=== PATIENT | male | born 1955 | race Caucasian/White ===

== ENCOUNTER 2017-07-18 13:03 | Inpatient (IN) ==
[2017-07-18] MEDS ORDERED: methylPREDNISolone 125 MG/2 ML VIAL IVP ONE (13:10)
[2017-07-18] MEDS ORDERED: Ipratropium/Albuterol Neb 3 ML IH ONE (13:10)
[2017-07-18 13:37] LABS: Basophils % 0.2 %; Eosinophils # 0.1 K/mcL (0.0-0.6); Hematocrit 44.6 % (37.5-50.1); Hemoglobin 15.3 g/dL (12.9-16.9); Lymphocytes # 1.4 K/mcL (0.6-4.6); Lymphocytes % 14.6 %; Mean Corpuscular HGB Conc 34.3 g/dL (31.6-35.5); Mean Corpuscular Hemoglobin 30.5 pg (28.0-33.3); Mean Platelet Volume 10.3 fL (9.4-12.4); Monocytes % 10.3 %; Platelet Count 237 K/mcL (140-400); Red Blood Count 5.01 M/mcL (4.19-5.50); Red Cell Distribution Width 13.1 % (11.5-14.5); Segmented Neutrophils % 72.9 %
[2017-07-18 13:44] LABS: Neutrophils # 6.9 K/mcL (1.6-8.9)
--- NOTE | 2017-07-18 13:47 | Emergency Department Note ---
Disposition Clinical Impression: Acute exacerbation of chronic obstructive airways disease, KAMERON (acute kidney injury), Low O2 saturation Congestive heart failure Qualifiers: Congestive heart failure type: unspecified congestive heart failure type Congestive heart failure chronicity: acute on chronic Qualified Code(s): I50.9 - Heart failure, unspecified Disposition: Admitted As Inpatient Condition: Fair Time of Disposition: 15:12 SOB HPI - General Chief Complaint: ED Shortness of Breath/Dyspnea Stated Complaint: francisco Time Seen by Provider: 07/18/17 13:09 Source: patient, EMS Mode of arrival: EMS Limitations: no limitations Nursing Notes Reviewed: Yes Vital Signs Reviewed: Yes - History of Present Illness 62-year-old male since the ED complaining of shortness of breath is gone on for about 2 weeks. He put a cold and did not come in until now he said that he is having a hard time breathing at 20 came here. Patient presented with EMS. He does have a history of CHF and COPD. He does have CPAP machine at home does not normally use oxygen at home. He has never had be intubated due to his COPD. Although he has had to be admitted. He has never been on BiPAP. Patient states this feels like either CHF or COPD exacerbation. Patient does have a history of being hypotensive in the 80/60s which is normal for him. Patient states he is felt warm but has not checked the temperature. He is on no semi-increased swelling in his legs has also more in his belly. He is complaining of no nausea or vomiting. No headaches or blurry vision. No abdominal pain. No changes with bowel movements or pain with urination. He has no back pain. He is having no chest pain just feels a hard to catch his breath. Patient otherwise has no complaints. - Related Data Home Medications Medication Instructions Recorded Confirmed Albuterol Sulfate [Albuterol 1 - 2 puff IH Q4HR PRN 08/16/15 07/18/17 Inhaler] Atorvastatin [Lipitor] 40 mg PO DAILY 08/16/15 07/18/17 Fluticasone Propionate Nasal 50 mcg NS DAILY 08/16/15 07/18/17 [Flonase] Hydrochlorothiazide 25 mg PO DAILY 08/16/15 07/18/17 Lisinopril [Zestril] 10 mg PO DAILY 08/16/15 07/18/17 Carvedilol [Carvedilol] 12.5 mg PO BID 07/18/17 07/18/17 Ciprofloxacin/Dex *EAR* Susp 1 drop BOTH EARS BID 07/18/17 07/18/17 [Ciprodex *EAR* Susp] Fluticasone/Salmeterol [Advair Hfa 1 puff IH BID 07/18/17 07/18/17 115-21 Mcg Inhaler] Furosemide [Lasix] 20 mg PO DAILY 07/18/17 07/18/17 Montelukast [Singulair] 10 mg PO DAILY 07/18/17 07/18/17 Allergies Allergy/AdvReac Type Severity Reaction Status Date / Time penicillin V Allergy Mild REDNESS Verified 07/18/17 13:11 HIVES COMA 3 DAYS Review of Systems: 10 point review of systems done and negative unless otherwise stated in history of present illness. All systems ED: reviewed and negative except as stated. Review of Systems: As Per HPI Past Medical History - Past Medical History Attestation: Yes The following information was validated with the patient. Medical history: Reports: CHF, COPD, hypertension Surgical history: Reports: other Psychiatric history: Reports: no psych history - Social History Smoking Status: Never smoker Smokeless Tobacco Status: No Alcohol use: Reports: occasionally Drug use: Reports: none Physical Exam - General Limitations: no limitations General appearance: alert, in no apparent distress - Head Head exam: atraumatic - Eye Eye exam: Present: normal appearance, PERRL, EOMI - ENT ENT exam: normal exam, normal oropharynx, mucous membranes moist - Neck Neck exam: Present: normal inspection, full ROM, trachea midline - Chest Chest inspection: Present: normal inspection, symmetric chest wall rise - Respiratory Respiratory exam: Present: normal lung sounds bilaterally, respiratory distress (Very mild), wheezes (End expiratory), accessory muscle use, prolonged expiratory phase. Absent: stridor - Cardiovascular Cardiovascular exam: Present: regular rate, normal rhythm, normal heart sounds - Abdominal Exam Abdominal exam: Present: soft, Non-Tender, distention, normal bowel sounds. Absent: tenderness, guarding, rebound, rigidity - Extremities Exam Extremities exam: Present: normal inspection, full ROM, normal capillary refill , pedal edema (Bilateral 1+ pedal edema.). Absent: tenderness - Expanded Lower Extremity Exam Neurovascular/Tendon exam: Absent: motor deficit, sensory deficit, tendon deficit - Back Exam Back exam: Present: normal inspection, full ROM. Absent: tenderness, CVA tenderness (R), CVA tenderness (L) - Neurological Exam Neurological exam: Present: alert, oriented X3 - Skin Skin exam: Present: warm, dry, intact, normal color Course Course Narrative: 62-year-old male presents to the ED complaining of shortness of breath does not history of CHF and COPD. We will do a normal chest pain and COPD workup including a 2 view chest x-ray, EKG, CBC, BMP, lactate, BNP, troponin. We will also get blood cultures. He was given 325 aspirin prior to his arrival. Due to his pressure we will not give him nitroglycerin. We will give him 125 of Solu-Medrol and give him 6 mL DuoNeb as yard he had 3 mL an route. Patient is okay with this plan. Patient most likely will need to be admitted for further evaluation. Vital Signs Temperature 99.2 F 07/18/17 13:05 Pulse Rate 67 07/18/17 13:05 Respiratory Rate 18 07/18/17 13:05 Blood Pressure 86/65 07/18/17 13:05 O2 Sat by Pulse Oximetry 90 07/18/17 13:05 Temperature 99.2 F 07/18/17 13:10 Pulse Rate 67 07/18/17 13:10 Respiratory Rate 18 07/18/17 13:10 Blood Pressure 86/65 07/18/17 13:10 O2 Sat by Pulse Oximetry 95 07/18/17 13:11 Oxygen Delivery Oxygen Delivery Room Air Shortness of Breath/Dyspnea - [facility] Narrative Medical decision making narrative: 62-year-old male present to the ED complaining of shortness of breath he does have history of CHF, COPD. when patient presented he was hypotensive 80/60 after talking to him he states that is his normal blood pressure as he normally runs at that pressure. He states that the stress of breath has been going on for a while. We did get basic labs which did show that he had an acute kidney injury and with an elevated creatinine. He also was low on potassium so we gave him by mouth potassium here. I gave him a dose of Solu-Medrol as well as a breathing treatment. Here he got aspirin prior to arrival as we did not give him anything here. His DuoNeb treatment that he did get helped him feel a lot better did help with his breathing. Chest x-ray was done outside facility which showed atelectasis and cardiomegaly. His [employer] is not here so we had to call for an EKG. He did have a left bundle-branch block but based on old EKG this is old for him. Patient has not had an echo or stress test done in a few years. Patient also had an elevated BNP which does go with his CHF. I admitted the patient to the hospitalist Dr. Machado who agreed to accept the patient for CHF exacerbation, acute kidney injury as well as mild COPD exacerbation. Patient is admitted in stable condition. He is no longer hypoxic as he is on now for liters by nasal cannula and satting at 96%. He normally does not wear oxygen at home. - Medical Records Medical records reviewed: Yes I reviewed the patient's medical records. - Lab Data Lab results reviewed: Yes I reviewed the patient's lab results. Result diagrams: 07/18/17 13:31 07/18/17 13:31 Lab Results 07/18/17 07/18/17 07/18/17 Range/Units 13:21 13:31 13:31 WBC 9.4 (4.3-11.1) K/mcL RBC 5.01 (4.19-5.50) M/mcL Hgb 15.3 (12.9-16.9) g/dL Hct 44.6 (37.5-50.1) % MCV 89.0 (83.0-100.0) fL MCH 30.5 (28.0-33.3) pg MCHC 34.3 (31.6-35.5) g/dL RDW 13.1 (11.5-14.5) % Plt Count 237 (140-400) K/mcL MPV 10.3 (9.4-12.4) fL Immature Gran % 1.0 (0-4) % Seg Neutrophils % 72.9 % Lymphocytes % 14.6 % Monocytes % 10.3 % Eosinophils % 1.0 % Basophils % 0.2 % Neutrophils # 6.9 (1.6-8.9) K/mcL Lymphocytes # 1.4 (0.6-4.6) K/mcL Monocytes # 1.0 (0.0-1.3) K/mcL Eosinophils # 0.1 (0.0-0.6) K/mcL Basophils # 0.0 (0.0-0.2) K/mcL Reactive Lymphocytes Present A (Not Present) Platelet Estimate Normal (Normal) Sodium 136 (136-145) mEq/L Potassium 3.3 L (3.5-4.5) mEq/L Chloride 102 (98-109) mEq/L Carbon Dioxide 23 (19-29) mEq/L BUN 17 (8-26) mg/dL Creatinine 1.39 H (0.72-1.25) mg/dL Est GFR ( Amer) > 60 (> 60) Est GFR (Non-Af Amer) 52 L (> 60) BUN/Creatinine Ratio 12 (6-26) Glucose 127 H (70-99) mg/dL Calculated Osmolality 285 (280-300) Lactic Acid (0.5-2.2) mmol/L Calcium 9.1 (8.6-10.8) mg/dL Troponin I 0.03 (0-0.03) ng/mL B-Natriuretic Peptide (0-100) pg/mL 07/18/17 07/18/17 Range/Units 13:31 13:31 WBC (4.3-11.1) K/mcL RBC (4.19-5.50) M/mcL Hgb (12.9-16.9) g/dL Hct (37.5-50.1) % MCV (83.0-100.0) fL MCH (28.0-33.3) pg MCHC (31.6-35.5) g/dL RDW (11.5-14.5) % Plt Count (140-400) K/mcL MPV (9.4-12.4) fL Immature Gran % (0-4) % Seg Neutrophils % % Lymphocytes % % Monocytes % % Eosinophils % % Basophils % % Neutrophils # (1.6-8.9) K/mcL Lymphocytes # (0.6-4.6) K/mcL Monocytes # (0.0-1.3) K/mcL Eosinophils # (0.0-0.6) K/mcL Basophils # (0.0-0.2) K/mcL Reactive Lymphocytes (Not Present) Platelet Estimate (Normal) Sodium (136-145) mEq/L Potassium (3.5-4.5) mEq/L Chloride (98-109) mEq/L Carbon Dioxide (19-29) mEq/L BUN (8-26) mg/dL Creatinine (0.72-1.25) mg/dL Est GFR ( Amer) (> 60) Est GFR (Non-Af Amer) (> 60) BUN/Creatinine Ratio (6-26) Glucose (70-99) mg/dL Calculated Osmolality (280-300) Lactic Acid 1.3 (0.5-2.2) mmol/L Calcium (8.6-10.8) mg/dL Troponin I (0-0.03) ng/mL B-Natriuretic Peptide 330 H (0-100) pg/mL - Radiology Data Radiology results reviewed: Yes I reviewed the patient's radiology results. - EKG Data EKG attestation: Yes I reviewed and interpreted this EKG. EKG results narrative: EKG done at 1305 myself and the attending shows an atrial paced rhythm at a rate of 84, NJ interval 216, QRS 124, QTC 449 with a leftward axis. There are signs of a left bundle branch block which is old based on old EKG in leads 1 aVL , V5 V6 otherwise no ST changes, no T-wave abnormalities. No signs of heart strain or hypertrophy. No other heart blocks. No signs of WPW/forgot his syndrome is compared with an old EKG done 05/24/14 that came from his [employer] in [place] that we had to get faxed which also shows the incomplete left bundle branch block but no other acute changes. Attestation Statement - Attestation Attestation: I examined this patient and my medical decision-making was reviewed with the Resident Physician, Dr. Leon. I agree with the documented findings, disposition and treatment plan as described except to the extent set forth below. Patient is a morbidly obese 62-year-old white male with history of CHF, COPD, CAD who presents to the emergency department today with increasing shortness of breath past few days. Patient states that his became ill approximately a week ago with cough congestion and upper respiratory symptoms and was placed on antibiotics, shortly after he began developing similar symptoms with some increased nasal congestion and coughing gradually worsening shortness of breath. Patient denies any fevers but has been having occasional chills and denies any posttussive emesis or hemoptysis. Patient went to an [facility] urgent care for evaluation today and they are he was found to be hypoxic, and chest x-ray showed mild interstitial edema with cardiomegaly so he was sent here for evaluation of possible exacerbation of his CHF. Patient denies any chest pain pressure or heaviness on arrival, is having increased work of breathing and tachypnea with hypoxia on room air. Patient is not on any supplemental oxygen at home. Patient states that his [employer] that he sees is out of [place]. Agree patient's physical exam findings as documented. Patient was hypotensive and hypoxic on arrival to the ED. Patient was placed on monitor tech continuous pulse ox IV saline well was established and he was placed on supplemental oxygen. Patient's labs were drawn and sent and EKG was obtained and chest x-ray was reviewed from the outlying facility. Chest x-ray does show cardiomegaly with interstitial edema no pleural effusions were seen. Patient's EKG shows a left bundle-branch morphology without acute ischemia, we obtained an old EKG from [place] which shows similar findings so this is not new today. Patient also has an AICD in place. Patient received aspirin, aerosols and IV steroids and states he feels that the symptoms are improved although he remains hypoxic on room air. His work of breathing has significantly improved. Patient's labs show an elevation in his BNP as well as his serum creatinine. At this time we will admit the patient for acute respiratory distress with hypoxia which is likely secondary to a combination of COPD exacerbation as well as his CHF. Case was discussed with the hospitalist who accepted the patient for admission for further evaluation and management.
[2017-07-18 13:51] LABS: BUN/Creatinine Ratio 12 (6-26); Blood Urea Nitrogen 17 mg/dL (8-26); Calcium 9.1 mg/dL (8.6-10.8); Carbon Dioxide 23 mEq/L (19-29); Chloride 102 mEq/L (98-109); Glucose 127 mg/dL (70-99); Osmolality,Calculated 285 (280-300); Potassium 3.3 mEq/L (3.5-4.5); Sodium 136 mEq/L (136-145); eGFR For African Americans > 60 (> 60); eGFR For Non-African Americans 52 (> 60)
[2017-07-18 13:58] LABS: Platelet Estimate Normal (Normal); Reactive Lymphocytes Present (Not Present)
[2017-07-18] MEDS ORDERED: Mag Hydrox/Al Hydrox/Simeth 30 ML UDC PO PRN (17:33)
[2017-07-18] MEDS ORDERED: Naloxone 0.4 MG/ML INJ IVP PRN (17:33)
[2017-07-18] MEDS ORDERED: Albuterol 2.5 MG/3 ML NEBULIZER IH PRN (17:45)
--- NOTE | 2017-07-18 18:26 | Internal Med History&Physical ---
<Mayra Doran - Last Filed: 07/18/17 18:53> Date of Encounter: 07/18/17 Time of Encounter: 18:20 Assessment and Plan (1) Congestive heart failure Current visit: Yes Status: Acute Patient has been in some increasing shortness of breath, he does have history of CHF with 25-30%. He has cardiologists in [place]. He has been experiencing lower extremity edema as well as abdominal girth swelling. He states he has been compliant with diet and fluid intake. We will diuresis patient increasing Lasix to 40 mg IV twice a day 2 monitor intake and output and daily weights [address] on fluid resection 1500ml 5 low Na diet. 6 obtain records from [place] cardiology Qualifiers: Congestive heart failure type: systolic Congestive heart failure chronicity : acute on chronic Qualified Code(s): I50.23 - Acute on chronic systolic ( congestive) heart failure (2) KAMERON (acute kidney injury) Current visit: Yes Status: Acute 1 patient has increasing creatinine 1.39. Baseline is around 1. Most likely prerenal patient's blood pressure has been in the 80s and he is on lisinopril. We will hold for now 2 continue to diurese and monitor creatinine 3 monitor intake and output daily weights 4. Avoid nephrotoxins (3) Acute and chronic respiratory failure Current visit: Yes Status: Acute 1 upon presentation patient was hypoxic 90 % on RA. most likely related to CHF exacerbation we will continue with O2 titrating to maintain Sp02 >92% will diurese patient, and continue with bronchodilators Qualifiers: Respiratory failure complication: hypoxia Qualified Code(s): J96.21 - Acute and chronic respiratory failure with hypoxia (4) COPD (chronic obstructive pulmonary disease) Current visit: No Status: Chronic 1 patient has been experiencing increasing shortness of breath and cough. Does have history of COPD. will continue with O2 titrating to maintain Spo2 greater than 92 % 2 continue with bronchodilators Qualifiers: COPD type: unspecified COPD Qualified Code(s): J44.9 - Chronic obstructive pulmonary disease, unspecified (5) DVT prophylaxis Current visit: Yes Status: Acute Heparin subcutaneous Internal Medicine - H&P: HPI Chief complaint: SOB Admitted From: Emergency Dept Plans for Post Hospital Care: Home History of present illness: Mr. Gomez is a 62 year old male HTN, copd CHF pacemaker. Patient has been experiencing for the past 2 weeks of productive cough. Describes his sputum is clear. Denies any fevers or chills nausea vomiting diarrhea. He denies any weight gain however he does have lower extremity edema as well as increasing abdominal girth. He denies any chest pain he has had some shortness of breath. He attributed his symptoms to cold symptoms. He went to urgent care for evaluation which advised him to come to the ER. He has a history of congestive heart failure he does see cardiology [facility]. States that his EF is approximately 2530%. ER evaluation lab work did show subtle AK I troponin was ok elevated BNP did have a low blood pressure on presentation which he states normally his systolic was in the 80s. he was hypoxic on presentation he was placed on nasal cannula and improved to 96%. Does not normally wear oxygen at home. He has been admitted for further workup and evaluation. Presently patient denies any chest pain or shortness of breath he is not. He is not in any respiratory distress. Vital signs are stable. I reviewed this case with Dr. Crandall who agrees to plan. Past Med Surg Social Fam HX - Past Medical History Medical history: CHF, COPD, hypertension Psychiatric history: no psych history - Past Surgical History Surgical History: other - Social History Smoking Status: Never smoker Smokeless Tobacco Status: No Alcohol use: occasionally Drug use: none - Additional Family History Additional family history: Father has history of heart disease Internal Medicine - H&P: Meds Albuterol Sulfate [Albuterol Inhaler] 1 - 2 puff IH Q4HR PRN 08/16/15 [History] Atorvastatin [Lipitor] 40 mg PO DAILY 08/16/15 [History] Fluticasone Propionate Nasal [Flonase] 50 mcg NS DAILY 08/16/15 [History] Hydrochlorothiazide 25 mg PO DAILY 08/16/15 [History] Lisinopril [Zestril] 10 mg PO DAILY 08/16/15 [History] Carvedilol [Carvedilol] 12.5 mg PO BID 07/18/17 [History] Ciprofloxacin/Dex *EAR* Susp [Ciprodex *EAR* Susp] 1 drop BOTH EARS BID [History] Fluticasone/Salmeterol [Advair Hfa 115-21 Mcg Inhaler] 1 puff IH BID 07/18/17 [ History] Furosemide [Lasix] 20 mg PO DAILY 07/18/17 [History] Montelukast [Singulair] 10 mg PO DAILY 07/18/17 [History] 3 Allergy/AdvReac Type Severity Reaction Status Date / Time penicillin V Allergy Mild REDNESS Verified 07/18/17 13:11 HIVES COMA 3 DAYS All Systems PM: A 10-system review of systems was performed and is negative for pertinent findings except as documented above in the HPI. - Constitutional Constitutional: no chills, no fever(s), no night sweats - EENT Eyes: no change in vision, no discharge, no pain, no photophobia Nose, mouth and throat: no dysphagia, no nasal discharge, no neck pain, no sore throat - Respiratory Respiratory: cough, dyspnea on exertion, no dyspnea, no wheezing, no excessive phlegm production - Gastrointestinal Gastrointestinal: no abdominal pain, no diarrhea, no hematemesis, no hematochezia, no melena, no nausea, no vomiting - Musculoskeletal Musculoskeletal ROS IM: no numbness, no tingling - Integumentary Integumentary IM: no rash, no unusual bruising - Neurological Neurological ROS: no confusion, no convulsions, no focal weakness, no numbness, no tingling, no tremor(s) - Hematologic/Lymphatic Hematologic/Lymphatic: no easy bruising - Constitutional Vitals: Temp Pulse Resp BP Pulse Ox 98.3 F 66 12 120/85 92 07/18/17 16:17 07/18/17 16:17 07/18/17 16:17 07/18/17 16:17 07/18/17 16:17 General appearance: Present: A&O X 3, morbidly obese - Head Head exam: Present: atraumatic, normocephalic - Eye Eye exam: Present: PERRL, conjuntiva pink, sclera anicteric Pupils: Present: PERRL - Neck Neck exam general surgery: Present: supple, trachea midline. Absent: lymphadenopathy - Respiratory Respiratory exam: Present: rales. Absent: accessory muscle use, rhonchi, wheezes - Cardiovascular Cardiovascular exam: Present: RRR, +S1, +S2. Absent: diastolic murmur, gallop, rubs, systolic murmur - GI/Abdominal GI/Abdominal exam: Present: normal bowel sounds, soft, no peritoneal signs. Absent: distended, tenderness - Extremities Exam Extremities exam: Present: warm, radial pulses palpable and symmetrical. Absent : calf tenderness, cyanotic, pedal edema - Neurological Exam Neurological exam: Present: CN II-XII intact, oriented X3, no focal deficits. Absent: pronater drift, facial droop, speech deficit - Skin Skin exam: Present: dry, intact Internal Med - H&P Results - Labs CBC & Chem 7: 07/18/17 13:31 07/18/17 13:31 - Impressions paced rhythm <Cristhian Machado P - Last Filed: 07/20/17 13:47> Date of Encounter: 07/20/17 Internal Medicine - H&P: HPI History of present illness: Mr. Gomez is a 62 year old male All Systems PM: A 10-system review of systems was performed and is negative for pertinent findings except as documented above in the HPI. - Constitutional Vitals: Temp Pulse Resp BP Pulse Ox 98.3 F 60 18 110/74 96 07/20/17 06:58 07/20/17 06:58 07/20/17 11:04 07/20/17 06:58 07/20/17 11:04 Internal Med - H&P Results - Labs CBC & Chem 7: 07/20/17 02:55 07/20/17 02:55 Labs: Short CBC 07/20/17 Range/Units 02:55 WBC 11.9 H (4.3-11.1) K/mcL Hgb 15.0 (12.9-16.9) g/dL Hct 43.9 (37.5-50.1) % Plt Count 259 (140-400) K/mcL Neutrophils # 8.0 (1.6-8.9) K/mcL BMP 07/20/17 02:55 Sodium 138 Potassium 3.5 Chloride 102 Carbon Dioxide 25 BUN 26 Creatinine 1.49 H Glucose 129 H Calcium 8.9 - ABG Interpretation ABG results: 07/20/17 09:36 ABG pH 7.44 ABG pCO2 38 ABG pO2 67 L ABG HCO3 26 ABG Total CO2 27 H ABG O2 Saturation 94 L ABG Base Excess 2 - Impressions ITS Impressions Echocardiogram 07/19/17 07:57 Impressions: Technically sub-optimal due to body habitus. LVEF 30%. Severely dilated left ventricle. Severe global left ventricular systolic dysfunction. Moderate left ventricular diastolic dysfunction. Grossly, dilated right ventricle with normal appearing function. Severely dilated left atrium. No evidence of pulmonary hypertension. No significant valve dysfunction noted. A device lead was visualized in the right atrium and right ventricle. Left Ventricular Wall Motion: Rest Echo Findings The apex, apical inferior, mid inferior, basal inferior, apical anterior, mid anterior, basal anterior, apical septal, mid inferior septal, basal inferior septal, apical lateral, mid anterior lateral, basal anterior lateral, mid anterior septal, mid inferior lateral, basal anterior septal and basal inferior lateral pérez were hypokinetic. Findings: Study Quality * Technically sub-optimal due to body habitus. ECG Findings * Normal sinus rhythm. Left Ventricle * LVEF 30%. * Severely dilated left ventricle. * Severe global left ventricular systolic dysfunction. * Moderate left ventricular diastolic dysfunction. Right Ventricle * Grossly, dilated right ventricle with normal appearing function. Left Atrium * Severely dilated left atrium. Right Atrium * Mild to moderately dilated right atrium. Interatrial Septum * Interatrial septum not well evaluated. Aortic Valve * Trileaflet aortic valve with normal function. * No aortic regurgitation. * No aortic stenosis. Mitral Valve * Normal mitral valve structure and function. * No mitral stenosis. * Trace mitral regurgitation. Tricuspid Valve * Normal tricuspid valve structure and function. * Trace tricuspid regurgitation. * No evidence of pulmonary hypertension. Pulmonic Valve * Pulmonic valve is not well visualized. * No pulmonic regurgitation. Aorta * Normally sized aortic root. Pericardium * The pericardium appears normal. IVC * The IVC is not well evaluated. Device lead * A device lead was visualized in the right atrium and right ventricle. Pulmonary Artery * Pulmonary artery not well visualized. - Attending Attestation I examined this patient and my medical decision-making was reviewed with the Resident Physician/MACHINIST GENERAL. I agree with the documented findings, disposition and treatment plan as described except to the extent set forth below.
[2017-07-18] MEDS ORDERED: Benzonatate 100 MG CAPSULE PO PRN (18:55)
[2017-07-18] MEDS ORDERED: Acetaminophen 325 MG TABLET PO ONE (19:51)
[2017-07-18] MEDS: *HR* Heparin 5,000 UNIT/ML VIAL SQ SCH (20:01)
[2017-07-18] MEDS: Furosemide 20 MG/2 ML VIAL IVP SCH (20:01)
[2017-07-18] MEDS: Ipratropium/Albuterol Neb 3 ML IH SCH (23:50)
[2017-07-19 01:40] LABS: Basophils % 0.1 %; Hematocrit 43.1 % (37.5-50.1); Hemoglobin 14.9 g/dL (12.9-16.9); Immature Granulocytes % 1.1 % (0-4); Lymphocytes # 1.1 K/mcL (0.6-4.6); Mean Corpuscular HGB Conc 34.6 g/dL (31.6-35.5); Mean Corpuscular Hemoglobin 30.8 pg (28.0-33.3); Mean Corpuscular Volume 89.2 fL (83.0-100.0); Mean Platelet Volume 10.3 fL (9.4-12.4); Monocytes # 0.3 K/mcL (0.0-1.3); Neutrophils # 6.8 K/mcL (1.6-8.9); Platelet Count 244 K/mcL (140-400); Red Blood Count 4.83 M/mcL (4.19-5.50); Segmented Neutrophils % 81.8 %
[2017-07-19 01:44] LABS: INR 1.2; Prothrombin Time 12.6 Seconds (9.4-12.1)
[2017-07-19 01:47] LABS: Activated Partial Thrombo Time 26.9 Seconds (26.0-36.0)
[2017-07-19 01:51] LABS: Albumin 2.9 g/dL (3.5-5.0); Albumin/Globulin Ratio 0.7 (1.1-2.2); Calcium 9.5 mg/dL (8.6-10.8); Chol/HDL Ratio 6.6 (0-4.9); Globulin 4.3 g/dL (2.4-3.5); Magnesium 2.1 mg/dL (1.6-2.6); Phosphorous 2.7 mg/dL (2.3-4.7); Total Protein 7.2 g/dL (6.0-8.3)
[2017-07-19 02:08] LABS: Reactive Lymphocytes Present (Not Present)
[2017-07-19 02:10] LABS: Platelet Estimate Normal (Normal)
[2017-07-19] MEDS: Ipratropium/Albuterol Neb 3 ML IH SCH ×4 (04:37→23:47)
[2017-07-19] MEDS: *HR* Heparin 5,000 UNIT/ML VIAL SQ SCH ×2 (05:17→19:54)
[2017-07-19] MEDS: Furosemide 20 MG/2 ML VIAL IVP SCH ×2 (08:57→22:44)
--- NOTE | 2017-07-19 12:56 | Internal Med Progress Note ---
<Chemo Vivar - Last Filed: 07/19/17 12:53> Date of Encounter: 07/19/17 Time of Encounter: 12:53 - Assessment and plan (1) Congestive heart failure Current Visit: Yes Status: Acute Assessment and plan: Worsening dyspnea for 2 weeks with LE and abdominal edema CXR: mild cardiomegaly and interstitial edema. No pleural effusion or pneumothorax. No focal consolidation. 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 with Yeast Supervisor in [place] - reports his EF is 25-30% Echo pending BNP 330, 352 Troponins negative x4 - no CP or acute ischemic EKG changes Continue Lasix, I/Os, daily weights Qualifiers: Congestive heart failure type: systolic Congestive heart failure chronicity : acute on chronic Qualified Code(s): I50.23 - Acute on chronic systolic ( congestive) heart failure (2) KAMERON (acute kidney injury) Current Visit: Yes Status: Acute Assessment and plan: Cr 1.54 (baseline 1), GFR 46 Continue to hold NICHELLE and HCTZ (3) COPD (chronic obstructive pulmonary disease) Current Visit: No Status: Chronic Assessment and plan: Continue O2 as needed and bronchodilators Qualifiers: COPD type: unspecified COPD Qualified Code(s): J44.9 - Chronic obstructive pulmonary disease, unspecified (4) Acute and chronic respiratory failure Current Visit: Yes Status: Acute Assessment and plan: Hypoxic on presentation - 90% on RA Continue O2 supplementation as needed - wean as tolerated Qualifiers: Respiratory failure complication: hypoxia Qualified Code(s): J96.21 - Acute and chronic respiratory failure with hypoxia (5) DVT prophylaxis Current Visit: Yes Status: Acute Assessment and plan: SQ heparin - Subjective Interval history: Pt sitting comfortably in bed. He reports dyspnea, clear productive cough, LE and abdominal edema. He reports that his breathing is improved today compared to yesterday. His voice is very hoarse and he states it has been that way for a couple of weeks. Also reports some loose stool lately, but not watery. He was treated with antibiotics about 3 weeks ago for cellulitis. He denies fevers, chills, syncope, chest pain, palpitations, N/V/C, dysuria, or leg pain. - Constitutional Vitals: Temp Pulse Resp BP Pulse Ox 97.7 F 93 14 105/77 92 07/19/17 10:40 07/19/17 10:40 07/19/17 10:40 07/19/17 10:40 07/19/17 10:40 General appearance: Present: A&O X 3, morbidly obese, no acute distress - Head Head exam: Present: atraumatic, normocephalic - Eye Eye exam: Present: conjuntiva pink, sclera anicteric - Neck Neck exam general surgery: Present: supple, trachea midline. Absent: lymphadenopathy - Respiratory Respiratory exam: Present: decreased breath sounds, rales (basilar). Absent: accessory muscle use, rhonchi, wheezes - Cardiovascular Cardiovascular exam: Present: RRR, +S1, +S2. Absent: diastolic murmur, systolic murmur - GI/Abdominal GI/Abdominal exam: Present: normal bowel sounds, soft, no peritoneal signs. Absent: distended, tenderness - Extremities Exam Extremities exam: Present: pedal edema, warm, radial pulses palpable and symmetrical. Absent: calf tenderness, cyanotic - Neurological Exam Neurological exam: Present: CN II-XII intact, oriented X3, no focal deficits. Absent: facial droop, speech deficit - Skin Skin exam: Present: dry, intact Internal Medicine: Result - Labs CBC & Chem 7: 07/19/17 01:26 07/19/17 01:26 Labs: Short CBC 07/19/17 Range/Units 01:26 WBC 8.3 (4.3-11.1) K/mcL Hgb 14.9 (12.9-16.9) g/dL Hct 43.1 (37.5-50.1) % Plt Count 244 (140-400) K/mcL Neutrophils # 6.8 (1.6-8.9) K/mcL BMP 07/19/17 01:26 Sodium 134 L Potassium 4.0 Chloride 102 Carbon Dioxide 23 BUN 23 Creatinine 1.54 H Glucose 186 H Calcium 9.5 Cardiac Enzymes 07/18/17 07/19/17 07/19/17 Range/Units 19:34 01:26 07:42 Troponin I 0.03 0.02 0.02 (0-0.03) ng/mL Liver Function 07/19/17 Range/Units 01:26 Total Bilirubin 1.0 (0.2-1.2) mg/dL AST 32 (5-34) Units/L ALT 28 (0-55) Units/L Alkaline Phosphatase 95 (38-126) Units/L Albumin 2.9 L (3.5-5.0) g/dL - ABG Interpretation ABG results: PT/INR, D-dimer PT 12.6 Seconds (9.4-12.1) H 07/19/17 01:26 Consult Discharge Plan - Plan Referrals: Virginie Everett MD [Primary Care Provider] - <Clover Lin - Last Filed: 07/19/17 15:31> Date of Encounter: 07/19/17 - Constitutional Vitals: Temp Pulse Resp BP Pulse Ox 97.7 F 93 14 105/77 92 07/19/17 10:40 07/19/17 10:40 07/19/17 10:40 07/19/17 10:40 07/19/17 10:40 Internal Medicine: Result - Labs CBC & Chem 7: 07/19/17 01:26 07/19/17 01:26 Labs: Short CBC 07/19/17 Range/Units 01:26 WBC 8.3 (4.3-11.1) K/mcL Hgb 14.9 (12.9-16.9) g/dL Hct 43.1 (37.5-50.1) % Plt Count 244 (140-400) K/mcL Neutrophils # 6.8 (1.6-8.9) K/mcL BMP 07/19/17 01:26 Sodium 134 L Potassium 4.0 Chloride 102 Carbon Dioxide 23 BUN 23 Creatinine 1.54 H Glucose 186 H Calcium 9.5 Cardiac Enzymes 07/18/17 07/19/17 07/19/17 Range/Units 19:34 01:26 07:42 Troponin I 0.03 0.02 0.02 (0-0.03) ng/mL Liver Function 07/19/17 Range/Units 01:26 Total Bilirubin 1.0 (0.2-1.2) mg/dL AST 32 (5-34) Units/L ALT 28 (0-55) Units/L Alkaline Phosphatase 95 (38-126) Units/L Albumin 2.9 L (3.5-5.0) g/dL - ABG Interpretation ABG results: PT/INR, D-dimer PT 12.6 Seconds (9.4-12.1) H 07/19/17 01:26 - Attending Attestation I have seen and examined the patient independently. I have discussed with resident physician Dr. Vivar regarding the management plan. Agree with the documentation. Patient feels much better after treatment with Lasix. Patient has a known history of systolic CHF with EF 25-30%. Will continue IV Lasix. Repeat echo.
--- NOTE | 2017-07-19 18:05 | Electrocardiograph Report ---
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
[2017-07-20 03:05] LABS: Basophils # 0.1 K/mcL (0.0-0.2); Basophils % 0.4 %; Eosinophils # 0.1 K/mcL (0.0-0.6); Eosinophils % 0.6 %; Hematocrit 43.9 % (37.5-50.1); Lymphocytes # 2.6 K/mcL (0.6-4.6); Lymphocytes % 22.1 %; Mean Corpuscular HGB Conc 34.2 g/dL (31.6-35.5); Mean Corpuscular Hemoglobin 30.8 pg (28.0-33.3); Mean Corpuscular Volume 90.1 fL (83.0-100.0); Monocytes # 1.1 K/mcL (0.0-1.3); Platelet Count 259 K/mcL (140-400); Red Blood Count 4.87 M/mcL (4.19-5.50); Red Cell Distribution Width 13.2 % (11.5-14.5); Segmented Neutrophils % 66.9 %
[2017-07-20 03:18] LABS: Calcium 8.9 mg/dL (8.6-10.8); Potassium 3.5 mEq/L (3.5-4.5)
[2017-07-20 03:39] LABS: Platelet Estimate Normal (Normal); Reactive Lymphocytes Present (Not Present)
[2017-07-20] MEDS: Ipratropium/Albuterol Neb 3 ML IH SCH ×4 (05:23→22:35)
[2017-07-20] MEDS: *HR* Heparin 5,000 UNIT/ML VIAL SQ SCH ×2 (06:32→16:58)
[2017-07-20] MEDS: Furosemide 20 MG/2 ML VIAL IVP SCH ×2 (08:31→16:57)
[2017-07-20 09:40] LABS: ABG Base Excess 2 mEq/L (-2 to 3); ABG HCO3 26 mEq/L (21-27); ABG Oxygen Saturation 94 % (95-98); ABG PCO2 38 mmHg (35-45); ABG PH 7.44 pH Units (7.32-7.45); ABG PO2 67 mmHg (85-104); ABG TCO2 27 mEq/L (20-26)
--- NOTE | 2017-07-20 11:21 | Internal Med Progress Note ---
<Everette Cuba - Last Filed: 07/20/17 15:46> Date of Encounter: 07/20/17 Time of Encounter: 09:00 - Assessment and plan (1) Systolic CHF, acute on chronic Current Visit: Yes Status: Acute Assessment and plan: Worsening dyspnea for 2 weeks with LE edema elevated BNP 330, 352 CXR: mild cardiomegaly and interstitial edema. No pleural effusion or pneumothorax. No focal consolidation. 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 Troponins negative x4 - no CP or acute ischemic EKG changes Continue Lasix (monitor for hypotension), Bipap prn SOB/ pulmonary edema I/Os, daily weights (2) Acute exacerbation of chronic obstructive airways disease Current Visit: Yes Status: Acute Assessment and plan: Hypoxic on presentation - 90% on RA Continue O2 supplementation as needed - wean as tolerated Continue Azithromycin, steroids, bronchdialors, Mucinex, Mucomyst Patient placed on BiPap, ABG normal (3) KAMERON (acute kidney injury) Current Visit: Yes Status: Acute Assessment and plan: Cr slowly improving, cautious hydration given CHF exacerbation Continue to hold NICHELLE and HCTZ (4) Morbid obesity with BMI of 45.0-49.9, adult Current Visit: Yes Status: Acute Assessment and plan: Diet modification and exercise (5) DVT prophylaxis Current Visit: Yes Status: Acute Assessment and plan: SQ heparin - Subjective Interval history: Patient seen and examined. He appears to be in mild distress due to non- productive cough today and is currently requiring 4L supplemental O2. He does not require oxygen at baseline and reports ambulating to bathroom without difficulty. Blood pressure range is between 95-110/55-74. Patient reports some improvement in leg edema with continued Lasix and was placed on BiPap this AM to help improve pulmonary edema. - Constitutional Vitals: Temp Pulse Resp BP Pulse Ox 98.3 F 60 18 110/74 96 07/20/17 06:58 07/20/17 06:58 07/20/17 11:04 07/20/17 06:58 07/20/17 11:04 General appearance: Present: cooperative, mild distress (due to cough), A&O X 3 , morbidly obese - Head Head exam: Present: atraumatic, normal inspection, normocephalic - Eye Eye exam: Present: EOMI, conjuntiva pink, sclera anicteric - ENT ENT exam: Present: mucous membranes moist, normal oropharynx - Neck Neck exam general surgery: Present: normal inspection, supple - Respiratory Respiratory exam: Present: decreased breath sounds, rales (bibasilar), tachypnea. Absent: accessory muscle use, respiratory distress, rhonchi Additional comments: cough, 89% spO2 on 4L NC - Cardiovascular Cardiovascular exam: Present: RRR, +S1, +S2 - GI/Abdominal GI/Abdominal exam: Present: distended, normal bowel sounds. Absent: guarding, tenderness - Additional comments: no orozco - Extremities Exam Extremities exam: Present: normal inspection, warm. Absent: pedal edema - Back Exam Back exam: Present: normal inspection. Absent: paraspinal tenderness, tenderness - Neurological Exam Neurological exam: Present: alert, oriented X3, no focal deficits. Absent: speech deficit - Psychiatric Psychiatric exam: Present: normal affect, normal mood - Skin Skin exam: Present: dry, normal color, warm Internal Medicine: Result - Labs CBC & Chem 7: 07/20/17 02:55 07/20/17 02:55 Labs: Short CBC 07/20/17 Range/Units 02:55 WBC 11.9 H (4.3-11.1) K/mcL Hgb 15.0 (12.9-16.9) g/dL Hct 43.9 (37.5-50.1) % Plt Count 259 (140-400) K/mcL Neutrophils # 8.0 (1.6-8.9) K/mcL BMP 07/20/17 02:55 Sodium 138 Potassium 3.5 Chloride 102 Carbon Dioxide 25 BUN 26 Creatinine 1.49 H Glucose 129 H Calcium 8.9 - ABG Interpretation Interpretation: ABG interpreted by me ABG results: ABG ABG pH 7.44 pH Units (7.32-7.45) 07/20/17 09:36 ABG pCO2 38 mmHg (35-45) 07/20/17 09:36 ABG pO2 67 mmHg (85-104) L 07/20/17 09:36 ABG O2 Saturation 94 % (95-98) L 07/20/17 09:36 PT/INR, D-dimer PT 12.6 Seconds (9.4-12.1) H 07/19/17 01:26 Interpretation: normal - Pulse Oximetry Interpretation Digit-Finger Pulse Oximetry Readin (on 4L via NC) Actions taken: placed on BiPAP - Impressions Impressions Echocardiogram 07/19/17 07:57 Impressions: Technically sub-optimal due to body habitus. LVEF 30%. Severely dilated left ventricle. Severe global left ventricular systolic dysfunction. Moderate left ventricular diastolic dysfunction. Grossly, dilated right ventricle with normal appearing function. Severely dilated left atrium. No evidence of pulmonary hypertension. No significant valve dysfunction noted. A device lead was visualized in the right atrium and right ventricle. Left Ventricular Wall Motion: Rest Echo Findings The apex, apical inferior, mid inferior, basal inferior, apical anterior, mid anterior, basal anterior, apical septal, mid inferior septal, basal inferior septal, apical lateral, mid anterior lateral, basal anterior lateral, mid anterior septal, mid inferior lateral, basal anterior septal and basal inferior lateral pérez were hypokinetic. Findings: Study Quality * Technically sub-optimal due to body habitus. ECG Findings * Normal sinus rhythm. Left Ventricle * LVEF 30%. * Severely dilated left ventricle. * Severe global left ventricular systolic dysfunction. * Moderate left ventricular diastolic dysfunction. Right Ventricle * Grossly, dilated right ventricle with normal appearing function. Left Atrium * Severely dilated left atrium. Right Atrium * Mild to moderately dilated right atrium. Interatrial Septum * Interatrial septum not well evaluated. Aortic Valve * Trileaflet aortic valve with normal function. * No aortic regurgitation. * No aortic stenosis. Mitral Valve * Normal mitral valve structure and function. * No mitral stenosis. * Trace mitral regurgitation. Tricuspid Valve * Normal tricuspid valve structure and function. * Trace tricuspid regurgitation. * No evidence of pulmonary hypertension. Pulmonic Valve * Pulmonic valve is not well visualized. * No pulmonic regurgitation. Aorta * Normally sized aortic root. Pericardium * The pericardium appears normal. IVC * The IVC is not well evaluated. Device lead * A device lead was visualized in the right atrium and right ventricle. Pulmonary Artery * Pulmonary artery not well visualized. Consult Discharge Plan - Plan Referrals: Virginie Everett MD [Primary Care Provider] - <Clover Lin - Last Filed: 07/20/17 17:38> Date of Encounter: 07/20/17 - Constitutional Vitals: Temp Pulse Resp BP Pulse Ox 98.3 F 74 18 109/76 95 07/20/17 06:58 07/20/17 15:00 07/20/17 16:10 07/20/17 15:00 07/20/17 16:10 Internal Medicine: Result - Labs CBC & Chem 7: 07/20/17 02:55 07/20/17 02:55 Labs: Short CBC 07/20/17 Range/Units 02:55 WBC 11.9 H (4.3-11.1) K/mcL Hgb 15.0 (12.9-16.9) g/dL Hct 43.9 (37.5-50.1) % Plt Count 259 (140-400) K/mcL Neutrophils # 8.0 (1.6-8.9) K/mcL BMP 07/20/17 02:55 Sodium 138 Potassium 3.5 Chloride 102 Carbon Dioxide 25 BUN 26 Creatinine 1.49 H Glucose 129 H Calcium 8.9 - ABG Interpretation ABG results: ABG ABG pH 7.44 pH Units (7.32-7.45) 07/20/17 09:36 ABG pCO2 38 mmHg (35-45) 07/20/17 09:36 ABG pO2 67 mmHg (85-104) L 07/20/17 09:36 ABG O2 Saturation 94 % (95-98) L 07/20/17 09:36 PT/INR, D-dimer PT 12.6 Seconds (9.4-12.1) H 07/19/17 01:26 - Impressions Impressions Echocardiogram 07/19/17 07:57 Impressions: Technically sub-optimal due to body habitus. LVEF 30%. Severely dilated left ventricle. Severe global left ventricular systolic dysfunction. Moderate left ventricular diastolic dysfunction. Grossly, dilated right ventricle with normal appearing function. Severely dilated left atrium. No evidence of pulmonary hypertension. No significant valve dysfunction noted. A device lead was visualized in the right atrium and right ventricle. Left Ventricular Wall Motion: Rest Echo Findings The apex, apical inferior, mid inferior, basal inferior, apical anterior, mid anterior, basal anterior, apical septal, mid inferior septal, basal inferior septal, apical lateral, mid anterior lateral, basal anterior lateral, mid anterior septal, mid inferior lateral, basal anterior septal and basal inferior lateral pérez were hypokinetic. Findings: Study Quality * Technically sub-optimal due to body habitus. ECG Findings * Normal sinus rhythm. Left Ventricle * LVEF 30%. * Severely dilated left ventricle. * Severe global left ventricular systolic dysfunction. * Moderate left ventricular diastolic dysfunction. Right Ventricle * Grossly, dilated right ventricle with normal appearing function. Left Atrium * Severely dilated left atrium. Right Atrium * Mild to moderately dilated right atrium. Interatrial Septum * Interatrial septum not well evaluated. Aortic Valve * Trileaflet aortic valve with normal function. * No aortic regurgitation. * No aortic stenosis. Mitral Valve * Normal mitral valve structure and function. * No mitral stenosis. * Trace mitral regurgitation. Tricuspid Valve * Normal tricuspid valve structure and function. * Trace tricuspid regurgitation. * No evidence of pulmonary hypertension. Pulmonic Valve * Pulmonic valve is not well visualized. * No pulmonic regurgitation. Aorta * Normally sized aortic root. Pericardium * The pericardium appears normal. IVC * The IVC is not well evaluated. Device lead * A device lead was visualized in the right atrium and right ventricle. Pulmonary Artery * Pulmonary artery not well visualized. - Attending Attestation I have seen and examined pt independently. I have discussed with resident physician Dr Cuba regarding the management plan. Agree with the documentation. Pt still has mild SOB and cough. Cont lasix iv for CHF exacerbation. Abx, steroid, and nebulizer for COPD exacerbation.
[2017-07-20] MEDS: *HR* Acetylcysteine 20% 600 MG/3 ML ORAL SYRINGE PO SCH ×2 (12:22→22:01)
[2017-07-20] MEDS: Fluticasone Propionate Nasal 50 MCG/SPRAY BOTTLE NS SCH (12:22)
[2017-07-20] MEDS ORDERED: methylPREDNISolone 125 MG/2 ML VIAL IVP ONE (15:57)
[2017-07-20] MEDS ORDERED: Azithromycin 500 MG in D5% in Water 250 ML IVPB SCH (16:00)
[2017-07-20] MEDS: Budesonide/Formoterol 80/4.5 MDI IH SCH (22:35)
[2017-07-21] MEDS: Ipratropium/Albuterol Neb 3 ML IH SCH ×2 (04:51→10:31)
[2017-07-21] MEDS: *HR* Heparin 5,000 UNIT/ML VIAL SQ SCH (05:46)
[2017-07-21 05:59] LABS: Basophils % 0.2 %; Hematocrit 45.5 % (37.5-50.1); Hemoglobin 15.8 g/dL (12.9-16.9); Immature Granulocytes % 1.4 % (0-4); Lymphocytes # 1.3 K/mcL (0.6-4.6); Lymphocytes % 13.3 %; Mean Corpuscular HGB Conc 34.7 g/dL (31.6-35.5); Mean Corpuscular Hemoglobin 30.7 pg (28.0-33.3); Mean Corpuscular Volume 88.5 fL (83.0-100.0); Mean Platelet Volume 10.3 fL (9.4-12.4); Monocytes # 0.1 K/mcL (0.0-1.3); Monocytes % 1.1 %; Neutrophils # 8.2 K/mcL (1.6-8.9); Platelet Count 252 K/mcL (140-400); Red Blood Count 5.14 M/mcL (4.19-5.50); Red Cell Distribution Width 12.9 % (11.5-14.5)
[2017-07-21 06:08] LABS: BUN/Creatinine Ratio 20 (6-26); Blood Urea Nitrogen 24 mg/dL (8-26); Calcium 9.4 mg/dL (8.6-10.8); Carbon Dioxide 25 mEq/L (19-29); Chloride 102 mEq/L (98-109); Glucose 193 mg/dL (70-99); Osmolality,Calculated 291 (280-300); Sodium 136 mEq/L (136-145); eGFR For African Americans > 60 (> 60); eGFR For Non-African Americans > 60 (> 60)
[2017-07-21 06:24] LABS: Platelet Clumps Few (Not Present); Reactive Lymphocytes Present (Not Present); Toxic Granulation Present (Not Present)
[2017-07-21] MEDS ORDERED: Benzonatate 100 MG CAPSULE PO PRN (08:17)
[2017-07-21] MEDS: Furosemide 20 MG/2 ML VIAL IVP SCH (08:19)
[2017-07-21] MEDS: *HR* Acetylcysteine 20% 600 MG/3 ML ORAL SYRINGE PO SCH (08:20)
[2017-07-21] MEDS: Fluticasone Propionate Nasal 50 MCG/SPRAY BOTTLE NS SCH (08:21)
[2017-07-21] MEDS ORDERED: predniSONE 20 MG TABLET PO SCH (09:00)
[2017-07-21] MEDS ORDERED: Azithromycin 250 MG TABLET PO SCH (09:00)
--- NOTE | 2017-07-21 09:26 | Discharge Summary ---
<Everette Cuba - Last Filed: 07/21/17 10:35> Date of Encounter: 07/21/17 Time of Encounter: 08:00 - Discharge Diagnosis (1) Systolic CHF, acute on chronic Priority: Primary Status: Acute Comments: Worsening dyspnea for 2 weeks with LE edema elevated BNP 330, 352 CXR: mild cardiomegaly and interstitial edema. No pleural effusion or pneumothorax. No focal consolidation. 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 Troponins negative x4 - no CP or acute ischemic EKG changes Increased Lasix Bipap prn SOB/ pulmonary edema I/Os, daily weights (2) Acute exacerbation of chronic obstructive airways disease Priority: Primary Status: Acute Comments: Hypoxic on presentation - 90% on RA Continue O2 supplementation as needed - wean as tolerated Continue Azithromycin, steroids, bronchdialors, Mucinex, Mucomyst, Tessalon perles Patient placed on BiPap, ABG normal (3) KAMERON (acute kidney injury) Priority: Primary Status: Acute Comments: Cr slowly improving, cautious hydration given CHF exacerbation Continue to hold NICHELLE and HCTZ (4) Morbid obesity with BMI of 45.0-49.9, adult Priority: Secondary Status: Chronic Comments: Diet modification and exercise discussed (5) DVT prophylaxis Priority: Primary Status: Acute Comments: SQ heparin Ambulation - Discharge Medications Prescriptions: Atorvastatin [Lipitor] 40 mg PO DAILY #30 tablet Azithromycin [Zithromax] 250 mg PO DAILY #4 tablet Benzonatate [Tessalon] 100 mg PO TID PRN #30 capsule PRN Reason: Cough Carvedilol [Coreg] 12.5 mg PO BIDWM #30 tablet Furosemide [Lasix] 20 mg PO BID #60 tablet predniSONE [PredniSONE] 40 mg PO DAILY #10 tablet Home Medications: Albuterol Sulfate [Albuterol Inhaler] 1 - 2 puff IH Q4HR PRN 08/16/15 [History] Fluticasone Propionate Nasal [Flonase] 50 mcg NS DAILY 08/16/15 [History] Hydrochlorothiazide 25 mg PO DAILY 08/16/15 [History] Lisinopril [Zestril] 10 mg PO DAILY 08/16/15 [History] Ciprofloxacin/Dex *EAR* Susp [Ciprodex *EAR* Susp] 1 drop BOTH EARS BID [History] Fluticasone/Salmeterol [Advair Hfa 115-21 Mcg Inhaler] 1 puff IH BID 07/18/17 [ History] Montelukast [Singulair] 10 mg PO DAILY 07/18/17 [History] Atorvastatin [Lipitor] 40 mg PO DAILY #30 tablet 07/21/17 [Rx] Azithromycin [Zithromax] 250 mg PO DAILY #4 tablet 07/21/17 [Rx] Benzonatate [Tessalon] 100 mg PO TID PRN #30 capsule 07/21/17 [Rx] Carvedilol [Coreg] 12.5 mg PO BIDWM #30 tablet 07/21/17 [Rx] Furosemide [Lasix] 20 mg PO BID #60 tablet 07/21/17 [Rx] GuaiFENesin/Dextromethorphan [Robitussin/Dm] 10 ml PO Q6HR PRN #0 udc 07/21/17 [ Rx] Mag Hydrox/Al Hydrox/Simeth [Maalox] 15 ml PO Q6HR PRN udc 07/21/17 [Rx] predniSONE [PredniSONE] 40 mg PO DAILY #10 tablet 07/21/17 [Rx] Allergies/Adverse Reactions: 3 Allergy/AdvReac Type Severity Reaction Status Date / Time penicillin V Allergy Mild REDNESS Verified 07/18/17 13:11 HIVES COMA 3 DAYS Procedures/tests Complete & Pending: Procedures Performed prior 72 hours Category Date Time Status EV echocardiogram Routine Y 07/19/17 07:57 Completed Date of admission: 07/18/17 17:35 Primary care physician: Virginie Everett MD Consults: 07/20/17 15:55 Consult to Nurse Navigator [CONS] Routine Comment: Discharging clinician: Everette Cuba Anticipated date of discharge: 07/21/17 - Patient Status Disposition: Home, Self-Care Condition: Good Functional capacity at discharge: independent ambulation Overall status at discharge: patient is back to baseline - Discharge Instructions Instructions: Benzonatate (By mouth), Prednisone (By mouth), Azithromycin (By mouth), Atorvastatin (By mouth), Heart Failure (DC), Chronic Obstructive Pulmonary Disease (DC) Follow Up With: Virginie Everett MD [Primary Care Provider] - 07/28/17 11:00 am Additional Instructions: Continue Azithromycin and Prednisone as directed Take Lasix 20mg twice a day Fluid restricted diet (less than 1.5 liters per day) Follow up with principal statistical programmer in 1-2 weeks - Diet and Activity Activity: increase activity as tolerated Diet: low fat, low cholesterol Hospital course: Mr. Gomez is a 62 year old male with a PMH of HTN, COPD, systolic CHF, and previous AICD placement that presented c/o SOB and cough. He denies any weight gain however he does have lower extremity edema and abdominal distension. He has a history of congestive heart failure he does see cardiology [facility]. States that his EF is approximately 25-30%. Patient was hypotensive on presentation and he reported normally his systolic is in the 80s. He was hypoxic on presentation he was placed on nasal cannula and improved to 96%. Does not normally wear oxygen at home. CXR revealed mild cardiomegaly and interstitial edema with no pleural effusion or pneumothorax. Lab work revealed KAMERON, elevated BNP, and no troponenia. He has been admitted for further workup and evaluation. Echo reveled LVEF 30%, severely dilated left ventricle, severe global left ventricular systolic dysfunction, and moderate left ventricular diastolic dysfunction. Patient continued to improve with Lasix and was started on Azithromycin, steroids, bronchdialors, Mucinex, and Tessalon perles for AECOPD. Patient was instructed to follow up with PCP and cardiology upon discharge. - Time Spent with Patient Total time spent providing and/or coordinating discharge services: - Constitutional Vitals: Temp Pulse Resp BP Pulse Ox 97.8 F 61 14 130/85 93 07/21/17 06:48 07/21/17 06:48 07/21/17 06:48 07/21/17 06:48 07/21/17 06:48 General appearance: Present: cooperative, A&O X 3, morbidly obese, no acute distress, answers questions appropriately - Head Head exam: Present: atraumatic, normal inspection, normocephalic - Eye Eye exam: Present: EOMI, PERRL, conjuntiva pink, sclera anicteric - ENT ENT exam: Present: mucous membranes moist, normal oropharynx Additional comments: voice improved - Neck Neck exam general surgery: Present: normal inspection, supple - Respiratory Respiratory exam: Present: CTAB. Absent: accessory muscle use, decreased breath sounds, respiratory distress - Cardiovascular Cardiovascular exam: Present: RRR, +S1, +S2 - GI/Abdominal GI/Abdominal exam: Present: normal bowel sounds, soft. Absent: distended, tenderness - Additional comments: no orozco - Extremities Exam Extremities exam: Present: normal inspection, warm. Absent: pedal edema - Back Exam Back exam: Present: normal inspection. Absent: paraspinal tenderness, tenderness - Neurological Exam Neurological exam: Present: alert, oriented X3, no focal deficits. Absent: speech deficit - Psychiatric Psychiatric exam: Present: normal affect, normal mood - Skin Skin exam: Present: dry, normal color, warm <Thanh Schwab H - Last Filed: 07/21/17 17:45> Date of Encounter: 07/21/17 Procedures/tests Complete & Pending: Procedures Performed prior 72 hours Category Date Time Status EV echocardiogram Routine Y 07/19/17 07:57 Completed Date of admission: 07/18/17 17:35 Primary care physician: Virginie Everett MD Consults: 07/20/17 15:55 Consult to Nurse Navigator [CONS] Routine Comment: Hospital course: Mr. Gomez is a 62 year old male - Time Spent with Patient Total time spent providing and/or coordinating discharge services: - Constitutional Vitals: Temp Pulse Resp BP Pulse Ox 98.2 F 78 14 99/83 96 07/21/17 10:44 07/21/17 10:44 07/21/17 10:44 07/21/17 10:44 07/21/17 10:44 - Attending Attestation Acute chronic systolic CHF exacerbation in combination with acute COPD exacerbation likely due to acute bacterial bronchitis Increase lasix, taper prednisone, complete azithromycin Time spent on this discharge: 40 min I examined this patient and my medical decision-making was reviewed with the Resident Physician. I agree with the documented findings, disposition and treatment plan as described except to the extent set forth below.
[2017-07-21] MEDS: Budesonide/Formoterol 80/4.5 MDI IH SCH (10:31)
[2017-07-21 10:48] VITALS: BP 99/83
== END 2017-07-21 14:41 | disposition home or self-care (01) | DRG 291 ==
LOC: 2NENU 13:03 → EMEROO 13:03 → 2NENU 15:37 → SUATTDRO 17:35
PROVIDERS: ADMIT Nurse Practitioner Acute Care; ATTEND Internal Medicine

== ENCOUNTER 2017-11-12 00:39 | Observation (INO) ==
[2017-11-12] MEDS ORDERED: Aspirin 81 MG TAB.CHEW PO ONE (00:51)
[2017-11-12 00:56] LABS: Basophils % 0.4 %; Eosinophils # 0.1 K/mcL (0.0-0.6); Eosinophils % 1.1 %; Hemoglobin 16.3 g/dL (12.9-16.9); Immature Granulocytes % 0.5 % (0-4); Lymphocytes # 2.4 K/mcL (0.6-4.6); Lymphocytes % 28.2 %; Mean Corpuscular Hemoglobin 30.4 pg (28.0-33.3); Mean Corpuscular Volume 89.6 fL (83.0-100.0); Mean Platelet Volume 9.9 fL (9.4-12.4); Monocytes # 0.7 K/mcL (0.0-1.3); Monocytes % 8.9 %; Neutrophils # 5.1 K/mcL (1.6-8.9); Platelet Count 223 K/mcL (140-400); Red Blood Count 5.36 M/mcL (4.19-5.50); Red Cell Distribution Width 13.5 % (11.5-14.5); Segmented Neutrophils % 60.9 %
[2017-11-12 01:04] LABS: Activated Partial Thrombo Time 30.6 Seconds (26.0-36.0)
[2017-11-12 01:05] LABS: Prothrombin Time 11.1 Seconds (9.4-12.1)
[2017-11-12 01:21] LABS: BUN/Creatinine Ratio 11 (6-26); Blood Urea Nitrogen 14 mg/dL (8-23); Carbon Dioxide 22 mEq/L (23-29); Chloride 109 mEq/L (98-107); Glucose 121 mg/dL (70-105); Osmolality,Calculated 288 (280-300); Potassium 3.8 mEq/L (3.5-5.1); Sodium 138 mEq/L (136-145); eGFR For African Americans > 60 (> 60); eGFR For Non-African Americans 59 (> 60)
[2017-11-12 01:24] LABS: Troponin I 0.04 ng/mL (< 0.04)
[2017-11-12] MEDS ORDERED: *HR* Heparin 5,000 UNIT/ML VIAL IVP PRN ×2 (01:28)
[2017-11-12] MEDS ORDERED: *HR* Heparin 5,000 UNIT/ML VIAL IVP ONE (01:28)
[2017-11-12] MEDS: Heparin 25,000 UNIT/500 ML D5W 25,000 UNIT/500 ML BAG IVC SCH (01:36)
--- NOTE | 2017-11-12 01:47 | Emergency Department Note ---
Disposition Clinical Impression: NSTEMI (non-ST elevated myocardial infarction) Disposition: Admitted As Inpatient Condition: Fair Time of Disposition: 01:47 General Adult HPI - General Chief complaint: ED Chest Pain Stated complaint: "CP/Weakness/Hx of Afib" Time Seen by Provider: 11/12/17 00:43 Source: patient Mode of arrival: ambulatory Limitations: no limitations Nursing Notes Reviewed: Yes Vital Signs Reviewed: Yes - History of Present Illness HPI Narrative: 62-year-old male with significant past medical history of COPD and CHF presenting to the emergency department complaining of chest pain. Patient states at approximately 10 PM this evening he was exerting himself and started having severe substernal chest pain that radiated down both arms with nausea and diaphoresis. Patient is pain-free at this time. Patient does disclose a history of previous [place] but states no stents or CABG. Patient does follow cardiology and was supposed to have a chemical stress test soon. Patient does state he had shortness of breath when this occurred as well. Pain Scale: 0 - Related Data Home Medications Medication Instructions Recorded Confirmed Albuterol Sulfate [Albuterol 1 - 2 puff IH Q4HR PRN 08/16/15 11/12/17 Inhaler] Fluticasone Propionate Nasal 50 mcg NS DAILY 08/16/15 11/12/17 [Flonase] Lisinopril [Zestril] 10 mg PO DAILY 08/16/15 11/12/17 Fluticasone/Salmeterol [Advair Hfa 1 puff IH BID 07/18/17 11/12/17 115-21 Mcg Inhaler] Montelukast [Singulair] 10 mg PO DAILY 07/18/17 11/12/17 Previous Rx's Medication Instructions Recorded Atorvastatin [Lipitor] 40 mg PO DAILY #30 tablet 07/21/17 Carvedilol [Coreg] 12.5 mg PO BIDWM #30 tablet 07/21/17 Furosemide [Lasix] 20 mg PO BID #60 tablet 07/21/17 Allergies Allergy/AdvReac Type Severity Reaction Status Date / Time penicillin V Allergy Mild REDNESS Verified 09/17/17 12:04 HIVES COMA 3 DAYS All systems ED: reviewed and negative except as stated. Cardiovascular: Reports: chest pain Respiratory: Reports: dyspnea Gastrointestinal: Reports: nausea Past Medical History - Past Medical History Attestation: Yes The following information was validated with the patient. Medical history: Reports: atrial fibrillation, CHF, COPD, hypertension Surgical history: Reports: AICD Psychiatric history: Reports: no psych history - Social History Smoking Status: Never smoker Smokeless Tobacco Status: No Alcohol use: Reports: none Drug use: Reports: none Physical Exam - General Limitations: no limitations General appearance: alert, in no apparent distress - Head Head exam: atraumatic, normocephalic, normal inspection - Eye Eye exam: Present: normal appearance. Absent: scleral icterus, conjunctival injection - ENT ENT exam: normal exam, mucous membranes moist - Neck Neck exam: Present: normal inspection, full ROM. Absent: tenderness, meningismus - Chest Chest inspection: Present: normal inspection, symmetric chest wall rise. Absent : tenderness, rash - Respiratory Respiratory exam: Absent: respiratory distress, wheezes - Cardiovascular Cardiovascular exam: Present: regular rate, normal rhythm, normal heart sounds - Abdominal Exam Abdominal exam: Present: soft, Non-Tender. Absent: distention, guarding, rebound - Extremities Exam Extremities exam: Present: normal inspection, full ROM - Neurological Exam Neurological exam: Present: alert, oriented X3 - Psychiatric Psychiatric exam: Present: normal affect, normal mood - Skin Skin exam: Present: warm, intact Course Course Narrative: 62-year-old male presenting to the emergency department with chief complaint of chest pain. We will perform basic laboratory analysis including CBC, BMP, PT INR, troponin, EKG and chest x-ray. Patient is alert and oriented 3 in the room with stable vital signs. Disposition most likely admission due to patient' s history of present illness. The pending results. Patient agrees with this plan. - Reevaluation(s) Reevaluation #1: Patient's troponin elevated at 0.04. We will provide the patient with ACS dose heparin at this time. I spoke with cardiology telecommunications facility examiner Dr. Figueroa who agrees with this plan and does not feel that any further medical management is needed at this time. We will admit the patient for NSTEMI. I spoke with the accepting hospitalist Dr. Merritt who agrees to accept the patient at this time. Patient is alert and oriented 3 with stable vital signs at this time. He agrees with this plan. Vital Signs Temperature 97.6 F 11/12/17 00:44 Pulse Rate 97 11/12/17 00:44 Respiratory Rate 16 11/12/17 00:44 Blood Pressure 127/77 11/12/17 00:44 O2 Sat by Pulse Oximetry 93 11/12/17 00:44 Temperature 97.7 F 11/12/17 02:27 Pulse Rate 76 11/12/17 02:27 Respiratory Rate 16 11/12/17 02:27 Blood Pressure 100/71 11/12/17 02:27 O2 Sat by Pulse Oximetry 92 11/12/17 02:27 Oxygen Delivery Oxygen Delivery Nasal Cannula Medical Decision Making - Medical Records Medical records reviewed: Yes I reviewed the patient's medical records. - Lab Data Lab results reviewed: Yes I reviewed the patient's lab results. Result diagrams: 11/12/17 00:48 11/12/17 00:48 Lab Results 11/12/17 11/12/17 11/12/17 Range/Units 00:48 00:48 00:48 WBC 8.3 (4.3-11.1) K/mcL RBC 5.36 (4.19-5.50) M/mcL Hgb 16.3 (12.9-16.9) g/dL Hct 48.0 (37.5-50.1) % MCV 89.6 (83.0-100.0) fL MCH 30.4 (28.0-33.3) pg MCHC 34.0 (31.6-35.5) g/dL RDW 13.5 (11.5-14.5) % Plt Count 223 (140-400) K/mcL MPV 9.9 (9.4-12.4) fL Immature Gran % 0.5 (0-4) % Seg Neutrophils % 60.9 % Lymphocytes % 28.2 % Monocytes % 8.9 % Eosinophils % 1.1 % Basophils % 0.4 % Neutrophils # 5.1 (1.6-8.9) K/mcL Lymphocytes # 2.4 (0.6-4.6) K/mcL Monocytes # 0.7 (0.0-1.3) K/mcL Eosinophils # 0.1 (0.0-0.6) K/mcL Basophils # 0.0 (0.0-0.2) K/mcL PT 11.1 (9.4-12.1) Seconds INR 1.0 APTT 30.6 (26.0-36.0) Seconds Sodium 138 (136-145) mEq/L Potassium 3.8 (3.5-5.1) mEq/L Chloride 109 H (98-107) mEq/L Carbon Dioxide 22 L (23-29) mEq/L BUN 14 (8-23) mg/dL Creatinine 1.25 (0.70-1.30) mg/dL Est GFR ( Amer) > 60 (> 60) Est GFR (Non-Af Amer) 59 L (> 60) BUN/Creatinine Ratio 11 (6-26) Glucose 121 H (70-105) mg/dL Calculated Osmolality 288 (280-300) Calcium 10.0 (8.6-10.3) mg/dL Troponin I 0.04 H* (< 0.04) ng/mL - EKG Data EKG #1 EKG attestation: Yes I reviewed and interpreted this EKG. EKG results narrative: Bigeminy with PVCs. [address] depression noted in V5 and V6. 81 bpm. NM interval 172, QRS 130, QTC 414. No signs of acute ST segment elevation or ischemia noted. Compared to previous EKG completed on 07/18/2017 no significant changes noted Attestation Statement - Attestation Attestation: I, Lenny Mckeon, examined this patient and my medical decision-making was reviewed with the [employer]/PA/Advanced Practice Nurse/Resident Physician. I agree with the documented findings, disposition and treatment plan as described except to the extent set forth below. 62-year-old male presents emergency Department with concerns of acute onset chest pain, weakness, diaphoresis. Patient reports a history of FL however he denies stents or CABG. Initial EKG shows rate of 81 with a rhythm of bigeminy at 2-1 with multiple PVCs. Patient appears to have mild ST depression in his lateral leads of V5, V6 on the [place] beats. Patient was mildly diaphoretic on the initial evaluation emergency Department states that the pain was radiating to his left upper extremity. Patient had a mildly elevated troponin at 0.04. He was started on heparin for likely nSTEMI.
--- NOTE | 2017-11-12 03:09 | Internal Med History&Physical ---
<Ashley Chance - Last Filed: 11/12/17 05:43> Date of Encounter: 11/12/17 Time of Encounter: 03:09 Assessment and Plan (1) NSTEMI (non-ST elevated myocardial infarction) Current visit: Yes Status: Acute - Received ASA in ED - Heparin gtt started in ED - No previous h/o GA - Continue home dose atorvastatin - Hold lisinopril d/t low blood pressure - Continue carvedilol with parameters (don't give if SBP < 110 and/or pulse < 70 ) - Trend troponins x 2 - Hold off on repeating echo, consider limited echo if troponin remains positive or trends up - Check magnesium level, replace if needed - Cardiology consulted - Repeat EKG tomorrow (2) Congestive heart failure Current visit: Yes Status: Acute Last echocardiogram 07/19/17 showed: LVEF 30%, severely dilated LV, severe global LV systolic dysfunction, moderate LV diastolic dysfunction, severe LA dilation, grossly dilated RV with normal appearing function. Doesn't appear to be in acute exacerbation. Lungs clear, cardiomegaly seen, grossly normal CXR given imaging technique and body habitus of pt. He is a pt of Dr. See. - Hold off on repeat echo, consider limited echo if troponin remains positive or trends upward - Hold Lasix and lisinopril due to low blood pressure - Cardiology consulted Qualifiers: Qualified Code(s): I50.23 - Acute on chronic systolic (congestive) heart failure (3) COPD (chronic obstructive pulmonary disease) Current visit: No Status: Chronic Doesn't appear to be in acute exacerbation--no increased SOB, no increase or change in sputum production. - Continue home meds Qualifiers: COPD type: unspecified COPD Qualified Code(s): J44.9 - Chronic obstructive pulmonary disease, unspecified (4) DVT prophylaxis Current visit: Yes Status: Acute Currently receiving heparin gtt. Internal Medicine - H&P: HPI Chief complaint: chest pain History of present illness: Mr. Gomez is a 62 year old male presenting to ED for chest pain. 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 Chest pain was located just left of sternum, lasted 3 to 4 minutes, didn't radiate, and was described as dull, but became sharp for short period before becoming dull again. Left-sided mid-axillary pain was also present with onset, pt says this pain was exactly like the chest pain. Denies anything aggravating or relieving his chest pain, it went away on its own. Associated symptoms positive for dizziness, diaphoresis, nausea, blurred vision , and sense of being disoriented. Admits feeling short of breath after what sounds like a routine amount of exertion required by his job, this shortness of breath occurred just before his chest pain. Pt states he doesn't normally experience shortness of breath with exertion. Pt's PMH includes Afib, CHF, HTN, and COPD; he has a pacemaker/AICD he states was placed in 2004 for his h/o CHF. At time of my exam, symptoms described above had resolved. In the emergency department, EKG was obtained and not significantly changed from previous 07/2017, but shows PVCs and some mild ST depression in V5 and V6. CXR in ED shows bibasilar hazy opacity of lungs, mildly enlarged heart, and AICD in left chest. Labs notable for troponin 0.04, otherwise overall unremarkable. Pt received aspirin and was started on heparin gtt. Vital signs stable while in ED. He is on 3L NC to improve SpO2 which was in the low 90's. Cardiology was contacted by ED and cardiology did not recommend further medical management at that time. Pt admitted for NSTEMI. Past Med Surg Social Fam HX - Past Medical History Medical history: atrial fibrillation, CHF, COPD, hypertension Psychiatric history: no psych history - Past Surgical History Surgical History: AICD - Social History Smoking Status: Never smoker Smokeless Tobacco Status: No Alcohol use: none Drug use: none Internal Medicine - H&P: Meds Albuterol Sulfate [Albuterol Inhaler] 1 - 2 puff IH Q4HR PRN 08/16/15 [History] Fluticasone Propionate Nasal [Flonase] 50 mcg NS DAILY 08/16/15 [History] Lisinopril [Zestril] 10 mg PO DAILY 08/16/15 [History] Fluticasone/Salmeterol [Advair Hfa 115-21 Mcg Inhaler] 1 puff IH BID 07/18/17 [ History] Montelukast [Singulair] 10 mg PO DAILY 07/18/17 [History] Atorvastatin [Lipitor] 40 mg PO DAILY #30 tablet 07/21/17 [Rx] Carvedilol [Coreg] 12.5 mg PO BIDWM #30 tablet 07/21/17 [Rx] Furosemide [Lasix] 20 mg PO BID #60 tablet 07/21/17 [Rx] 3 Allergy/AdvReac Type Severity Reaction Status Date / Time penicillin V Allergy Mild REDNESS Verified 09/17/17 12:04 HIVES COMA 3 DAYS All Systems PM: A 10-system review of systems was performed and is negative for pertinent findings except as documented above in the HPI. - Constitutional Constitutional: no chills, no fever(s) - EENT Eyes: blurry vision (during chest pain, resolved) Additional comments: No neck or jaw pain - Cardiovascular Cardiovascular ROS IM: chest pain, diaphoresis, dyspnea, edema, lightheadedness , no orthopnea, no paroxysmal nocturnal dyspnea - Respiratory Respiratory: cough (dry), dyspnea, no pain on inspiration, no excessive phlegm production - Gastrointestinal Gastrointestinal: nausea, no abdominal pain, no vomiting - Neurological Neurological ROS: dizziness, paresthesias (LUE), no confusion - Constitutional Vitals: Temp Pulse Resp BP Pulse Ox 97.7 F 76 16 100/71 92 11/12/17 02:27 11/12/17 02:27 11/12/17 02:27 11/12/17 02:27 11/12/17 02:27 General appearance: Present: cooperative, A&O X 3, pleasant, no acute distress, answers questions appropriately - Head Head exam: Present: atraumatic, normocephalic - Eye Eye exam: Present: EOMI, normal appearance - Neck Neck exam general surgery: Present: full ROM, supple - Respiratory Respiratory exam: Present: CTAB. Absent: accessory muscle use, chest wall tenderness, rales, respiratory distress - Cardiovascular Cardiovascular exam: Present: distant heart sounds, RRR (by radial artery palpation) - GI/Abdominal GI/Abdominal exam: Present: normal bowel sounds, soft. Absent: tenderness - Extremities Exam Extremities exam: Present: radial pulses palpable and symmetrical Additional comments: Bilateral non-pitting LE edema - Back Exam Back exam: Present: normal inspection - Neurological Exam Neurological exam: Present: alert, CN II-XII intact, oriented X3, no focal deficits Internal Med - H&P Results - Labs CBC & Chem 7: 11/12/17 00:48 11/12/17 00:48 <Vinayak Cuevas - Last Filed: 11/12/17 06:36> Date of Encounter: 11/12/17 Time of Encounter: 05:50 Past Med Surg Social Fam HX - Past Medical History Attestation: Yes The following information was validated with the patient. Source: patient, old records reviewed - Additional Family History Additional family history: + FH CAD/CHF - Constitutional Constitutional: no chills, no fever(s) - EENT Eyes: no change in vision Ears: no ear pain, no tinnitus Nose, mouth and throat: no nasal congestion, no sinus pressure, no sore throat - Cardiovascular Cardiovascular ROS IM: chest pain, diaphoresis, dyspnea, edema, no syncope - Respiratory Respiratory: cough, no hemoptysis, no chest congestion, no excessive phlegm production, no change in phlegm color - Gastrointestinal Gastrointestinal: no abdominal pain, no diarrhea, no hematemesis, no hematochezia, no melena, no vomiting - Genitourinary Genitourinary ROS male: no dysuria, no flank pain, no hematuria - Musculoskeletal Musculoskeletal ROS IM: no arthralgias, no back pain - Integumentary Integumentary IM: no rash, no jaundice - Neurological Neurological ROS: no focal weakness, no frequent falls, no headache(s), no weakness - Psychiatric Psychiatric: no anxiety, no depression - Endocrine Endocrine IM: no polydipsia, no polyuria - Hematologic/Lymphatic Hematologic/Lymphatic: no easy bruising, no lymphadenopathy - Allergic/Immunologic Allergic/Immunologic: no wheezing, no GI upset with certain foods - Constitutional Vitals: Temp Pulse Resp BP Pulse Ox 97.8 F 67 16 99/64 92 11/12/17 05:46 11/12/17 05:46 11/12/17 05:46 11/12/17 05:46 11/12/17 02:27 General appearance: Present: cooperative, A&O X 3, pleasant, no acute distress - Eye Eye exam: Present: PERRL. Absent: scleral icterus - ENT ENT exam: Present: mucous membranes dry, normal exam - Neck Neck exam general surgery: Present: full ROM, supple. Absent: lymphadenopathy, tenderness - Respiratory Respiratory exam: Present: CTAB. Absent: chest wall tenderness, rales, respiratory distress, rhonchi, wheezes - Cardiovascular Cardiovascular exam: Present: distant heart sounds, RRR (bradycardic w HR 50's.) , +S1, +S2. Absent: diastolic murmur, systolic murmur - GI/Abdominal GI/Abdominal exam: Present: normal bowel sounds, soft. Absent: hepatomegaly, splenomegaly - Extremities Exam Extremities exam: Present: full ROM, normal capillary refill, pedal edema (1+), warm, radial pulses palpable and symmetrical. Absent: calf tenderness, joint swelling - Back Exam Back exam: Absent: CVA tenderness (L), CVA tenderness (R) - Neurological Exam Neurological exam: Present: alert, CN II-XII intact, oriented X3, no focal deficits - Psychiatric Psychiatric exam: Present: normal affect, normal mood - Skin Skin exam: Present: dry, warm. Absent: rash Internal Med - H&P Results - Labs CBC & Chem 7: 11/12/17 00:48 11/12/17 00:48 - EKG Data -: EKG Interpreted by Myself - EKG Data Prior EKG available for review: yes When compared to previous EKG: there are significant changes EKG comments: 11/12/17 06:28 sinus rhythm with bigeminy - Diagnostic Studies Chest x-ray Status: image reviewed by me (negative) - Attending Attestation I discussed the [place], PMH, ROS, lab data, and exam findings with Dr. Schaefer. I then saw and examined patient independently as well. Patient currently is chest pain free. He has a history of cardiomyopathy which appears to be non- ischemic per history. He reports [facility] in 2004 with clean coronaries. He has an AICD/Pacer. He had had AICD discharge in the past twice, but nothing recently. He noted chest pain with exertion last night at work. He was also diaphoretic , nauseated, and dizzy. Once his chest pain resolved, his other symptoms resolved as well. He denies any fevers, productive cough, GERD, or any other GI upset. Given his symptoms and cardiac history, he will remain npo, on heparin gtt, and will be seen by cardiology in consultation. Other than my comments above and noted exam findings, I agree with Dr. Schaefer' s assessment and plan.
[2017-11-12] MEDS ORDERED: Naloxone 0.4 MG/ML INJ IVP PRN (03:41)
[2017-11-12] MEDS: Fluticasone Propionate Nasal 50 MCG/SPRAY BOTTLE NS SCH (07:44)
[2017-11-12] MEDS: Budesonide/Formoterol 80/4.5 MDI IH SCH ×2 (08:29→19:53)
--- NOTE | 2017-11-12 08:44 | Internal Med Progress Note ---
<Chinmay Burkett - Last Filed: 11/12/17 15:41> Date of Encounter: 11/12/17 Time of Encounter: 08:41 - Assessment and plan (1) NSTEMI (non-ST elevated myocardial infarction) Current Visit: Yes Status: Acute Assessment and plan: Received aspirin in the emergency department. Heparin drip was started. No previous history of IA. - Continue home dose atorvastatin; hold lisinopril d/t low blood pressure - Continue carvedilol with parameters (don't give if SBP < 110 and/or pulse < 70 ) - Trend troponins x 2 - Hold off on repeating echo, consider limited echo if troponin remains positive or trends up - Check magnesium level, replace if needed -Repeat troponin: 0.04. (2) COPD (chronic obstructive pulmonary disease) Current Visit: No Status: Chronic Assessment and plan: Doesn't appear to be in acute exacerbation--no increased SOB, no increase or change in sputum production. -Albuterol inhaler 2 puffs inhaled every 4 when necessary -Singulair 10 mg by mouth daily Qualifiers: COPD type: unspecified COPD Qualified Code(s): J44.9 - Chronic obstructive pulmonary disease, unspecified (3) DVT prophylaxis Current Visit: Yes Status: Acute Assessment and plan: Patient is currently on heparin drip (4) Heart failure Current Visit: Yes Status: Acute Assessment and plan: Last echocardiogram 07/19/17 showed: LVEF 30%, severely dilated LV, severe global LV systolic dysfunction, moderate LV diastolic dysfunction, severe LA dilation, grossly dilated RV with normal appearing function. Doesn't appear to be in acute exacerbation. Lungs clear, cardiomegaly seen, grossly normal CXR given imaging technique and body habitus of pt. He is a pt of Dr. See. - Hold off on repeat echo, consider limited echo if troponin remains positive or trends upward - Hold Lasix and lisinopril due to low blood pressure - Cardiology consulted Qualifiers: Qualified Code(s): I50.9 - Heart failure, unspecified - Subjective Interval history: Patient is a 62-year-old male with a past medical history of Afib, CHF, HTN, and COPD; he has a pacemaker/AICD he states was placed in 2004 for his h/o CHF who presented to [facility] emergency department on 11/12/16 with a chief complaint of chest pain. Patient stated that he was working a night when he had sudden feeling of no strength in his left arm accompanied by numbness and tingling. Pain was located to the left of the sternum, lasted 3-4 minutes, did not radiate , started dull, became sharp for short period. Pain went away on its own. Denied having any exacerbating or relieving factors. He admitted having dizziness, diaphoresis, nausea, blurred vision, and disorientation. Upon arrival, EKG was obtained. No significant changes. PVCs and some mild ST depression were found in leads V5 and V6. Chest x-ray demonstrated bibasilar hazy opacities of the lungs. Troponin was 0.04. Patient received aspirin and was started on heparin drip. Vital signs were stable. Was given 3 L of oxygen via nasal cannula to improve his O2 saturation. Cardiology was consulted. Patient was admitted for an STEMI. Seen and examined at bedside this morning. States that he feels much better. denies any SOB or CP. Currently on O2 via NC. No complaints at this time. - Constitutional Vitals: Temp Pulse Resp BP Pulse Ox 98.1 F 68 16 96/70 96 11/12/17 07:20 11/12/17 07:20 11/12/17 08:30 11/12/17 07:20 11/12/17 08:30 General appearance: Present: cooperative, A&O X 3, pleasant, no acute distress - Head Head exam: Present: atraumatic, normocephalic - Eye Eye exam: Present: PERRL, conjuntiva pink, sclera anicteric Pupils: Present: PERRL - Neck Neck exam general surgery: Present: supple, trachea midline. Absent: lymphadenopathy - Respiratory Respiratory exam: Present: CTAB. Absent: accessory muscle use, rales, rhonchi, wheezes - Cardiovascular Cardiovascular exam: Present: RRR, +S1, +S2. Absent: diastolic murmur, gallop, rubs, systolic murmur - GI/Abdominal GI/Abdominal exam: Present: normal bowel sounds, soft, no peritoneal signs. Absent: distended, tenderness - Extremities Exam Extremities exam: Present: warm, radial pulses palpable and symmetrical. Absent : calf tenderness, cyanotic, pedal edema - Neurological Exam Neurological exam: Present: CN II-XII intact, oriented X3, no focal deficits. Absent: pronater drift, facial droop, speech deficit - Skin Skin exam: Present: dry, intact Internal Medicine: Result - Labs CBC & Chem 7: 11/12/17 00:48 11/12/17 00:48 Labs: Cardiac Enzymes 11/12/17 Range/Units 07:15 Troponin I 0.04 H* (< 0.04) ng/mL - ABG Interpretation ABG results: PT/INR, D-dimer PT 11.1 Seconds (9.4-12.1) 11/12/17 00:48 - VTE Reasons for not Prescribing Prophylaxis: Not indicated-Anticoagulated or INR therapeutic Consult Discharge Plan - Plan Referrals: Virginie Everett MD [Primary Care Provider] - 11/24/17 9:00 am <Mick Candelaria - Last Filed: 11/12/17 18:56> Date of Encounter: 11/12/17 - Constitutional Vitals: Temp Pulse Resp BP Pulse Ox 97.8 F 72 18 114/78 99 11/12/17 16:42 11/12/17 16:42 11/12/17 16:42 11/12/17 16:42 11/12/17 16:42 Internal Medicine: Result - Labs CBC & Chem 7: 11/12/17 00:48 11/12/17 00:48 Labs: Cardiac Enzymes 11/12/17 11/12/17 Range/Units 07:15 13:42 Troponin I 0.04 H* 0.03 (< 0.04) ng/mL - ABG Interpretation ABG results: PT/INR, D-dimer PT 11.1 Seconds (9.4-12.1) 11/12/17 00:48 - Impressions Impressions Echocardiogram Limited Views 11/12/17 09:14 Impressions: LVEF 30%. Severely dilated left ventricle. Severe global left ventricular systolic dysfunction. No definite LV thrombus identified, but swirling of contrast noted in the LV apex. Left Ventricular Wall Motion: Rest Echo Findings The apex, apical inferior, mid inferior, basal inferior, apical anterior, mid anterior, basal anterior, apical septal, mid inferior septal, basal inferior septal, apical lateral, mid anterior lateral, basal anterior lateral, mid anterior septal, mid inferior lateral, basal anterior septal and basal inferior lateral pérez were hypokinetic. Findings: Study Quality * Technically adequate exam. ECG Findings * Normal sinus rhythm. Left Ventricle * LVEF 30%. * Severely dilated left ventricle. * Severe global left ventricular systolic dysfunction. * No definite LV thrombus identified, but swirling of contrast noted in the LV apex. - Attending Attestation I examined this patient and my medical decision-making was reviewed with the Resident Physician. I agree with the documented findings, disposition and treatment plan as described except to the extent set forth below.
--- NOTE | 2017-11-12 09:14 | Cardiology Consult Note ---
<Magdalena Birmingham Gareth - Last Filed: 11/12/17 11:21> Date of Encounter: 11/12/17 Time of Encounter: 08:30 Assessment and Plan (1) Elevated troponin Current Visit: Yes Status: Acute Mild adynamic troponin elevation--0.[address] changes on ECG. Presents with atypical/typical chest pain symptoms. Hx of NICMP, last ischemic evaluation in 2004. Seen by Dr. Gonzales last week who recommended stress due to chest pain and increased episodes of ventricular high rates on device check. Recommend LHC with possible PCI; alternatives, risks, and benefits discussed. He is agreeable to proceed. Discussed and reviewed with Dr. Lenny Figueroa, who agrees. Continue heparin gtt and statin. Will start daily asa. Will resume BB at decreased dose due to marginal BP. Check echocardiogram. Further recommendations to follow. (2) Non-ischemic cardiomyopathy Current Visit: Yes Status: Acute Hx of NICMP, dx in 2004. Hx of ICD in 2007 with gen change in 2013. (3) NSVT (nonsustained ventricular tachycardia) Current Visit: Yes Status: Acute Hx of NSVT. Has been on sotalol in the past, however patient could not tolerate and was discontinued. Frequent episodes of ventricular high rates as noted on recent device check 09/24. Will resume betablocker at decreased dose due to marginal BP. Discussion w patient/family: The assessment and plan as outlined above was discussed with the patient and/or family members who expressed understanding and agreement. All questions were answered. Thank you for involving us in the care of your patient. Please call with any questions. The patient will be discussed and reviewed with Dr. Lenny Figueroa; changes to be made accordingly. History of Present Illness Consult date: 11/12/16 Requesting physician: Vinayak Cuevas Consult reason: Elevated troponin Chief complaint: Chest pain History of present illness: Mr. Gomez is a 62 year old male with complex PMHx including NICM (dx 2004) s /p ICD, NSVT (unable to tolerate sotalol), HTN, COPD, and HLD who presented to the ED after an episode of chest discomfort at work. He describes chest discomfort as left-sided aching with associated nausea, diaphoresis, and bilateral arm heaviness. He then went to the ED for further evaluation. He notes similar, "mild", episodes over the past several weeks, typically occur 2- 3x/week. Cardiology consulted for elevated troponin 0.04x2. Of note, patient recently saw Dr. Gonzales as outpatient, stress was ordered due to frequent ventricular high rates as noted on device check and chest pain. Prior CV testin: dual chamber ICD implant 05/2014: ICD gen change TTE 07/19/17: LVEF 30%, severely dilated LV, severe global systolic dysfunction, moderate diastolic dysfunction, no significant valvular dysfunction Past Med Surg Social Fam HX - Past Medical History Attestation: Yes The following information was validated with the patient. Source: patient Medical history: cardiomyopathy, CHF, COPD, hyperlipidemia, hypertension Psychiatric history: no psych history - Past Surgical History Surgical History: AICD - Social History Smoking Status: Never smoker Smokeless Tobacco Status: No Alcohol use: none Drug use: none Medications and Allergies Albuterol Sulfate [Albuterol Inhaler] 1 - 2 puff IH Q4HR PRN 08/16/15 [History] Fluticasone Propionate Nasal [Flonase] 50 mcg NS DAILY 08/16/15 [History] Lisinopril [Zestril] 10 mg PO DAILY 08/16/15 [History] Montelukast [Singulair] 10 mg PO DAILY 07/18/17 [History] Atorvastatin [Lipitor] 40 mg PO DAILY #30 tablet 07/21/17 [Rx] Furosemide [Lasix] 20 mg PO BID #60 tablet 07/21/17 [Rx] Aspirin [Lo-Dose Aspirin EC] 81 mg PO DAILY 11/12/17 [History] Carvedilol 3.125 mg PO BID 11/12/17 [History] 3 Allergy/AdvReac Type Severity Reaction Status Date / Time penicillin V Allergy Mild REDNESS Verified 09/17/17 12:04 HIVES COMA 3 DAYS All Systems Review: The remainder of the systems were reviewed and are negative - Cardiovascular Cardiovascular: as per HPI Physical Examination Vital Signs, Last 4 Hours Temp Pulse Resp BP Pulse Ox 11/12/17 08:30 16 96 11/12/17 07:20 98.1 F 68 15 96/70 96 11/12/17 05:46 97.8 F 67 16 99/64 General: Conversant, No Apparent Distress HEENT: Atraumatic, Normocephaly, Mucus Membranes Moist Cardiac: Reg Rate and Rhythm, Normal S1 and S2 Lungs: Normal Breath Sounds Neuro: Alert and responsive Abdomen: Other (large, obese) Skin: No rashes noted on visualized skin Musculoskeletal: No Chest Wall Tenderness Extremities: Other (mild BLE edema) Results 11/12/17 00:48 11/12/17 00:48 Lab Results 11/12/17 11/12/17 11/12/17 07:15 07:15 07:15 APTT 48.3 H D Magnesium 2.1 Troponin I 0.04 H* Active Medications Albuterol Sulfate (Albuterol Inhaler) 2 puff IH Q4HR PRN PRN Reason: Shortness Of Breath Stop: 05/14/18 03:50 Atorvastatin Calcium (Lipitor) 40 mg PO DAILY [facility] Stop: 05/14/18 09:01 Budesonide/Formoterol Fumarate (Symbicort) 1 puff IH BIDR ABBE Stop: 05/14/18 10:01 Last Admin: 11/12/17 08:29 Dose: 1 puff Fluticasone Propionate (Flonase) 50 mcg NS DAILY ABBE PRN Reason: Protocol Stop: 05/14/18 09:01 Last Admin: 11/12/17 07:44 Dose: Not Given Heparin Sodium (Porcine) (Heparin) 4,000 unit IVP Q6HR PRN PRN Reason: SEE COMMENTS Stop: 05/14/18 01:29 Heparin Sodium (Porcine) (Heparin) 2,000 unit IVP Q6H PRN PRN Reason: SEE COMMENTS Stop: 05/14/18 01:29 Heparin Sodium/Dextrose (Heparin 25,000 Unit/500 Ml D5w) 25,000 unit in 500 mls @ 20.003 mls/hr IVC .Q24H ABBE; 6.3 UNIT/KG/HR PRN Reason: Protocol Stop: 05/14/18 01:31 Last Admin: 11/12/17 01:36 Dose: 6.3 unit/kg/hr, 20.003 mls/hr Montelukast Sodium (Singulair) 10 mg PO DAILY ABBE Stop: 05/14/18 09:01 Last Admin: 11/12/17 07:44 Dose: Not Given Naloxone HCl (Narcan) 0.4 mg IVP Q2MIN PRN PRN Reason: SEE COMMENTS Stop: 05/14/18 03:42 - Imaging and Cardiology Echo: pending, report reviewed Other Results: 12 hour tele: avg HR=73 SR. - EKG Interpretation EKG results cardiology: personally reviewed Consult Discharge Plan - Plan Referrals: Virginie Everett MD [Primary Care Provider] - 11/24/17 9:00 am <FigueroaLenny bates - Last Filed: 11/12/17 14:54> Date of Encounter: 11/12/17 - Attending Attestation I have personally performed a face to face evaluation on this patient. I have reviewed and agree with the care plan. History and Exam by me shows: Known CM. Frequent NSVT. Have recommended left heart cath. Assessment and Plan Discussion w patient/family: The assessment and plan as outlined above was discussed with the patient and/or family members who expressed understanding and agreement. All questions were answered. Thank you for involving us in the care of your patient. Please call with any questions. History of Present Illness History of present illness: Mr. Gomez is a 62 year old male All Systems Review: The remainder of the systems were reviewed and are negative Physical Examination Vital Signs, Last 4 Hours Temp Resp BP 11/12/17 11:58 98 F 16 103/70 Results 11/12/17 00:48 11/12/17 00:48 Lab Results 11/12/17 11/12/17 11/12/17 07:15 07:15 07:15 APTT 48.3 H D Magnesium 2.1 Troponin I 0.04 H*
[2017-11-12] MEDS ORDERED: Perflutren Lipid Microsphere 1.3 ML in 0.9 % Sodium Chloride 8.7 ML IVP ONE (10:48)
[2017-11-12] MEDS: Aspirin Enteric Coated 81 MG Tablet PO SCH (12:00)
[2017-11-12] MEDS ORDERED: 0.9 % Sodium Chloride 1,000 ML ONE ×2 (12:15→12:49)
[2017-11-12] MEDS ORDERED: Heparin 1,000 UNITS/500 mL 500 ML ONE (12:15)
[2017-11-12] MEDS ORDERED: *HR* Heparin 10,000 UNIT/10 ML VIAL ONE (12:16)
[2017-11-12] MEDS ORDERED: Nitroglycerin 1,000 MCG/10 ML VIAL IV ONE (12:16)
[2017-11-12] MEDS ORDERED: ISOVUE-370 200 ML INFUS..BTL IV ONE (12:16)
[2017-11-12] MEDS ORDERED: *HR* FentaNYL (PF) 100 MCG/2 ML VIAL ONE (12:49)
[2017-11-12] MEDS ORDERED: *HR* Midazolam HCl 2 MG/2 ML VIAL ONE (12:49)
--- NOTE | 2017-11-12 12:55 | Pre-Sedation Evaluation ---
Pre-sedation evaluation - Pre-sedation checklist Date of procedure: 11/12/17 Procedure: C Recent Vitals: Last Vital Signs Temp 98 F 11/12/17 11:58 Pulse 68 11/12/17 07:20 Resp 16 11/12/17 11:58 BP 103/70 11/12/17 11:58 Pulse Ox 96 11/12/17 08:30 H&P (including ROS) documented in medical record: Yes Previous reaction to sedatives/anesthetics: No Dietary Status: NPO after Midnight Dentition: dentures removed ASA Classification *see protocol: CLASS II-Mild systemic disease Plan of Care: Pt appropriate candidate for procedure/moderate/conscious sedation
--- NOTE | 2017-11-12 13:33 | Invasive Diagnostic Lab Proc ---
Name: Ector Gomez Date of Study: 11/12/2017 Date: 1955 Ht: 72.0in Medical Record#: [id number] Age: 62 Wt: 348.33lb Gender: Male BSA: 2.7 Order #: [id number] BMI: 47.18 Physicians Procedure Physician: Anette Loza MD Referring MD: Referring MD: Staff Name Position Time In Shalom Lawrence RN Monitor 12:49 PM Jose Whittakera RT (R) Scrub 12:49 PM Archana Pastrana RN Sales Store Checker 12:50 PM Kian Mast RN Sales Store Checker 12:50 PM Indications Indication Non-Stemi Procedures Performed Procedure L HRT ARTERY/VENTRICLE ANGIO Pre-Procedure Checklist Informed consent is complete signed and on chart. H&P is on chart. ID band is on and ID verified with patient. Patient NPO for procedure The procedure was described for the patient and questions were answered. Blood Pressure: 103/70 ECG is on chart. Rhythm: NSR Plan of Care Patient will tolerate the procedure without complications. Adequate level of comfort will be maintained. Hemodynamics will remain stable Patient will recover from procedure without complications. Respiratory function will be maintained. Cardiac rhythm will remain stable. Patient temperature will be maintained. Patient and/or family have verbalized understanding of the procedure. Patient Education Chief Complaint/Reason for Test: Cardiac Cath Developmental Category: Adult (18-64 years) Developmentally Appropriate for Age: Yes Learning Barriers: None Education Needs: Procedure Education Method: Verbal Information Taught: Cardiac Cath Educational Evaluation: Able to repeat information Intravenous Access Time IV Size Location DC'd Fluid/Drip Rate Units RN 12:35 PM 18g 1 09/10" Patent On Arrival Lt Antecubital 0.9NaCl 25 ml/hr Archana Pastrana RN Allergies penicillin V Vital Signs Time BP (mmHg) HR (bpm) O2 Sat. RR (bpm) LOC 12:36 PM 103 / 70 68 96 % 16 5 = Fully awake and oriented or at pre-proc level 12:51 PM / % 5 = Fully awake and oriented or at pre-proc level 12:50 PM 119 / 79 71 97 % 12:55 PM 121 / 74 58 98 % 20 01:00 PM 113 / 74 57 99 % 41 01:05 PM 105 / 73 70 95 % 21 01:10 PM 117 / 70 60 94 % 25 01:15 PM 107 / 69 54 95 % 23 01:20 PM 112 / 64 78 95 % 15 Procedural Medications Time Medication Dose Units Method Given By 12:51 PM Oxygen 2 L/min nasal cannula Archana Pastrana RN 12:57 PM Versed 1 mg Intravenous Archana Pastrana RN 12:57 PM Fentanyl 50 mcg Intravenous Archana Pastrana RN 01:02 PM Lidocaine 2% 10 ml Subcutaneous Anette Loza MD ASA Classification: CLASS II- Mild systemic disease (i.e. well-controlled diabetes, hypertension, asthma, cigarette smoking) Yuki Score Preprocedure Postprocedure Activity 2- Moves 4 extremities sustained head lift Activity 2- Moves 4 extremities sustained head lift Circulation 2- SBP +/= 20 points of pre-anesthetic level Circulation 2- SBP +/= 20 points of pre-anesthetic level Consciousness 2- Awake and alert oriented x 3 Consciousness 2- Awake and alert oriented x 3 O2 Saturation 2- Able to maintain O2 satruation of 92% on room air O2 Saturation 2- Able to maintain O2 satruation of 92% on room air Respiratory 2- Able to deep breathe and cough well Respiratory 2- Able to deep breathe and cough well Total Score 10 Total Score 10 Contrast Agent: Isovue Diagnostic Contrast: 45 ml Total Contrast: 45 ml Fluoro Dose: 364 mGy Procedure Log Time Note Enter By 12:38 PM CathStat 12:49 PM Pt arrived to laboratory [facility] 2 at 12:48 [facility] 12:49 PM Lawrence Rausch RN Position: Monitor Time in: 12:49 [facility] 12:49 PM CathStat 12:49 PM Vitals capture started with the following parameters, Patient=Adult, Interval=5 min, Initial Fjwulhbd=546 mmHg, Deflation Rate=5 mmHg, Cuff placed on Right Arm 12:50 PM Tayler Whittaker RT (R) Position: Scrub Time in: 12:49 [facility] 12:50 PM Archana Pastrana RN Position: Sales Store Checker Time in: 12:50 [facility] 12:50 PM Kian Mast RN Position: Sales Store Checker Time in: 12:50 [facility] 12:50 PM HR=71 bpm, IZYQ=422/79 mmhg, SpO2=97.0 %, Comment=seema 12:50 PM Patient charges- Angio tray pack, Navilyst 3mm J, Pulse Oximetry and ACIST tubing and transducer [facility] 12:50 PM Hair removed from procedure site in procedure lab using clippers. Bilateral groin prepped with Chloraprep by Tayler Whittaker (R), then patient was draped. Skin intact. [facility] 12:51 PM Physician arrived 12: [facility] 12:51 PM Meet and greet completed [facility] 12:51 PM Sign in performed according to hospital policy. [facility] 12:51 PM Procedure start 12: [facility] : PM Time: 12:51 Patient comfortable and pain free: Yes [facility] : PM Time: 12:51LOC: 5 = Fully awake and oriented or at pre-proc level [facility] : PM Time: 12:51 Oxygen on at 2 L/min per nasal cannula by Archana Pastrana RN [facility] 12:52 PM Recorded ECG: HR=65 Condition=Condition 1 12:55 PM HR=58 bpm, AYKR=080/74 mmhg, SpO2=98.0 %, Resp=20 B/min, Comment=[email or web address] 12:57 PM Time: 12:57 Versed 1 mg Intravenous Given by Archana Pastrana RN [facility] 12:57 PM Time: 12:57 Fentanyl 50 mcg Intravenous Given by Archana Pastrana RN [facility] 12:57 PM Clinical Presentation: Non-STEMI [facility] 01:00 PM HR=57 bpm, JZNH=145/74 mmhg, SpO2=99.0 %, Resp=41 B/min, Comment=[email or web address] 01:01 PM Pressure channel 1 zeroed. 01:02 PM Time out performed according to hospital policy maribel 01:03 PM Time: 13:02 10 ml Lidocaine 2% to right groin Subcutaneous Given by MD skylar Monroe 01:05 PM HR=70 bpm, KPTQ=793/73 mmhg, SpO2=95.0 %, Resp=21 B/min, Comment=nsr 01:05 PM Micro-Introducer Kit [facility] for sheath [facility] PM Access obtained by percutaneous puncture. 6Fr 10cm Terumo [place] sheath placed in right Femoral artery. [id number] [email or web address] 01:06 PM 5Fr FR 4 catheter inserted over the wire [facility] [email or web address] 01:07 PM Pressure channel 1 zeroed. 01:08 PM RCA angiography performed in multiple views. [email or web address] 01:08 PM Catheter removed [email or web address] 01:08 PM 5Fr FL 4 catheter inserted over the wire [facility] jcallihan 01:09 PM Recorded Pressure: Ao, HR=76, Condition=Condition 1 (Aorta) Ao 87/69/77 01:09 PM LCA angiography performed in multiple views. [email or web address] 01:10 PM HR=60 bpm, APFN=677/70 mmhg, SpO2=94.0 %, Resp=25 B/min, Comment=nsr 01:11 PM Catheter removed [email or web address] 01:11 PM Recorded Pressure: LV, HR=86, Condition=Condition 1 (Left Ventricle) LV 88/21/18 01:12 PM Recorded Pressure: LV, HR=79, Condition=Condition 1 (Left Ventricle) LV 91/13/21 01:12 PM Recorded Pressure: LV, Ao, HR=80, Condition=Condition 1 (Left Ventricle) LV 95/9/20, (Aorta) Ao 95/70/81 01:12 PM 5Fr Pigtail catheter inserted over the wire [facility] [email or web address] 01:12 PM Catheter selectively placed in left ventricle [email or web address] 01:12 PM Pressures measured in LV. [email or web address] 01:13 PM Recorded Pressure: Ao, HR=81, Condition=Condition 1 (Aorta) Ao 104/65/79 01:14 PM [email or web address] 01:14 PM Catheter removed [email or web address] 01:14 PM Wire removed [email or web address] 01:14 PM Bolus angiogram of right Femoral complete: 4 ml/sec for a total of 7 mls [email or web address] 01:14 PM Coronary Dominance: Left [email or web address] 01:15 PM HR=54 bpm, VEKU=245/69 mmhg, SpO2=95.0 %, Resp=23 B/min, Comment=nsr 01:15 PM Procedure completed at 13:15 [email or web address] 01:16 PM What is the NYHA Class? Class 3 [email or web address] 01:16 PM ASA Class CLASS II- Mild systemic disease (i.e. well-controlled diabetes, hypertension, asthma, cigarette smoking) [email or web address] 01:16 PM Did you address RICHAR flow and Dominance? Yes [email or web address] 01:18 PM Sign out completed: Radiation Dose 364 mGy Fluoro Time: 1.8 Isovue 370 - 200ml contrast 45 ml given by Anette Loza MD. Complications: NoneCardiac Rehab Consult needed: NoConfirmed administered medications: Yes [email or web address] 01:19 PM Isovue 370 - 200ml,1 Bottle(s) used. [email or web address] 01:19 PM Arterial sheath pulled, Mynx closure device used and was Successful [id number] S/N. [email or web address] 01:19 PM Estimated Blood Loss: minimal [email or web address] 01:19 PM Post ECG NSR jcallihan 01:19 PM Post Blood Pressure 107/69 [email or web address] 01:20 PM HR=78 bpm, VTFW=693/64 mmhg, SpO2=95.0 %, Resp=15 B/min, Comment=nsr 01:21 PM 13:21 Post Pulses Bilateral DP & PT 2+ [email or web address] 01:21 PM Information taught Cardiac Cath and Mynx jcallihan 01:21 PM Education needs Procedure, Plan of Care, and Responsibilities of Patient in Care [email or web address] 01:21 PM Learning barriers :None [email or web address] 01:21 PM Education Methods Verbal [email or web address] 01:21 PM Education evaluation Able to repeat information [email or web address] 01:21 PM Site status No bleeding/hematoma - Rt Groin as reported by Tayler Whittaker RT (R) at 13:21 [email or web address] 01:21 PM Opsite applied jcallihan 01:22 PM Report given to 2N RN Pt taken to 2N Room #13. 13:22 jcallihan 01:22 PM Plavix, Effient or Brilinta given No [email or web address] 01:22 PM Family remained in room, ROLLER PICKER/Ur Coordinator to talk to patient. [email or web address] 01:22 PM Complications: None [email or web address] 01:23 PM Fluoro Time: 1.8 [email or web address] 01:23 PM Isovue 370 - 200ml contrast 45 ml given by Anette Loza MD. [email or web address] 01:23 PM Radiation Dose 364 mGy [email or web address] 01:23 PM Patient out of room: 13:23 [email or web address] Complications Complication None None Hemodynamics Pressures Site Systolic/A Wave Diastolic/V Wave Mean AO 87 69 77 LV 88 21 18 LV 91 13 21 LV 95 9 20 AO 95 70 81 AO 104 65 79 Post Procedure Information Blood Pressure: 107/69 mmHg Rhythm: NSR Post procedural instructions were given Closure Device Time Device Success/Fail 11/12/2017 1:23:00 PM MynxGrip Successful Site Checks Time Location Status Staff Sheath In? Note 01:21 PM Rt Groin No bleeding/hematoma Tayler Whittaker RT (R) Pulses Time Site Pre-Procedure Post-Procedure Note 11/12/2017 12:36:00 PM Bilateral DP & PT 2+ 1:21:00 PM Bilateral DP & PT 2+ Updated by Lawrence Rausch RN on 11/12/2017 1:27:18 PM electronically signed on 11/12/2017 1:27:42 PM with status of Final
[2017-11-13] MEDS: Heparin 25,000 UNIT/500 ML D5W 25,000 UNIT/500 ML BAG IVC SCH (02:12)
[2017-11-13] MEDS: Budesonide/Formoterol 80/4.5 MDI IH SCH (07:53)
--- NOTE | 2017-11-13 08:27 | Discharge Summary ---
<Chinmay Burkett - Last Filed: 11/13/17 14:07> Date of Encounter: 11/13/17 Time of Encounter: 09:00 - Discharge Diagnosis (1) NSTEMI (non-ST elevated myocardial infarction) Priority: Primary Status: Acute (2) COPD (chronic obstructive pulmonary disease) Priority: Secondary Status: Chronic Qualifiers: COPD type: unspecified COPD Qualified Code(s): J44.9 - Chronic obstructive pulmonary disease, unspecified (3) DVT prophylaxis Priority: Secondary Status: Acute (4) Heart failure Priority: Secondary Status: Acute Qualifiers: Qualified Code(s): I50.9 - Heart failure, unspecified Hospital course: Mr. Gomez is a 62-year-old male with a past medical history of Afib, CHF, HTN, and COPD; he has a pacemaker/AICD he states was placed in 2004 for his h/o CHF who presented to [facility] emergency department on 11/12/16 with a chief complaint of chest pain. Patient stated that he was working a night when he had sudden feeling of no strength in his left arm accompanied by numbness and tingling. Pain was located to the left of the sternum, lasted 3-4 minutes, did not radiate , started dull, became sharp for short period. Pain went away on its own. Denied having any exacerbating or relieving factors. He admitted having dizziness, diaphoresis, nausea, blurred vision, and disorientation. Upon arrival, EKG was obtained. No significant changes. PVCs and some mild ST depression were found in leads V5 and V6. Chest x-ray demonstrated bibasilar hazy opacities of the lungs. Troponin was 0.04. Patient received aspirin and was started on heparin drip. Vital signs were stable. Was given 3 L of oxygen via nasal cannula to improve his O2 saturation. Cardiology was consulted. Patient was admitted for an STEMI. Echocardiogram was performed. It demonstrated an ejection fraction of 30%, severely dilated left ventricle, severe global left ventricular systolic dysfunction. Relatively unchanged compared to previous echo in July. Patient was also taken in for left heart catheterization. Per the catheterization report, patients coronary arteries are angiographically normal. Patient was seen and examined on date of discharge. States that he feels much better since his admission. Denies having any chest pain, shortness of breath, chest pressure, diaphoresis, nausea, vomiting, fever, chills, or cough. - Time Spent with Patient Total time spent providing and/or coordinating discharge services: Greater than 30 minutes (42 minutes) - Discharge Medications Prescriptions: Carvedilol [Coreg] 3.125 mg PO BIDWM 30 Days #60 tablet Home Medications: Albuterol Sulfate [Albuterol Inhaler] 1 - 2 puff IH Q4HR PRN 08/16/15 [History] Fluticasone Propionate Nasal [Flonase] 50 mcg NS DAILY 08/16/15 [History] Montelukast [Singulair] 10 mg PO DAILY 07/18/17 [History] Atorvastatin [Lipitor] 40 mg PO DAILY #30 tablet 07/21/17 [Rx] Furosemide [Lasix] 20 mg PO BID #60 tablet 07/21/17 [Rx] Aspirin [Lo-Dose Aspirin EC] 81 mg PO DAILY 11/12/17 [History] Carvedilol 3.125 mg PO BID 11/12/17 [History] Carvedilol [Coreg] 3.125 mg PO BIDWM 30 Days #60 tablet 11/13/17 [Rx] Allergies/Adverse Reactions: 3 Allergy/AdvReac Type Severity Reaction Status Date / Time penicillin V Allergy Mild REDNESS Verified 09/17/17 12:04 HIVES COMA 3 DAYS Date of admission: 11/12/17 01:55 Primary care physician: Virginie Everett MD Consults: 11/12/17 06:18 Consult to Cardiology [CONS] Routine Comment: Consulting Provider: Cardiology Dawn Reason for Consult: chest pain; + troponin; non-ischemic cardiomyopathy Call Completed: No Discharging clinician: Chinmay Burkett Anticipated date of discharge: 11/13/17 - Constitutional Vitals: Temp Pulse Resp BP Pulse Ox 97.9 F 76 18 105/77 94 11/13/17 07:43 11/13/17 07:43 11/13/17 07:54 11/13/17 06:20 11/13/17 07:54 General appearance: Present: cooperative, A&O X 3, pleasant, no acute distress - Head Head exam: Present: atraumatic, normocephalic - Eye Eye exam: Present: PERRL, conjuntiva pink, sclera anicteric Pupils: Present: PERRL - Neck Neck exam general surgery: Present: supple, trachea midline. Absent: lymphadenopathy - Respiratory Respiratory exam: Present: CTAB. Absent: accessory muscle use, rales, rhonchi, wheezes - Cardiovascular Cardiovascular exam: Present: RRR, +S1, +S2. Absent: diastolic murmur, gallop, rubs, systolic murmur - GI/Abdominal GI/Abdominal exam: Present: normal bowel sounds, soft, no peritoneal signs. Absent: distended, tenderness - Extremities Exam Extremities exam: Present: warm, radial pulses palpable and symmetrical. Absent : calf tenderness, cyanotic, pedal edema - Neurological Exam Neurological exam: Present: CN II-XII intact, oriented X3, no focal deficits. Absent: pronater drift, facial droop, speech deficit - Skin Skin exam: Present: dry, intact - Patient Status Disposition: Home, Self-Care Condition: Fair Overall status at discharge: patient is progressing back to baseline - Discharge Instructions Follow Up With: Virginie Everett MD [Primary Care Provider] - 11/24/17 9:00 am - Diet and Activity Activity: increase activity as tolerated Diet: advance to your usual diet - VTE Reasons for not Prescribing Prophylaxis: Not indicated-Anticoagulated or INR therapeutic Documentation of Mechanical Device: Intermittent pneumatic compression device <TeaganMick Pineda - Last Filed: 11/13/17 14:47> Date of Encounter: 11/13/17 Hospital course: Mr. Gomez is a 62 year old male - Time Spent with Patient Total time spent providing and/or coordinating discharge services: Date of admission: 11/12/17 01:55 Primary care physician: Virginie Everett MD Consults: 11/12/17 06:18 Consult to Cardiology [CONS] Routine Comment: Consulting Provider: Cardiology Dawn Reason for Consult: chest pain; + troponin; non-ischemic cardiomyopathy Call Completed: No - Constitutional Vitals: Temp Pulse Resp BP Pulse Ox 97.7 F 79 15 93/73 95 11/13/17 11:48 11/13/17 11:48 11/13/17 11:48 11/13/17 11:48 11/13/17 11:48 - Attending Attestation I examined this patient and my medical decision-making was reviewed with the Resident Physician. I agree with the documented findings, disposition and treatment plan as described except to the extent set forth below.
[2017-11-13] MEDS: Aspirin Enteric Coated 81 MG Tablet PO SCH (08:48)
[2017-11-13] MEDS: Fluticasone Propionate Nasal 50 MCG/SPRAY BOTTLE NS SCH (08:52)
--- NOTE | 2017-11-13 11:03 | Cardiology Progress Note ---
Date of Encounter: 11/13/17 Time of Encounter: 08:00 Assessment and Plan (1) Non-ischemic cardiomyopathy Current Visit: Yes Status: Acute Hx of NICMP, dx in 2004. Hx of ICD in 2007 with gen change in 2013. LHC demonstrated normal coronary arteries. EF 30%, unchanged from prior. Clinically appears euvolemic upon exam. Increase betablocker to coreg 3.125 BID upon discharge (was on 3.125 mg daily at home). Ideally uptitrate in the outpatient setting if able given NSVT. Hold ACEi for now due to hypotension, consider addition in the outpatient setting if able. CHF teaching reinforced including Na/fluid restriction diet and daily weights. Will coordinate outpatient follow-up. (2) Elevated troponin Current Visit: Yes Status: Acute Mild adynamic troponin elevation--0.[address] changes on ECG. Presents with atypical/typical chest pain symptoms. Hx of NICMP, last ischemic evaluation in 2004. LHC 11/12/17: coronary arteries are angiographically normal. TTE 11/12/17: LVEF 30% severely dilated LV, severe global systolic dysfunction, no definite thrombus seen swirling of contrast noted. (3) NSVT (nonsustained ventricular tachycardia) Current Visit: Yes Status: Acute Hx of NSVT. Has been on sotalol in the past, however patient could not tolerate and was discontinued. Frequent episodes of ventricular high rates as noted on recent device check 09/24--reviewed device check with Dr. Lenny Figueroa. On coreg 3.125 mg daily at home, increase to BID upon discharge. Ideally continue to increase dose in the outpatient setting if BP will tolerate. Discussion w patient/family: The assessment and plan as outlined above was discussed with the patient and/or family members who expressed understanding and agreement. All questions were answered. Thank you for involving us in the care of your patient. Please call with any questions. The patient was discussed and reviewed with Dr. Lenny Figueroa. Cardiology will sign-off, will coordinate outpatient follow-up. Subjective Principal diagnosis: NICMP, NSVT, CP Interval history: Seen and examined. No complaints overnight. No issues with right groin cath site. Objective Vital Signs, Last 4 Hours Temp Pulse Resp Pulse Ox 11/13/17 07:54 18 94 11/13/17 07:43 97.9 F 76 18 93 General: Conversant, No Apparent Distress HEENT: Atraumatic, Normocephaly, Mucus Membranes Moist Neck: No JVD, Normal carotid pulses Cardiac: Reg Rate and Rhythm, Normal S1 and S2, No Murmur Lungs: Normal Breath Sounds Neuro: Alert and responsive, No focal deficits noted Abdomen: Soft, Non-Tender, Other (large, obese) Skin: No rashes noted on visualized skin Musculoskeletal: No Chest Wall Tenderness Extremities: No Clubbing, No Cyanosis, No Edema, Normal Pulses Results 11/12/17 00:48 11/12/17 00:48 Lab Results 11/12/17 13:42 Troponin I 0.03 Active Medications Albuterol Sulfate (Albuterol Inhaler) 2 puff IH Q4HR PRN PRN Reason: Shortness Of Breath Stop: 05/14/18 03:50 Aspirin (Aspirin Ec) 81 mg PO DAILY [facility] Stop: 05/14/18 10:01 Last Admin: 11/13/17 08:48 Dose: 81 mg Atorvastatin Calcium (Lipitor) 40 mg PO DAILY [facility] Stop: 05/14/18 09:01 Last Admin: 11/13/17 08:48 Dose: 40 mg Budesonide/Formoterol Fumarate (Symbicort) 1 puff IH BIDR [facility] Stop: 05/14/18 10:01 Last Admin: 11/13/17 07:53 Dose: 1 puff Carvedilol (Coreg) 3.125 mg PO BIDWM [facility] PRN Reason: Protocol Stop: 05/14/18 17:01 Last Admin: 11/13/17 08:48 Dose: 3.125 mg Fluticasone Propionate (Flonase) 50 mcg NS DAILY [facility] PRN Reason: Protocol Stop: 05/14/18 09:01 Last Admin: 11/13/17 08:52 Dose: 50 mcg Heparin Sodium (Porcine) (Heparin) 4,000 unit IVP Q6HR PRN PRN Reason: SEE COMMENTS Stop: 05/14/18 01:29 Last Admin: 11/12/17 10:58 Dose: 4,000 unit Heparin Sodium (Porcine) (Heparin) 2,000 unit IVP Q6H PRN PRN Reason: SEE COMMENTS Stop: 05/14/18 01:29 Heparin Sodium/Dextrose (Heparin 25,000 Unit/500 Ml D5w) 25,000 unit in 500 mls @ 20.003 mls/hr IVC .Q24H ABBE; 6.3 UNIT/KG/HR PRN Reason: Protocol Stop: 05/14/18 01:31 Last Admin: 11/13/17 02:12 Dose: Not Given Montelukast Sodium (Singulair) 10 mg PO DAILY@1800 ABBE Stop: 05/14/18 09:01 Last Admin: 11/12/17 17:10 Dose: 10 mg Naloxone HCl (Narcan) 0.4 mg IVP Q2MIN PRN PRN Reason: SEE COMMENTS Stop: 05/14/18 03:42 - Imaging and Cardiology Echo: report reviewed Cardiac cath: report reviewed Other Results: 12 hour tele: avg HR=77 SR. Frequent PVCs. - EKG Interpretation EKG results cardiology: personally reviewed - VTE Reasons for not Prescribing Prophylaxis: Not indicated-Anticoagulated or INR therapeutic Documentation of Mechanical Device: Intermittent pneumatic compression device Consult Discharge Plan - Plan Referrals: Virginie Everett MD [Primary Care Provider] - 11/24/17 9:00 am
[2017-11-13 11:54] VITALS: BP 93/73
--- NOTE | 2017-11-13 16:36 | Electrocardiograph Report ---
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
== END 2017-11-13 15:48 | disposition home or self-care (01) ==
LOC: EMEROO 00:39 → 2NNU 00:39
PROVIDERS: ADMIT Pediatrics; ATTEND Internal Medicine

== ENCOUNTER 2018-01-16 18:07 | Observation (INO) ==
[2018-01-16 18:55] LABS: Basophils % 0.3 %; Eosinophils # 0.1 K/mcL (0.0-0.6); Eosinophils % 1.2 %; Hematocrit 44.5 % (37.5-50.1); Hemoglobin 15.7 g/dL (12.9-16.9); Immature Granulocytes % 0.4 % (0-4); Lymphocytes # 1.8 K/mcL (0.6-4.6); Lymphocytes % 19.4 %; Mean Corpuscular HGB Conc 35.3 g/dL (31.6-35.5); Mean Corpuscular Hemoglobin 31.2 pg (28.0-33.3); Mean Corpuscular Volume 88.5 fL (83.0-100.0); Mean Platelet Volume 10.4 fL (9.4-12.4); Monocytes # 0.5 K/mcL (0.0-1.3); Monocytes % 5.2 %; Neutrophils # 6.8 K/mcL (1.6-8.9); Platelet Count 205 K/mcL (140-400); Red Blood Count 5.03 M/mcL (4.19-5.50); Red Cell Distribution Width 13.7 % (11.5-14.5); Segmented Neutrophils % 73.5 %
--- NOTE | 2018-01-16 19:31 | Emergency Department Note ---
Disposition Clinical Impression: Congestive heart failure Qualifiers: Heart failure type: unspecified Heart failure chronicity: acute on chronic Qualified Code(s): I50.9 - Heart failure, unspecified Disposition: Admitted As Inpatient Condition: Fair SOB HPI - General Chief Complaint: ED Shortness of Breath/Dyspnea Stated Complaint: "CAROLANN/Blilat Lower Extremity Swelling/Sent from " Time Seen by Provider: 01/16/18 18:11 Source: patient Mode of arrival: ambulatory Limitations: no limitations Nursing Notes Reviewed: Yes Vital Signs Reviewed: Yes - History of Present Illness 8-year-old male presents emergency Department with concerns of difficulty in breathing worsen over the past 3 weeks. Patient states he had similar symptoms with CHF exacerbation for which he needs admitted to the hospital. Patient denies missing any of his doses of Lasix. Patient states he takes 60 mg once daily. Denies increased ingestion of salt over the past few weeks. Denies eating out 2 different restaurants excessively. Denies recent chest pain or palpitations. Patient states he becomes severely short of breath with minimal exertion at home. He is unable to lay flat. Patient denies recent fever however he does have a cough that is nonproductive. Patient initially went to an urgent care for further evaluation who sent him to the emergency department. Patient follows Dr. Gonzales for cardiology. - Related Data Home Medications Medication Instructions Recorded Confirmed Advair 100-50 Diskus 12/04/17 Aspirin 12/04/17 Coreg 12/04/17 Flonase 12/04/17 Lasix 12/04/17 Lipitor 12/04/17 Lisinopril 12/04/17 Proair Hfa 12/04/17 Previous Rx's Medication Instructions Recorded Albuterol Neb [Proventil Neb] 2.5 mg IH Q4HR #20 vial.neb 12/04/17 Clindamycin HCl [Cleocin HCl] 300 mg PO TID #21 capsule 12/22/17 Allergies Allergy/AdvReac Type Severity Reaction Status Date / Time penicillin V Allergy Mild REDNESS Verified 01/16/18 16:30 HIVES COMA 3 DAYS All systems ED: reviewed and negative except as stated. Review of Systems: As Per HPI Past Medical History - Past Medical History Attestation: Yes The following information was validated with the patient. Source: patient Medical history: Reports: COPD, hypertension, other Surgical history: Reports: AICD Psychiatric history: Reports: no psych history - Social History Smoking Status: Unknown if ever smoked Smokeless Tobacco Status: No Alcohol use: Reports: none Drug use: Reports: none Physical Exam General: Alert and in no acute distress Skin: Warm, dry, intact Head: Normocephalic and atraumatic Neck: Supple, trachea midline and no tenderness Cardiovascular: RRR, no murmur, normal perfusion Respiratory: CTAB, no wheezing, cough, or respiratory distress Musculoskeletal: Normal strength, no tenderness GI: Soft, nontender, nondistended. Bowel sounds present Neuro: A&O to person, place, time and situation. No focal deficits noted on exam Psychiatric: cooperative and appropriate mood and affect. - General Limitations: no limitations General appearance: alert, in no apparent distress Course Vital Signs Temperature 97.4 F L 01/16/18 18:08 Pulse Rate 50 01/16/18 18:08 Respiratory Rate 20 01/16/18 18:08 Blood Pressure 144/80 01/16/18 18:08 O2 Sat by Pulse Oximetry 94 01/16/18 18:08 Temperature 97.4 F L 01/16/18 18:08 Pulse Rate 95 01/16/18 18:20 Respiratory Rate 20 01/16/18 18:20 Blood Pressure 123/80 01/16/18 18:20 O2 Sat by Pulse Oximetry 95 01/16/18 18:20 Oxygen Delivery Oxygen Delivery Room Air Shortness of Breath/Dyspnea - Medical Records Medical records reviewed: Yes I reviewed the patient's medical records. - Lab Data Lab results reviewed: Yes I reviewed the patient's lab results. Result diagrams: 01/16/18 18:20 Lab Results 01/16/18 Range/Units 18:20 WBC 9.2 (4.3-11.1) K/mcL RBC 5.03 (4.19-5.50) M/mcL Hgb 15.7 (12.9-16.9) g/dL Hct 44.5 (37.5-50.1) % MCV 88.5 (83.0-100.0) fL MCH 31.2 (28.0-33.3) pg MCHC 35.3 (31.6-35.5) g/dL RDW 13.7 (11.5-14.5) % Plt Count 205 (140-400) K/mcL MPV 10.4 (9.4-12.4) fL Immature Gran % 0.4 (0-4) % Seg Neutrophils % 73.5 % Lymphocytes % 19.4 % Monocytes % 5.2 % Eosinophils % 1.2 % Basophils % 0.3 % Neutrophils # 6.8 (1.6-8.9) K/mcL Lymphocytes # 1.8 (0.6-4.6) K/mcL Monocytes # 0.5 (0.0-1.3) K/mcL Eosinophils # 0.1 (0.0-0.6) K/mcL Basophils # 0.0 (0.0-0.2) K/mcL - Radiology Data Radiology results reviewed: Yes I reviewed the patient's radiology results. - EKG Data EKG attestation: Yes I reviewed and interpreted this EKG. EKG results narrative: 90 with normal sinus rhythm with multiple PVCs.
[2018-01-16] MEDS ORDERED: Albuterol 2.5 MG/3 ML NEBULIZER IH ONE (19:48)
[2018-01-16] MEDS ORDERED: Benzonatate 100 MG CAPSULE PO STA (19:48)
[2018-01-16 20:10] LABS: BUN/Creatinine Ratio 10 (6-26); Blood Urea Nitrogen 11 mg/dL (8-23); Calcium 9.3 mg/dL (8.6-10.3); Carbon Dioxide 21 mEq/L (23-29); Chloride 109 mEq/L (98-107); Glucose 141 mg/dL (70-105); Osmolality,Calculated 290 (280-300); Potassium 3.8 mEq/L (3.5-5.1); Sodium 139 mEq/L (136-145); Troponin I 0.04 ng/mL (< 0.04); eGFR For African Americans > 60 (> 60); eGFR For Non-African Americans > 60 (> 60)
[2018-01-16] MEDS ORDERED: traMADol 50 MG TABLET PO PRN (23:47)
[2018-01-16] MEDS ORDERED: Acetaminophen 325 MG TABLET PO PRN (23:47)
[2018-01-16] MEDS ORDERED: Naloxone 0.4 MG/ML INJ IVP PRN (23:47)
--- NOTE | 2018-01-17 00:02 | Internal Med History&Physical ---
Date of Encounter: 01/16/18 Time of Encounter: 23:05 Internal Medicine - H&P: HPI Chief complaint: SOB; weight gain Admitted From: Emergency Dept Plans for Post Hospital Care: Home History of present illness: Mr. Gomez is a 62 year old male who presents with a several day history of shortness of breath, orthopnea, paroxysmal nocturnal dyspnea, increased lower extremity edema, and increased abdominal girth. He came to the ER for evaluation and was noted to be in acute CHF. He had a cough which was initially thought to be bronchitis. However, with further history and workup, it appears that he is likely in CHF and does not have any bronchitis as was initially presumed. He denies any fevers, chills, productive mucus with his cough, vomiting, or diarrhea. He denies any chest pain. 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 He does have an implantable AICD. He denies any AICD discharge. Upon my assessment of the patient, patient does appear somewhat short of breath , but he feels better overall. He does have bilateral lower extremity edema and increased abdominal girth. He has been hospitalized twice in the past for CHF, and he improved clinically after aggressive IV diuresis. Past Med Surg Social Fam HX - Past Medical History Attestation: Yes The following information was validated with the patient. Source: patient, old records reviewed Medical history: cardiomyopathy, CHF, COPD, hypertension Psychiatric history: no psych history - Past Surgical History Surgical History: other (heart catherization - no PCI), AICD - Social History Smoking Status: Never smoker Smokeless Tobacco Status: No Alcohol use: none Drug use: none Current living situation: Home, With Family Activity Level: Independent ambulation Recent Out of Country Travel Within the Last 8 Weeks: No - Family History Mother History Unknown: Yes Father Living Status: Still Living Hx Family Cardiac Disorders: Yes (cabg) Hx Family Endocrine Disorder: Yes (dm) Internal Medicine - H&P: Meds Advair 100-50 Diskus 12/04/17 [History] Albuterol Neb [Proventil Neb] 2.5 mg IH Q4HR #20 vial.neb 12/04/17 [Rx] Aspirin 12/04/17 [History] Coreg 12/04/17 [History] Flonase 12/04/17 [History] Lasix 12/04/17 [History] Lipitor 12/04/17 [History] Lisinopril 12/04/17 [History] Proair Hfa 12/04/17 [History] 3 Allergy/AdvReac Type Severity Reaction Status Date / Time penicillin V Allergy Mild REDNESS Verified 01/16/18 16:30 HIVES COMA 3 DAYS - Constitutional Constitutional: weight gain, no chills, no fever(s), no night sweats - EENT Eyes: no blurry vision, no change in vision Ears: no ear pain, no tinnitus Nose, mouth and throat: no nasal congestion, no sinus pressure, no sore throat - Cardiovascular Cardiovascular ROS IM: dyspnea, dyspnea on exertion, edema, orthopnea, paroxysmal nocturnal dyspnea, no chest pain, no diaphoresis, no lightheadedness - Respiratory Respiratory: cough, dyspnea, dyspnea on exertion, no hemoptysis, no wheezing, no pain on inspiration, no chest congestion, no excessive phlegm production, no change in phlegm color, no pain with cough - Gastrointestinal Gastrointestinal: bloating, no abdominal pain, no diarrhea, no hematemesis, no hematochezia, no melena, no nausea, no vomiting - Genitourinary Genitourinary ROS male: no dysuria, no flank pain, no hematuria - Musculoskeletal Musculoskeletal ROS IM: no muscle cramps, no myalgias, no numbness - Integumentary Integumentary IM: no rash, no jaundice - Neurological Neurological ROS: no dizziness, no focal weakness, no frequent falls, no headache(s) - Psychiatric Psychiatric: no anxiety, no depression - Endocrine Endocrine IM: no polydipsia, no polyuria - Hematologic/Lymphatic Hematologic/Lymphatic: no easy bruising, no lymphadenopathy - Allergic/Immunologic Allergic/Immunologic: no wheezing, no GI upset with certain foods - Constitutional Vitals: Temp Pulse Resp BP Pulse Ox 98.3 F 91 16 104/82 92 01/16/18 21:46 01/16/18 21:46 01/16/18 21:46 01/16/18 21:46 01/16/18 21:46 General appearance: Present: cooperative, A&O X 3, pleasant, no acute distress - Head Head exam: Present: atraumatic, normal inspection - Eye Eye exam: Present: EOMI, PERRL. Absent: scleral icterus Pupils: Present: normal accommodation - ENT ENT exam: Present: mucous membranes dry, normal exam - Neck Neck exam general surgery: Present: full ROM, supple. Absent: tenderness, nuchal rigidity, thyromegaly - Respiratory Respiratory exam: Present: rales (both bases). Absent: chest wall tenderness, respiratory distress, rhonchi, wheezes - Cardiovascular Cardiovascular exam: Present: distant heart sounds, RRR, +S1, +S2. Absent: diastolic murmur, JVD (unable to assess ), systolic murmur - GI/Abdominal GI/Abdominal exam: Present: normal bowel sounds, soft. Absent: hepatomegaly, mass, splenomegaly, tenderness Additional comments: bloated; increased girth per patient - Extremities Exam Extremities exam: Present: full ROM, normal capillary refill, pedal edema (3+), warm, radial pulses palpable and symmetrical. Absent: calf tenderness, joint swelling, tenderness - Back Exam Back exam: Present: normal inspection. Absent: CVA tenderness (L), CVA tenderness (R) - Neurological Exam Neurological exam: Present: alert, CN II-XII intact, oriented X3, no focal deficits - Psychiatric Psychiatric exam: Present: normal affect, normal mood - Skin Skin exam: Present: dry, warm. Absent: rash Internal Med - H&P Results - Labs CBC & Chem 7: 01/16/18 18:20 01/16/18 18:20 - EKG Data -: EKG Interpreted by Myself - EKG Data Prior EKG available for review: no EKG comments: 01/17/18 00:06 NSR; PVC's; no acute ischemia - Diagnostic Studies Chest x-ray Status: image reviewed by me (pulmonary edema) - Assessment and plan (1) Congestive heart failure Current Visit: Yes Status: Acute Assessment and plan: 1. Will place on fluid restriciton and start IV diuresis. 2. Monitor daily weight and strict I/O's. 3. Will trend serial troponins. 4. Resume home meds as appropriate once verified and reconciled. 5. Patient would benefit from formal sleep study as I suspect he has FIDEL. Qualifiers: Heart failure type: systolic Heart failure chronicity: acute on chronic Qualified Code(s): I50.23 - Acute on chronic systolic (congestive) heart failure (2) Elevated troponin Current Visit: Yes Status: Acute Assessment and plan: 1. Trend troponins and EKG's. 2. LHC in November revealed normal coronary arteries. 3. Last ECHO in November reviewed -- EF 30-35%. 4. Consult cardiology if clinically indicated. Current troponin leak likely due to CHF. (3) DVT prophylaxis Current Visit: No Status: Acute Assessment and plan: 1. Heparin SQ.
[2018-01-17] MEDS: Furosemide 40 MG/4 ML VIAL IVP SCH ×3 (00:44→19:54)
[2018-01-17] MEDS: *HR* Heparin 5,000 UNIT/ML VIAL SQ SCH ×3 (00:44→17:00)
[2018-01-17 01:07] LABS: Basophils % 0.1 %; Hematocrit 43.8 % (37.5-50.1); Hemoglobin 15.2 g/dL (12.9-16.9); Immature Granulocytes % 0.5 % (0-4); Lymphocytes # 0.6 K/mcL (0.6-4.6); Mean Corpuscular HGB Conc 34.7 g/dL (31.6-35.5); Mean Corpuscular Volume 89.4 fL (83.0-100.0); Mean Platelet Volume 10.5 fL (9.4-12.4); Monocytes # 0.1 K/mcL (0.0-1.3); Monocytes % 1.1 %; Neutrophils # 6.6 K/mcL (1.6-8.9); Platelet Count 186 K/mcL (140-400); Red Cell Distribution Width 13.6 % (11.5-14.5); Segmented Neutrophils % 90.3 %
[2018-01-17 01:13] LABS: INR 1.2; Prothrombin Time 12.5 Seconds (9.4-12.1)
[2018-01-17 01:16] LABS: Activated Partial Thrombo Time 28.3 Seconds (26.0-36.0)
[2018-01-17 01:34] LABS: Alanine Aminotransferase 19 Units/L (7-52); Albumin 3.7 g/dL (3.5-5.7); Albumin/Globulin Ratio 1.4 (1.1-2.2); Alkaline Phosphatase 109 Units/L (34-104); Aspartate Amino Transferase 14 Units/L (13-39); BUN/Creatinine Ratio 12 (6-26); Bilirubin,Total 1.9 mg/dL (0.3-1.0); Blood Urea Nitrogen 13 mg/dL (8-23); Calcium 9.3 mg/dL (8.6-10.3); Carbon Dioxide 23 mEq/L (23-29); Chloride 107 mEq/L (98-107); Globulin 2.6 g/dL (2.4-3.5); Glucose 228 mg/dL (70-105); Magnesium 1.8 mg/dL (1.6-2.6); Osmolality,Calculated 293 (280-300); Potassium 3.8 mEq/L (3.5-5.1); Sodium 138 mEq/L (136-145); Total Protein 6.3 g/dL (6.4-8.9); eGFR For African Americans > 60 (> 60); eGFR For Non-African Americans > 60 (> 60)
--- NOTE | 2018-01-17 15:19 | Internal Med Progress Note ---
Date of Encounter: 01/17/18 Time of Encounter: 15:17 - Assessment and plan (1) Congestive heart failure Current Visit: Yes Status: Acute Assessment and plan: 1. Continue fluid restriciton and start IV diuresis. 2. Monitor daily weight and strict I/O's. 3. serial troponins.-Unchanged-most likely elevated from demand ischemia 4. Resume home meds 5. Patient would benefit from formal sleep study as I suspect he has FIDEL. Qualifiers: Heart failure type: systolic Heart failure chronicity: acute on chronic Qualified Code(s): I50.23 - Acute on chronic systolic (congestive) heart failure (2) Elevated troponin Current Visit: Yes Status: Acute Assessment and plan: Most likely demand ischemia continued to trend troponins which have been adynamic (3) DVT prophylaxis Current Visit: No Status: Acute Assessment and plan: 1. Heparin SQ. - Time Spent With Patient Total time spent is greater than 50% in coordination of care (as documented) at patient's floor/unit and/or counseling patient: - Subjective Interval history: This patient is due to me I did review medical records. Presently patient is denies any chest pain or shortness of breath. He does state he feels much better he has noticed a decrease in swelling to his lower extremities. We will continue to diurese. I reviewed treatment plan with the patient who verbalized understanding. - Constitutional Vitals: Temp Pulse Resp BP Pulse Ox 97.7 F 77 16 99/57 95 01/17/18 11:38 01/17/18 11:38 01/17/18 11:38 01/17/18 11:38 01/17/18 11:38 General appearance: Present: cooperative, A&O X 3, pleasant, no acute distress - Head Head exam: Present: atraumatic, normocephalic - Eye Eye exam: Present: PERRL, conjuntiva pink, sclera anicteric Pupils: Present: PERRL - Neck Neck exam general surgery: Present: supple, trachea midline. Absent: lymphadenopathy - Respiratory Respiratory exam: Present: CTAB. Absent: accessory muscle use, rales, rhonchi, wheezes - Cardiovascular Cardiovascular exam: Present: RRR, +S1, +S2. Absent: diastolic murmur, gallop, rubs, systolic murmur - GI/Abdominal GI/Abdominal exam: Present: normal bowel sounds, soft, no peritoneal signs. Absent: distended, tenderness - Extremities Exam Extremities exam: Present: pedal edema, warm, radial pulses palpable and symmetrical. Absent: calf tenderness, cyanotic - Neurological Exam Neurological exam: Present: CN II-XII intact, oriented X3, no focal deficits. Absent: pronater drift, facial droop, speech deficit - Skin Skin exam: Present: dry, intact Internal Medicine: Result - Labs CBC & Chem 7: 01/17/18 00:49 01/17/18 00:49 Labs: Short CBC 01/17/18 Range/Units 00:49 WBC 7.3 (4.3-11.1) K/mcL Hgb 15.2 (12.9-16.9) g/dL Hct 43.8 (37.5-50.1) % Plt Count 186 (140-400) K/mcL Neutrophils # 6.6 (1.6-8.9) K/mcL BMP 01/17/18 00:49 Sodium 138 Potassium 3.8 Chloride 107 Carbon Dioxide 23 BUN 13 Creatinine 1.13 Glucose 228 H Calcium 9.3 Cardiac Enzymes 01/17/18 01/17/18 01/17/18 Range/Units 00:49 06:40 12:50 Troponin I 0.03 0.03 0.04 H* (< 0.04) ng/mL Liver Function 01/17/18 Range/Units 00:49 Total Bilirubin 1.9 H (0.3-1.0) mg/dL AST 14 (13-39) Units/L ALT 19 (7-52) Units/L Alkaline Phosphatase 109 H (34-104) Units/L Albumin 3.7 (3.5-5.7) g/dL - ABG Interpretation ABG results: PT/INR, D-dimer PT 12.5 Seconds (9.4-12.1) H 01/17/18 00:49 Consult Discharge Plan - Plan Referrals: Virginie Everett MD [Primary Care Provider] -
[2018-01-17] MEDS: Budesonide/Formoterol 80/4.5 MDI IH PRN (19:35)
[2018-01-18 05:03] LABS: Basophils % 0.2 %; Eosinophils # 0.1 K/mcL (0.0-0.6); Eosinophils % 0.5 %; Hemoglobin 14.1 g/dL (12.9-16.9); Immature Granulocytes % 0.5 % (0-4); Lymphocytes # 2.5 K/mcL (0.6-4.6); Lymphocytes % 23.1 %; Mean Corpuscular HGB Conc 33.6 g/dL (31.6-35.5); Mean Corpuscular Hemoglobin 30.2 pg (28.0-33.3); Mean Corpuscular Volume 89.9 fL (83.0-100.0); Mean Platelet Volume 10.3 fL (9.4-12.4); Monocytes # 0.7 K/mcL (0.0-1.3); Monocytes % 6.7 %; Neutrophils # 7.4 K/mcL (1.6-8.9); Platelet Count 197 K/mcL (140-400); Red Blood Count 4.67 M/mcL (4.19-5.50); Red Cell Distribution Width 14.2 % (11.5-14.5)
[2018-01-18 05:23] LABS: BUN/Creatinine Ratio 17 (6-26); Blood Urea Nitrogen 21 mg/dL (8-23); Carbon Dioxide 26 mEq/L (23-29); Chloride 108 mEq/L (98-107); Glucose 175 mg/dL (70-105); Osmolality,Calculated 297 (280-300); Potassium 3.4 mEq/L (3.5-5.1); Sodium 140 mEq/L (136-145); eGFR For African Americans > 60 (> 60); eGFR For Non-African Americans > 60 (> 60)
[2018-01-18] MEDS: *HR* Heparin 5,000 UNIT/ML VIAL SQ SCH ×2 (05:34→18:25)
[2018-01-18] MEDS: Budesonide/Formoterol 80/4.5 MDI IH PRN ×2 (07:55→20:02)
[2018-01-18] MEDS: Aspirin Enteric Coated 81 MG Tablet PO SCH (08:55)
[2018-01-18] MEDS: Loratadine 10 MG TABLET PO SCH (08:56)
[2018-01-18] MEDS: Furosemide 40 MG/4 ML VIAL IVP SCH ×2 (08:56→20:19)
--- NOTE | 2018-01-18 11:09 | Internal Med Progress Note ---
Date of Encounter: 01/18/18 Time of Encounter: 11:03 - Assessment and plan (1) Congestive heart failure Current Visit: Yes Status: Acute Assessment and plan: 1. Continue fluid restriciton -will switch to oral Lasix-closely monitor creatinine 2. Monitor daily weight and strict I/O's. 3. serial troponins.-Unchanged-most likely elevated from demand ischemia 4. Resume home meds 5. Patient apparently is being worked up for FIDEL and will be requiring CPAP however has not received machine and has not finished complete workup 6 continues to require high flow oxygen we will need to wean down to home oxygen at 5 L. Continues to have BiPAP as needed 7 consulting PT and OT-social services analyst for discharge planning Qualifiers: Heart failure type: systolic Heart failure chronicity: acute on chronic Qualified Code(s): I50.23 - Acute on chronic systolic (congestive) heart failure (2) Elevated troponin Current Visit: Yes Status: Acute Assessment and plan: Most likely demand ischemia continued to trend troponins which have been adynamic (3) Constipation Current Visit: Yes Status: Acute Assessment and plan: Patient has not had a bowel movement for 4 days complains of constipation. Abdomen is soft and nontender. Patient placed on Colace as well as MiraLAX. He did have a small bowel movement this morning. We will continue to monitor Qualifiers: Constipation type: unspecified constipation type Qualified Code(s): K59.00 - Constipation, unspecified (4) DVT prophylaxis Current Visit: No Status: Acute Assessment and plan: 1. Heparin SQ. - Time Spent With Patient Total time spent is greater than 50% in coordination of care (as documented) at patient's floor/unit and/or counseling patient: - Subjective Interval history: I did examine this patient at the bedside. Presently denies any chest pain, he has shortness of breath on exertion. He continues to require high flow of oxygen at times BiPAP. We will continue to attempt to wean oxygen back to baseline of 5 L nasal cannula. Swelling lower extremities have improved. I reviewed treatment plan with patient who verbalized understanding and agreement. - Constitutional Vitals: Temp Pulse Resp BP Pulse Ox 97.5 F L 75 18 117/80 96 01/18/18 07:31 01/18/18 07:31 01/18/18 07:55 01/18/18 07:31 01/18/18 07:55 General appearance: Present: cooperative, A&O X 3, pleasant, no acute distress - Head Head exam: Present: atraumatic, normocephalic - Eye Eye exam: Present: PERRL, conjuntiva pink, sclera anicteric Pupils: Present: PERRL - Neck Neck exam general surgery: Present: supple, trachea midline. Absent: lymphadenopathy - Respiratory Respiratory exam: Present: CTAB. Absent: accessory muscle use, rales, rhonchi, wheezes - Cardiovascular Cardiovascular exam: Present: RRR, +S1, +S2. Absent: diastolic murmur, gallop, rubs, systolic murmur - GI/Abdominal GI/Abdominal exam: Present: normal bowel sounds, soft, no peritoneal signs. Absent: distended, tenderness - Extremities Exam Extremities exam: Present: warm, radial pulses palpable and symmetrical. Absent : calf tenderness, cyanotic, pedal edema - Neurological Exam Neurological exam: Present: CN II-XII intact, oriented X3, no focal deficits. Absent: pronater drift, facial droop, speech deficit - Skin Skin exam: Present: dry, intact Internal Medicine: Result - Labs CBC & Chem 7: 01/18/18 04:45 01/18/18 04:45 Labs: Short CBC 01/18/18 Range/Units 04:45 WBC 10.7 (4.3-11.1) K/mcL Hgb 14.1 (12.9-16.9) g/dL Hct 42.0 (37.5-50.1) % Plt Count 197 (140-400) K/mcL Neutrophils # 7.4 (1.6-8.9) K/mcL BMP 01/18/18 04:45 Sodium 140 Potassium 3.4 L Chloride 108 H Carbon Dioxide 26 BUN 21 Creatinine 1.21 Glucose 175 H Calcium 9.0 Cardiac Enzymes 01/17/18 Range/Units 12:50 Troponin I 0.04 H* (< 0.04) ng/mL - ABG Interpretation ABG results: PT/INR, D-dimer PT 12.5 Seconds (9.4-12.1) H 01/17/18 00:49 Consult Discharge Plan - Plan Referrals: Virginie Everett MD [Primary Care Provider] -
--- NOTE | 2018-01-18 11:40 | Internal Med Progress Note ---
Date of Encounter: 01/18/18 Time of Encounter: 11:20 - Assessment and plan (1) Congestive heart failure Current Visit: Yes Status: Acute Assessment and plan: 1. Continue fluid restriciton -will continue with IV Lasix for now 2. Monitor daily weight and strict I/O's. 3. serial troponins. Troponin this a.m. 0.05-most likely demand ischemia 4. Resume home meds 5. He may benefit from a formal sleep study suspect FIDEL Qualifiers: Heart failure type: systolic Heart failure chronicity: acute on chronic Qualified Code(s): I50.23 - Acute on chronic systolic (congestive) heart failure (2) Elevated troponin Current Visit: Yes Status: Acute Assessment and plan: Most likely demand ischemia continued to trend troponins- which have been adynamic (3) DVT prophylaxis Current Visit: No Status: Acute Assessment and plan: 1. Heparin SQ. - Time Spent With Patient Total time spent is greater than 50% in coordination of care (as documented) at patient's floor/unit and/or counseling patient: - Subjective Interval history: I did examine patient at bedside she was up ambulating in the room. He does continue to complain of some exertional dyspnea. Motion is swelling greatly improved. He denies any chest pain. I did review treatment plan with the patient who verbalized understanding and agreement. - Constitutional Vitals: Temp Pulse Resp BP Pulse Ox 97.5 F L 75 18 117/80 96 01/18/18 07:31 01/18/18 07:31 01/18/18 07:55 01/18/18 07:31 01/18/18 07:55 General appearance: Present: cooperative, A&O X 3, pleasant, no acute distress - Head Head exam: Present: atraumatic, normocephalic - Eye Eye exam: Present: PERRL, conjuntiva pink, sclera anicteric Pupils: Present: PERRL - Neck Neck exam general surgery: Present: supple, trachea midline. Absent: lymphadenopathy - Respiratory Respiratory exam: Present: CTAB. Absent: accessory muscle use, rales, rhonchi, wheezes - Cardiovascular Cardiovascular exam: Present: RRR, +S1, +S2. Absent: diastolic murmur, gallop, rubs, systolic murmur - GI/Abdominal GI/Abdominal exam: Present: normal bowel sounds, soft, no peritoneal signs. Absent: distended, tenderness - Extremities Exam Extremities exam: Present: pedal edema, warm, radial pulses palpable and symmetrical. Absent: calf tenderness, cyanotic - Neurological Exam Neurological exam: Present: CN II-XII intact, oriented X3, no focal deficits. Absent: pronater drift, facial droop, speech deficit - Skin Skin exam: Present: dry, intact Internal Medicine: Result - Labs CBC & Chem 7: 01/18/18 04:45 01/18/18 04:45 Labs: Short CBC 01/18/18 Range/Units 04:45 WBC 10.7 (4.3-11.1) K/mcL Hgb 14.1 (12.9-16.9) g/dL Hct 42.0 (37.5-50.1) % Plt Count 197 (140-400) K/mcL Neutrophils # 7.4 (1.6-8.9) K/mcL BMP 01/18/18 04:45 Sodium 140 Potassium 3.4 L Chloride 108 H Carbon Dioxide 26 BUN 21 Creatinine 1.21 Glucose 175 H Calcium 9.0 Cardiac Enzymes 01/17/18 Range/Units 12:50 Troponin I 0.04 H* (< 0.04) ng/mL - ABG Interpretation ABG results: PT/INR, D-dimer PT 12.5 Seconds (9.4-12.1) H 01/17/18 00:49 Consult Discharge Plan - Plan Referrals: Virginie Everett MD [Primary Care Provider] -
--- NOTE | 2018-01-18 13:14 | Electrocardiograph Report ---
[address] [address] Test Date: 2018-01-17 Pat Name: Ector Gomez Department: 113 Room: 3B36 Gender: M L D Rn: : 1955 Requested By: Vinayak Cuevas MD Order Number: [id number] Reading MD: Raulito Brown Measurements Intervals [place] Rate: 87 P: 119 RI: 229 QRS: -3 QRSD: 129 T: 189 QT: 392 QTc: 436 Interpretive Statements ELECTRONIC ATRIAL PACEMAKER LEFT BUNDLE BRANCH BLOCK PVCS Electronically Signed On 01-18-2018 10:07:53 EDT by Raulito Brown
--- NOTE | 2018-01-18 13:14 | Electrocardiograph Report ---
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
[2018-01-19 05:24] LABS: Basophils % 0.4 %; Eosinophils # 0.2 K/mcL (0.0-0.6); Eosinophils % 2.2 %; Hematocrit 42.6 % (37.5-50.1); Hemoglobin 14.7 g/dL (12.9-16.9); Immature Granulocytes % 0.6 % (0-4); Lymphocytes # 2.4 K/mcL (0.6-4.6); Lymphocytes % 28.8 %; Mean Corpuscular HGB Conc 34.5 g/dL (31.6-35.5); Mean Corpuscular Hemoglobin 31.1 pg (28.0-33.3); Mean Corpuscular Volume 90.1 fL (83.0-100.0); Mean Platelet Volume 10.5 fL (9.4-12.4); Monocytes # 0.7 K/mcL (0.0-1.3); Platelet Count 187 K/mcL (140-400); Red Blood Count 4.73 M/mcL (4.19-5.50)
[2018-01-19 05:40] LABS: BUN/Creatinine Ratio 14 (6-26); Blood Urea Nitrogen 17 mg/dL (8-23); Calcium 9.1 mg/dL (8.6-10.3); Carbon Dioxide 27 mEq/L (23-29); Chloride 107 mEq/L (98-107); Glucose 111 mg/dL (70-105); Osmolality,Calculated 294 (280-300); Potassium 3.6 mEq/L (3.5-5.1); Sodium 141 mEq/L (136-145); eGFR For African Americans > 60 (> 60); eGFR For Non-African Americans > 60 (> 60)
[2018-01-19] MEDS: *HR* Heparin 5,000 UNIT/ML VIAL SQ SCH (05:51)
[2018-01-19] MEDS: Budesonide/Formoterol 80/4.5 MDI IH PRN (07:49)
[2018-01-19] MEDS: Aspirin Enteric Coated 81 MG Tablet PO SCH (08:21)
[2018-01-19] MEDS: Loratadine 10 MG TABLET PO SCH (08:21)
[2018-01-19] MEDS: Furosemide 40 MG/4 ML VIAL IVP SCH (08:21)
--- NOTE | 2018-01-19 15:14 | Internal Med Progress Note ---
Date of Encounter: 01/19/18 Time of Encounter: 15:12 - Assessment and plan (1) Congestive heart failure Current Visit: Yes Status: Acute Qualifiers: Heart failure type: systolic Heart failure chronicity: acute on chronic Qualified Code(s): I50.23 - Acute on chronic systolic (congestive) heart failure (2) DVT prophylaxis Current Visit: No Status: Acute (3) Elevated troponin Current Visit: Yes Status: Acute - Time Spent With Patient Total time spent is greater than 50% in coordination of care (as documented) at patient's floor/unit and/or counseling patient: - Subjective Interval history: Patient seen and examined at bedside today. Denies any shortness of breath, reports that his breathing is improving. Additionally, he notes that his bilateral lower extremity swelling is also improving. - Constitutional Vitals: Temp Pulse Resp BP Pulse Ox 97.5 F L 54 16 91/67 93 01/19/18 10:55 01/19/18 10:55 01/19/18 10:55 01/19/18 10:55 01/19/18 10:55 General appearance: Present: cooperative, A&O X 3, pleasant, no acute distress - Head Head exam: Present: atraumatic, normocephalic - Eye Eye exam: Present: PERRL, conjuntiva pink, sclera anicteric Pupils: Present: PERRL - Neck Neck exam general surgery: Present: supple, trachea midline. Absent: lymphadenopathy - Respiratory Respiratory exam: Present: CTAB. Absent: accessory muscle use, rales, rhonchi, wheezes - Cardiovascular Cardiovascular exam: Present: RRR, +S1, +S2. Absent: diastolic murmur, gallop, rubs, systolic murmur - GI/Abdominal GI/Abdominal exam: Present: normal bowel sounds, soft, no peritoneal signs. Absent: distended, tenderness - Extremities Exam Extremities exam: Present: warm, radial pulses palpable and symmetrical. Absent : calf tenderness, cyanotic, pedal edema - Expanded Lower Extremities Exam Lower Leg exam: Absent: swelling Ankle exam: Absent: swelling - Neurological Exam Neurological exam: Present: CN II-XII intact, oriented X3, no focal deficits. Absent: pronater drift, facial droop, speech deficit - Skin Skin exam: Present: dry, intact Internal Medicine: Result - Labs CBC & Chem 7: 01/19/18 04:56 01/19/18 04:56 Labs: Short CBC 01/19/18 Range/Units 04:56 WBC 8.3 (4.3-11.1) K/mcL Hgb 14.7 (12.9-16.9) g/dL Hct 42.6 (37.5-50.1) % Plt Count 187 (140-400) K/mcL Neutrophils # 5.0 (1.6-8.9) K/mcL BMP 01/19/18 04:56 Sodium 141 Potassium 3.6 Chloride 107 Carbon Dioxide 27 BUN 17 Creatinine 1.20 Glucose 111 H Calcium 9.1 - ABG Interpretation ABG results: PT/INR, D-dimer PT 12.5 Seconds (9.4-12.1) H 01/17/18 00:49 Consult Discharge Plan - Plan Referrals: Virginie Everett MD [Primary Care Provider] - 01/25/18 8:30 am
[2018-01-19 15:49] VITALS: BP 97/58
--- NOTE | 2018-01-19 17:01 | Discharge Summary ---
- NOTES TO OUTPATIENT PROVIDER Notes to Outpatient Provider: Patient admitted for difficulty breathing and bilateral lower extremity swelling. Found to have an acute exacerbation of congestive heart failure. Date of Encounter: 01/19/18 Time of Encounter: 16:57 - Discharge Diagnosis (1) Congestive heart failure Priority: Primary Status: Acute Assessment and Plan: Found to have an acute exacerbation of CHF after presenting with a several day history of shortness of breath, orthopnea and PND as well as bilateral lower extremity edema and increased abdominal girth. BNP 709 on arrival. Patient was initially requiring 2 L nasal cannula and maintain SPO2 saturations. He reports that shortness of breath has subsided as of today, he is resting comfortably on room air without any respiratory distress, lungs are clear AP and L bilaterally to auscultation, S1-S2. No edema noted. Patient was ambulated in the hallway on room air with portable pulse oximeter was found to have no decrease in O2 saturation with ambulation. Patient is medically safe for discharge at this time. He will need to continue his home dose of Lasix and all cardiac medications upon discharge. He has been informed to follow-up with his PCP in 2-3 days upon discharge. Additionally, he has been informed to call his PCP should he have an increased in swelling, shortness of breath and/ or weight gain as he would likely benefit from additional intermittent doses of diuretics to prevent further admissions. Qualifiers: Heart failure type: systolic Heart failure chronicity: acute on chronic Qualified Code(s): I50.23 - Acute on chronic systolic (congestive) heart failure (2) Elevated troponin Priority: Secondary Status: Acute Assessment and Plan: Patient presented with an acute exacerbation of CHF, found to have an elevated troponin most likely demand ischemia. Troponins were trended and found to be adynamic. (3) DVT prophylaxis Priority: Secondary Status: Resolved Hospital course: Mr. Gomez is a 62 year old male presents with acute on chronic exacerbation of congestive heart failure. Patient with extensive history of CAD, recent TTE revealing LVEF of 30% and severely dilated left ventricle as well as severe global left ventricular systolic dysfunction. C in 11/22 which demonstrated normal coronary arteries. Presented on 01-16-18 with worsening shortness of breath over the last couple of days as well as paroxysmal nocturnal dyspnea, orthopnea, weight gain/abdominal girth and bilateral lower extremity swelling. Patient is an uneventful hospital course. Today's resting comfortably and in no respiratory distress. Bilateral extremity edema has subsided. Patient was able to safely ambulate throughout the floor while on portable pulse oximetry without any drop in SPO2. Patient is medically safe and stable for discharge today. - Time Spent with Patient Total time spent providing and/or coordinating discharge services: - Discharge Medications Home Medications: Albuterol Sulfate [Albuterol Inhaler] 2 puff IH Q4HR PRN 01/17/18 [History] Aspirin [Adult Aspirin Regimen] 81 mg PO DAILY 01/17/18 [History] Atorvastatin [Lipitor] 40 mg PO HS 01/17/18 [History] Carvedilol 3.125 mg PO BID 01/17/18 [History] Fluticasone Propionate Nasal [Flonase] 2 spr NS DAILY PRN 01/17/18 [History] Fluticasone/Salmeterol [Advair Hfa 115-21 Mcg Inhaler] 2 puff IH BID PRN [History] Furosemide [Lasix] 20 mg PO TID 01/17/18 [History] Lisinopril [Zestril] 10 mg PO DAILY 01/17/18 [History] Loratadine [Allergy Relief] 10 mg PO DAILY 01/17/18 [History] Montelukast [Singulair] 10 mg PO HS 01/17/18 [History] Spironolactone [Aldactone] 25 mg PO DAILY 01/17/18 [History] Allergies/Adverse Reactions: 3 Allergy/AdvReac Type Severity Reaction Status Date / Time penicillin V Allergy Mild See Verified 01/17/18 13:58 Comments Date of admission: 01/16/18 21:06 Primary care physician: Virginie Everett MD Consults: 01/18/18 08:33 Consult to Nurse Navigator [CONS] Routine Comment: CHF Discharging clinician: Fito Hernandez Anticipated date of discharge: 01/19/18 - Constitutional Vitals: Temp Pulse Resp BP Pulse Ox 98.8 F 72 16 97/58 93 01/19/18 15:45 01/19/18 15:45 01/19/18 15:45 01/19/18 15:45 01/19/18 15:45 General appearance: Present: cooperative, A&O X 3, pleasant, no acute distress - Head Head exam: Present: atraumatic, normocephalic - Eye Eye exam: Present: PERRL, conjuntiva pink, sclera anicteric Pupils: Present: PERRL - Neck Neck exam general surgery: Present: supple, trachea midline. Absent: lymphadenopathy - Respiratory Respiratory exam: Present: CTAB. Absent: accessory muscle use, rales, rhonchi, wheezes - Cardiovascular Cardiovascular exam: Present: RRR, +S1, +S2. Absent: diastolic murmur, gallop, rubs, systolic murmur - GI/Abdominal GI/Abdominal exam: Present: normal bowel sounds, soft, no peritoneal signs. Absent: distended, tenderness - Extremities Exam Extremities exam: Present: warm, radial pulses palpable and symmetrical. Absent : calf tenderness, cyanotic, pedal edema - Neurological Exam Neurological exam: Present: CN II-XII intact, oriented X3, no focal deficits. Absent: pronater drift, facial droop, speech deficit - Skin Skin exam: Present: dry, intact - Patient Status Disposition: Home, Self-Care Condition: Fair Overall status at discharge: patient is progressing back to baseline - Discharge Instructions Instructions: Low Sodium Diet (DC) Follow Up With: Virginie Everett MD [Primary Care Provider] - 01/25/18 8:30 am
== END 2018-01-19 17:29 | disposition home or self-care (01) ==
LOC: EMEROO 18:07 → 3BNU 18:07
PROVIDERS: ADMIT Internal Medicine; ATTEND Internal Medicine

== ENCOUNTER 2018-03-24 11:19 | Observation (INO) ==
--- NOTE | 2018-03-24 13:47 | Emergency Department Note ---
Disposition Clinical Impression: KAMERON (acute kidney injury), NSTEMI (non-ST elevated myocardial infarction), Elevated troponin Congestive heart failure Qualifiers: Heart failure type: unspecified Heart failure chronicity: acute on chronic Qualified Code(s): I50.9 - Heart failure, unspecified Disposition: Admitted As Inpatient Condition: Good Referrals: Virginie Everett MD [Primary Care Provider] - Forms: ED Satisfaction Letter Time of Disposition: 17:10 General Adult HPI - General Chief complaint: ED Shortness of Breath/Dyspnea Stated complaint: Congestion, CAROLANN Time Seen by Provider: 03/24/18 13:33 Source: patient Mode of arrival: wheelchair Limitations: no limitations Nursing Notes Reviewed: Yes Vital Signs Reviewed: Yes - History of Present Illness HPI Narrative: Three-day history of increasing weight gain. Does have a history of congestive heart failure. Also shortness of breath on exertion. No chest pain. Takes Lasix but states this is not helping. Does have normal urinary output. Pain Scale: 0 - Related Data Home Medications Medication Instructions Recorded Confirmed Albuterol Sulfate [Albuterol 2 puff IH Q4HR PRN 01/17/18 03/24/18 Inhaler] Aspirin [Adult Aspirin Regimen] 81 mg PO DAILY 01/17/18 03/24/18 Atorvastatin [Lipitor] 40 mg PO HS 01/17/18 03/24/18 Carvedilol 3.125 mg PO BID 01/17/18 03/24/18 Fluticasone Propionate Nasal 2 spr NS DAILY PRN 01/17/18 03/24/18 [Flonase] Fluticasone/Salmeterol [Advair Hfa 2 puff IH BID PRN 01/17/18 03/24/18 115-21 Mcg Inhaler] Furosemide [Lasix] 20 mg PO TID 01/17/18 03/24/18 Lisinopril [Zestril] 10 mg PO DAILY 01/17/18 03/24/18 Loratadine [Allergy Relief] 10 mg PO DAILY 01/17/18 03/24/18 Montelukast [Singulair] 10 mg PO HS 01/17/18 03/24/18 Spironolactone [Aldactone] 25 mg PO DAILY 01/17/18 03/24/18 Allergies Allergy/AdvReac Type Severity Reaction Status Date / Time penicillin V Allergy Severe See Verified 03/24/18 10:45 Comments Penicillins Allergy Severe Anaphylaxis Verified 03/24/18 11:41 All systems ED: reviewed and negative except as stated. Constitutional: Denies: fever, chills ENT ED: Denies: congestion Cardiovascular: Reports: palpitations (Occasionally feels palpitations. Does have a history of A. fib. Not at this time.), dyspnea on exertion, orthopnea. Denies: chest pain Respiratory: Reports: cough, dyspnea. Denies: wheezes Gastrointestinal: Denies: abdominal pain, nausea, vomiting, diarrhea, hematemesis Genitourinary: Denies: urgency, dysuria, frequency, hematuria Musculoskeletal: Denies: back pain, neck pain Integumentary: Denies: rash Neurological: Denies: headache, weakness Past Medical History - Past Medical History Attestation: Yes The following information was validated with the patient. Source: patient Medical history: Reports: atrial fibrillation, cardiomyopathy, CHF, COPD, hypertension Surgical history: Reports: other (heart catherization - no PCI), AICD Psychiatric history: Reports: no psych history - Social History Smoking Status: Unknown if ever smoked Smokeless Tobacco Status: No Alcohol use: Reports: none Drug use: Reports: none Physical Exam - General Limitations: no limitations General appearance: alert, in distress (Appears to be mildly dyspneic.) - Head Head exam: atraumatic, normocephalic, normal inspection - Eye Eye exam: Present: normal appearance, PERRL, EOMI - ENT ENT exam: normal exam, normal oropharynx, mucous membranes moist - Neck Neck exam: Present: normal inspection, full ROM, trachea midline - Chest Chest inspection: Present: normal inspection, symmetric chest wall rise - Respiratory Respiratory exam: Present: respiratory distress (Appears mildly dyspneic.), other (Does have some mild Rales in his lower lobes.). Absent: accessory muscle use - Cardiovascular Cardiovascular exam: Present: regular rate, normal rhythm, normal heart sounds - Abdominal Exam Abdominal exam: Present: soft, Non-Tender. Absent: tenderness, distention, guarding, rebound, rigidity - Extremities Exam Extremities exam: Present: normal capillary refill, pedal edema (Pitting to mid thighs.). Absent: tenderness, calf tenderness - Neurological Exam Neurological exam: Present: alert, oriented X3 - Psychiatric Psychiatric exam: Present: normal affect, normal mood - Skin Skin exam: Present: warm, dry, intact, normal color Course Course Narrative: Well-appearing male patient who is mildly dyspneic on oxygen at this time at 2 L stating that he has had increasing shortness of breath over the past 3 days. Does have a history of congestive heart failure. Also complaining of a 17 pound weight gain in the past 3 days. Patient denies any chest pain. States that he does occasionally feel like his heart is out of rhythm. Does have a history of A. fib. States it does not feel like that at this time. He denies any nausea vomiting or abdominal pain. Does report increasing swelling to his lower extremities. He states he was in the hospital in December for similar episode area he does take Lasix daily. 40 mg in the morning and 20 at night. States despite the increase in the Lasix dosing he is still swelling. Patient does have some mild Rales in his lower lobes bilaterally. He does have significant pitting edema to his mid thighs. Patient is on a pacemaker with unknown congestive heart failure history. On November 12 he had a left ventricular ejection fraction of 30%. He also had dilated ventricle. Patient denies any chest pain at this time. He does appear mildly dyspneic. We will place 1 inch of Nitropaste on patient's chest and get basic lab workup and an EKG on patient. - Reevaluation(s) Reevaluation #1: Male patient does have an elevated troponin. Also KAMERON. We have given the patient aspirin and will start on heparin. Patient is still not complaining of chest pain. He is sitting at the edge of the bed and is mentating appropriate. Does not appear to be in any distress. Patient jokingly states that he is told up his urinal since he got the Lasix. He is laughing when I discussed admission with him. He is agreeable. We will meant to the hospital this time. Vital Signs Temperature 98.0 F 03/24/18 11:39 Pulse Rate 80 03/24/18 11:39 Respiratory Rate 18 03/24/18 11:39 Blood Pressure 135/95 03/24/18 11:39 O2 Sat by Pulse Oximetry 93 03/24/18 11:39 Temperature 98.0 F 03/24/18 13:52 Pulse Rate 84 03/24/18 15:30 Respiratory Rate 16 03/24/18 15:30 Blood Pressure 115/101 03/24/18 15:30 O2 Sat by Pulse Oximetry 92 03/24/18 15:30 Oxygen Delivery Oxygen Delivery Nasal Cannula Medical Decision Making - Medical Records Medical records reviewed: Yes I reviewed the patient's medical records. - Lab Data Lab results reviewed: Yes I reviewed the patient's lab results. Result diagrams: 03/24/18 13:48 03/24/18 13:48 Lab Results 03/24/18 03/24/18 03/24/18 Range/Units 13:48 13:48 13:48 WBC 8.6 (4.3-11.1) K/mcL RBC 5.19 (4.19-5.50) M/mcL Hgb 15.7 (12.9-16.9) g/dL Hct 47.0 (37.5-50.1) % MCV 90.6 (83.0-100.0) fL MCH 30.3 (28.0-33.3) pg MCHC 33.4 (31.6-35.5) g/dL RDW 14.7 H (11.5-14.5) % Plt Count 197 (140-400) K/mcL MPV 11.1 (9.4-12.4) fL Immature Gran % 0.6 (0-4) % Seg Neutrophils % 72.5 % Lymphocytes % 17.1 % Monocytes % 8.1 % Eosinophils % 1.5 % Basophils % 0.2 % Neutrophils # 6.2 (1.6-8.9) K/mcL Lymphocytes # 1.5 (0.6-4.6) K/mcL Monocytes # 0.7 (0.0-1.3) K/mcL Eosinophils # 0.1 (0.0-0.6) K/mcL Basophils # 0.0 (0.0-0.2) K/mcL PT (9.4-12.1) Seconds INR Heparin Anti-Xa, Unfract (0.30-0.70) IU/mL Sodium 137 (136-145) mEq/L Potassium 3.6 (3.5-5.1) mEq/L Chloride 105 (98-107) mEq/L Carbon Dioxide 22 L (23-29) mEq/L BUN 18 (8-23) mg/dL Creatinine 1.52 H (0.70-1.30) mg/dL Est GFR ( Amer) 57 L (> 60) Est GFR (Non-Af Amer) 47 L (> 60) BUN/Creatinine Ratio 12 (6-26) Glucose 134 H (70-105) mg/dL Calculated Osmolality 288 (280-300) Lactic Acid 1.2 (0.5-2.2) mmol/L Calcium 9.3 (8.6-10.3) mg/dL Troponin I 0.07 H* (< 0.04) ng/mL B-Natriuretic Peptide (Less than 100) pg/mL 03/24/18 03/24/18 Range/Units 13:48 16:37 WBC (4.3-11.1) K/mcL RBC (4.19-5.50) M/mcL Hgb (12.9-16.9) g/dL Hct (37.5-50.1) % MCV (83.0-100.0) fL MCH (28.0-33.3) pg MCHC (31.6-35.5) g/dL RDW (11.5-14.5) % Plt Count (140-400) K/mcL MPV (9.4-12.4) fL Immature Gran % (0-4) % Seg Neutrophils % % Lymphocytes % % Monocytes % % Eosinophils % % Basophils % % Neutrophils # (1.6-8.9) K/mcL Lymphocytes # (0.6-4.6) K/mcL Monocytes # (0.0-1.3) K/mcL Eosinophils # (0.0-0.6) K/mcL Basophils # (0.0-0.2) K/mcL PT 13.8 H (9.4-12.1) Seconds INR 1.2 Heparin Anti-Xa, Unfract 0.01 L (0.30-0.70) IU/mL Sodium (136-145) mEq/L Potassium (3.5-5.1) mEq/L Chloride (98-107) mEq/L Carbon Dioxide (23-29) mEq/L BUN (8-23) mg/dL Creatinine (0.70-1.30) mg/dL Est GFR ( Amer) (> 60) Est GFR (Non-Af Amer) (> 60) BUN/Creatinine Ratio (6-26) Glucose (70-105) mg/dL Calculated Osmolality (280-300) Lactic Acid (0.5-2.2) mmol/L Calcium (8.6-10.3) mg/dL Troponin I (< 0.04) ng/mL B-Natriuretic Peptide 1117 H (Less than 100) pg/mL - Radiology Data Radiology results reviewed: Yes I reviewed the patient's radiology results. - EKG Data EKG #1 EKG attestation: Yes I reviewed and interpreted this EKG. EKG results narrative: Normal sinus rhythm at a rate of 96. UT interval is 198. QRS duration is 117. QT is 384. QTC is 438. No signs of acute ischemia. Patient does have a widened QRS complex. Patient's previous EKG dated 01/17/2018 had paced rhythm. There were some [place] beats. Attestation Statement - Attestation Attestation: I examined this patient and my medical decision-making was reviewed with the Resident Physician, Dr. Boyd. I agree with the documented findings, disposition and treatment plan as described except to the extent set forth below. Patient is a 62-year-old white male with a history of A. fib with RVR, CAD, CHF who presents to the emergency department with a three-day history of gradually worsening shortness of breath and shortness of breath with exertion as well as increased weak again and worsening lower extremity edema. Patient reports he was hospitalized in January for an acute exacerbation of his CHF and had his Lasix increased at that time. Patient states he been doing well until the past 3 days. Patient denies any chest pain pressure or heaviness no lightheadedness or syncope, no abdominal pain or back pain. Patient is not normally on oxygen but due to hypoxia on room air he was placed on 2 L nasal cannula and is satting 94% with some conversational dyspnea. I agree with patient's physical exam findings as documented. Vital signs are stable. EKG was normal sinus without acute ischemia paced rhythm. Patient's lab evaluation shows a mild AK I with mild elevation in troponin. Patient had no chest pain while in the emergency department clinically suspect this could be due to his worsening renal insufficiency. Chest x-ray shows acute congestive heart failure. Patient was treated with Lasix and nitroglycerin and is feeling better at bedside at this time. Due to the elevated troponin we will go ahead and cover him with ACS heparin. Patient will be admitted to the hospitalist service with consult to cardiology.
[2018-03-24 14:38] LABS: Basophils % 0.2 %; Eosinophils # 0.1 K/mcL (0.0-0.6); Eosinophils % 1.5 %; Hemoglobin 15.7 g/dL (12.9-16.9); Immature Granulocytes % 0.6 % (0-4); Lymphocytes # 1.5 K/mcL (0.6-4.6); Lymphocytes % 17.1 %; Mean Corpuscular HGB Conc 33.4 g/dL (31.6-35.5); Mean Corpuscular Hemoglobin 30.3 pg (28.0-33.3); Mean Corpuscular Volume 90.6 fL (83.0-100.0); Mean Platelet Volume 11.1 fL (9.4-12.4); Monocytes # 0.7 K/mcL (0.0-1.3); Monocytes % 8.1 %; Neutrophils # 6.2 K/mcL (1.6-8.9); Platelet Count 197 K/mcL (140-400); Red Blood Count 5.19 M/mcL (4.19-5.50); Red Cell Distribution Width 14.7 % (11.5-14.5); Segmented Neutrophils % 72.5 %
[2018-03-24] MEDS ORDERED: Nitroglycerin 1 INCH/GM PACKET TP ONE (14:38)
[2018-03-24 14:50] LABS: Calcium 9.3 mg/dL (8.6-10.3); Potassium 3.6 mEq/L (3.5-5.1)
[2018-03-24] MEDS ORDERED: Furosemide 40 MG/4 ML VIAL IVP ONE ×2 (15:16→22:00)
[2018-03-24 16:06] LABS: Troponin I 0.07 ng/mL (< 0.04)
[2018-03-24] MEDS ORDERED: Aspirin 81 MG TAB.CHEW PO ONE (16:08)
[2018-03-24] MEDS ORDERED: *HR* Heparin 5,000 UNIT/ML VIAL IVP PRN ×2 (16:41)
[2018-03-24] MEDS ORDERED: *HR* Heparin 5,000 UNIT/ML VIAL IVP ONE (16:41)
[2018-03-24 17:08] LABS: Heparin anti-factor XA UFH 0.01 IU/mL (0.30-0.70)
[2018-03-24 17:09] LABS: INR 1.2; Prothrombin Time 13.8 Seconds (9.4-12.1)
[2018-03-24] MEDS ORDERED: Fluticasone Propionate Nasal 50 MCG/SPRAY BOTTLE NS PRN (20:09)
[2018-03-24] MEDS: Heparin 25,000 UNIT/500 ML D5W 25,000 UNIT/500 ML BAG IVC SCH (20:43)
--- NOTE | 2018-03-24 21:08 | Internal Med History&Physical ---
Date of Encounter: 03/24/18 Time of Encounter: 21:05 Internal Medicine - H&P: HPI Chief complaint: shortness of breath Admitted From: Home Plans for Post Hospital Care: Home History of present illness: Mr. Gomez is a 62 year old male with a history of atrial fibrillation, COPD , hypertension and congestive heart failure s/p AICD who presents today with a complaint of 3 weeks of generalized body swelling, orthopnea, paroxysmal nocturnal dyspnea, reduced exercise tolerance and increasing shortness of breath. He reports being compliant with his medications and his dietary habits however over the last 2 days the shortness of breath has been increasingly bothersome which prompted him to seek medical attention today. He has been having a dry bothersome cough but denies any chest pain, fever, chills. He was administered one dose of 40 mg of Lasix in the emergency room which prompted relief and he had adequate urine output afterwards. Although he remained clinically and hemodynamically stable he was seen to have a mildly elevated troponin for which reason heparin drip was started. At this time he feels well and has no complaints. Past Med Surg Social Fam HX - Past Medical History Medical history: atrial fibrillation, cardiomyopathy, CHF, COPD, hypertension Additional medical history: unspecified heart problem Psychiatric history: no psych history - Past Surgical History Surgical History: other (heart catherization - no PCI), AICD Additional surgical history: AICD - Social History Smoking Status: Unknown if ever smoked Smokeless Tobacco Status: No Alcohol use: none Drug use: none - Family History Father Living Status: Still Living Hx Family Cardiac Disorders: Yes (cabg) Hx Family Endocrine Disorder: Yes (dm) Internal Medicine - H&P: Meds Albuterol Sulfate [Albuterol Inhaler] 2 puff IH Q4HR PRN 01/17/18 [History] Aspirin [Adult Aspirin Regimen] 81 mg PO DAILY 01/17/18 [History] Atorvastatin [Lipitor] 40 mg PO HS 01/17/18 [History] Carvedilol 3.125 mg PO BID 01/17/18 [History] Fluticasone Propionate Nasal [Flonase] 2 spr NS DAILY PRN 01/17/18 [History] Fluticasone/Salmeterol [Advair Hfa 115-21 Mcg Inhaler] 2 puff IH BID PRN [History] Furosemide [Lasix] 20 mg PO TID 01/17/18 [History] Lisinopril [Zestril] 10 mg PO DAILY 01/17/18 [History] Loratadine [Allergy Relief] 10 mg PO DAILY 01/17/18 [History] Montelukast [Singulair] 10 mg PO HS 01/17/18 [History] Spironolactone [Aldactone] 25 mg PO DAILY 01/17/18 [History] 3 Allergy/AdvReac Type Severity Reaction Status Date / Time penicillin V Allergy Severe See Verified 03/24/18 10:45 Comments Penicillins Allergy Severe Anaphylaxis Verified 03/24/18 11:41 All Systems PM: A 10-system review of systems was performed and is negative for pertinent findings except as documented above in the HPI. - Constitutional Vitals: Temp Pulse Resp BP Pulse Ox 98.0 F 72 16 113/69 93 03/24/18 13:52 03/24/18 20:18 03/24/18 20:50 03/24/18 20:50 03/24/18 20:18 Vitals reviewed and seemed to be within normal limits Exam: General: Obese white man in no acute distress sitting at the edge of his bed. Skin: Warm and moist. HEENT: Moist mucous membranes. No conjunctivae pallor. Neck: No lymphadenopathy. No carotid bruits. Chest: Normal thoracic expansion. Reduced breath sounds in both bases with fine rales auscultated up to the midlung anguiano bilaterally. Heart: Regularly irregular. Abdomen: Distended with abdominal wall edema present. Extremities: 3+ pitting edema up to both thighs. Neurological: Awake, alert and oriented to person, place and time. Internal Med - H&P Results - Labs CBC & Chem 7: 03/24/18 13:48 03/24/18 13:48 - EKG Data -: EKG Interpreted by Myself - Assessment and plan (1) Congestive heart failure Current Visit: Yes Status: Acute Assessment and plan: The patient's signs and symptoms ae consistent with an acute exacerbation of congestive heart failure. He reports medication adherence and no dietary indiscretions. It is possible he has been on insufficient doses of medications. His last EF was 30%. -Will give a total of 80mg furosemide IV today and place on 40mg BID tomorrow. -Continue carvedilol, spironolactone and lisinopril. -Will order a repeat TTE. -Cardiology consultation in the morning is warranted. -Telemetry monitoring. Qualifiers: Heart failure type: systolic Heart failure chronicity: acute on chronic Qualified Code(s): I50.23 - Acute on chronic systolic (congestive) heart failure (2) Elevated troponin Current Visit: Yes Status: Acute Assessment and plan: EKG seen is not of infarction. He has been without chest pain. His symptoms are subacute. This is likely secondary to demand and myocardial strain from the congestive heart failure. -Will continue to trend. -If lowering, will discontinue heparin drip. -Will await cardiology evaluation. (3) KAMERON (acute kidney injury) Current Visit: Yes Status: Acute Assessment and plan: Seen to have a mild elevation in serum creatinine from his baseline which could be secondary to poor effective volume. -For now the benefit of loop diuretics and acei outweigh the cost of dysfunction and with improvement in his cardiac condition, this should also get better. -Will monitor BMP closely. (4) Acute exacerbation of chronic obstructive airways disease Current Visit: Yes Status: Acute Assessment and plan: The patient has a reported history of COPD however is a lifelong non-smoker. 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 He may equally have a component of obesity hypoventilation syndrome. -Follows with pulmonary as an outpatient. -Continue CRYSTAL prn and LABA/ICS daily. -No need for systemic steroids or antibiotics at this time. (5) Morbid obesity with BMI of 45.0-49.9, adult Current Visit: No Status: Chronic Assessment and plan: Educated on therapeutic lifestyle measures to reduce weight and his burden of disease. Will benefit from a school aide evaluation. (6) DVT prophylaxis Current Visit: Yes Status: Acute Assessment and plan: Currently on heparin gtt. Once discontinued will be placed on appropriate therapy. - Time Spent With Patient Total time spent is greater than 50% in coordination of care (as documented) at patient's floor/unit and/or counseling patient:
[2018-03-24] MEDS: Budesonide/Formoterol 80/4.5 MDI IH SCH (21:18)
[2018-03-25 04:12] LABS: Hematocrit 44.4 % (37.5-50.1); Hemoglobin 14.8 g/dL (12.9-16.9); Mean Corpuscular HGB Conc 33.3 g/dL (31.6-35.5); Mean Corpuscular Hemoglobin 29.6 pg (28.0-33.3); Mean Corpuscular Volume 88.8 fL (83.0-100.0); Mean Platelet Volume 10.7 fL (9.4-12.4); Platelet Count 186 K/mcL (140-400); Red Cell Distribution Width 14.9 % (11.5-14.5)
[2018-03-25 04:33] LABS: Alanine Aminotransferase 25 Units/L (7-52); Albumin 3.9 g/dL (3.5-5.7); Albumin/Globulin Ratio 1.6 (1.1-2.2); Alkaline Phosphatase 89 Units/L (34-104); Aspartate Amino Transferase 25 Units/L (13-39); BUN/Creatinine Ratio 12 (6-26); Bilirubin,Total 2.5 mg/dL (0.3-1.0); Blood Urea Nitrogen 16 mg/dL (8-23); Calcium 9.4 mg/dL (8.6-10.3); Carbon Dioxide 26 mEq/L (23-29); Chloride 105 mEq/L (98-107); Chol/HDL Ratio 4.5 (0-4.9); Cholesterol 118 mg/dL (< 200); Globulin 2.5 g/dL (2.4-3.5); Glucose 122 mg/dL (70-105); HDL Cholesterol 26 mg/dL (40-59); LDL Cholesterol,Calculated 75 mg/dL (0-99); Osmolality,Calculated 294 (280-300); Potassium 3.3 mEq/L (3.5-5.1); Sodium 141 mEq/L (136-145); Total Protein 6.4 g/dL (6.4-8.9); Triglycerides 83 mg/dL (< 150); eGFR For Non-African Americans 52 (> 60)
[2018-03-25 04:41] LABS: Troponin I 0.07 ng/mL (< 0.04)
[2018-03-25] MEDS ORDERED: Perflutren Lipid Microsphere 1.3 ML in 0.9 % Sodium Chloride 8.7 ML IVP ONE (09:40)
[2018-03-25] MEDS ORDERED: Furosemide 40 MG/4 ML VIAL IVP SCH (10:00)
[2018-03-25] MEDS: Budesonide/Formoterol 80/4.5 MDI IH SCH ×2 (10:08→21:59)
--- NOTE | 2018-03-25 10:47 | Internal Med Progress Note ---
<Fabian Gil - Last Filed: 03/25/18 18:22> Date of Encounter: 03/25/18 Time of Encounter: 10:48 - Assessment and plan (1) Acute on chronic diastolic CHF (congestive heart failure) Current Visit: Yes Status: Acute Assessment and plan: - patient has a Hx of CHF s/p AICD, takes home lasix, spironolactone, Carvedilol - patient has a Hx for multiple admissions in the past for the same reason - he presented with SINGER, orthopnea, Parxysmal noturnal dyspnea on admssion , 3+ pitting edema, Is/OS: 751/1900 - Echocardiogram showed a left ventricular ejection fraction (LVEF) of 10-15%. His last EF was 30%. - aggressive diuresis (Furosemide 40 mg IVP) , continue carvedilol, spironolactone and lisinopril. (2) COPD (chronic obstructive pulmonary disease) Current Visit: No Status: Chronic Assessment and plan: -Patient has a hx of COPD - takes 2 puffs of albuterol sulfate inhaler - endorses no change in the colour of sputum, or productive cough, or the frequency of cough - continue to monitor hemodynamic function -melvi PRN Qualifiers: Qualified Code(s): J44.9 - Chronic obstructive pulmonary disease, unspecified (3) Elevated troponin Current Visit: Yes Status: Acute Assessment and plan: - his troponin levels have been 0.07 , 0.07 - could be due to increased wall stress secondary to his CHF - will a wait cardiology evaluation , meanwhile continue to monitor troponin function (4) KAMERON (acute kidney injury) Current Visit: Yes Status: Acute Assessment and plan: - KAMERON on admission, seems to be resolving - continue to monitor his kidney function, avoid all nephrotoxic agents (5) DVT prophylaxis Current Visit: Yes Status: Acute Assessment and plan: on heparin gtt (6) Obesity Current Visit: Yes Status: Acute Assessment and plan: -patient had a Hx of morbid obesity -patient endorses he has been trying to control his diet , eat less salt in his diet. it could partly be secondary to his weight gain from 330 to 356 in the last 2 months - education on better food choices Qualifiers: Qualified Code(s): E66.9 - Obesity, unspecified; Z68.42 - Body mass index ( BMI) 45.0-49.9, adult - Time Spent With Patient Total time spent is greater than 50% in coordination of care (as documented) at patient's floor/unit and/or counseling patient: - Subjective Interval history: Mr Brownlee a 62 year is pleasant gentle man with a PMHx of CHF (s/p AICD), COPD has been admitted to the hospital medicine service because of 3 weeks of progressively worsening orthopnea, SINGER and paroxysmal nocturnal dyspnea. He endorses he has gained 26 pounds in the last 2 months (330 to 356 pounds). Patient takes spironolactone 25 mg PO, furosemide 20 mg 3 times a day, carvedilol to 3.125 by mouth for many years. He endorses that his PCP recently increased his Lasix from 20 mg twice a day 20 mg 3 times a day but that did not help. Patient endorses that he has been trying to eat less salt in his diet and restrict the amount of fluid he takes to less than 1.5 L that has not been helping. He endorses increase in his dry cough for the last 4-5 weeks. Patient has no history of myocardial infarction, Patient presented to the hospital with similar complaints in January 2018. He was noted to be in acute CHF. Prior to that episode he has been hospitalized twice in the past for CHF, and he improved clinically after aggressive IV diuresis. Of note, he had a recent heart catheterization revealing normal coronary arteries but he does have a dilated cardiomyopathy with an EF of 30-45%. The patient was in no acute distress when i saw him. He's currently on 40 mg IV lasix . He says his been feeling better ever since he came here to the hospital. Dyspnea, orthopnea seems to be relatively better than yesterday. - Constitutional Vitals: Temp Pulse Resp BP Pulse Ox 97.7 F 92 17 115/103 96 03/25/18 06:50 03/25/18 06:50 03/25/18 06:50 03/25/18 06:50 03/25/18 06:50 Exam: no acute distress, A&O*3, good mentation - Neck Additional comments: Full ROM, no JVDs, trachea midline - Respiratory Additional comments: CTAB, no ronchi, wheeing - Cardiovascular Additional comments: no JVD, no S3 sounds, RRR, - GI/Abdominal Additional comments: Soft, nontender, non-distended, no organomegaly - Extremities Exam Additional comments: 3+ pitting edema on both the legs, pulses symmetrical bilaterally Internal Medicine: Result - Labs CBC & Chem 7: 03/25/18 03:42 03/25/18 03:42 Labs: Short CBC 03/25/18 Range/Units 03:42 WBC 9.5 (4.3-11.1) K/mcL Hgb 14.8 (12.9-16.9) g/dL Hct 44.4 (37.5-50.1) % Plt Count 186 (140-400) K/mcL BMP 03/25/18 03:42 Sodium 141 Potassium 3.3 L Chloride 105 Carbon Dioxide 26 BUN 16 Creatinine 1.39 H Glucose 122 H Calcium 9.4 Cardiac Enzymes 03/24/18 03/25/18 Range/Units 22:20 03:42 Troponin I 0.07 H* 0.07 H* (< 0.04) ng/mL Liver Function 03/25/18 Range/Units 03:42 Total Bilirubin 2.5 H (0.3-1.0) mg/dL AST 25 (13-39) Units/L ALT 25 (7-52) Units/L Alkaline Phosphatase 89 (34-104) Units/L Albumin 3.9 (3.5-5.7) g/dL - ABG Interpretation ABG results: PT/INR, D-dimer PT 13.8 Seconds (9.4-12.1) H 03/24/18 16:37 Consult Discharge Plan - Plan Referrals: Virginie Everett MD [Primary Care Provider] - <Armin Colby - Last Filed: 03/25/18 18:36> Date of Encounter: 03/25/18 - Assessment and plan (1) KAMERON (acute kidney injury) Current Visit: Yes Status: Acute (2) COPD (chronic obstructive pulmonary disease) Current Visit: No Status: Chronic Qualifiers: COPD type: emphysema Emphysema type: panlobular Qualified Code(s): J43.1 - Panlobular emphysema (3) DVT prophylaxis Current Visit: Yes Status: Acute (4) Elevated troponin Current Visit: Yes Status: Acute (5) Acute on chronic diastolic CHF (congestive heart failure) Current Visit: Yes Status: Acute (6) Obesity Current Visit: Yes Status: Acute Qualifiers: Obesity type: due to excess calories Obesity classification: adult class 3 (BMI >= 40) Serious obesity comorbidity presence: with serious comorbidity Body mass index: BMI 45.0-49.9 Qualified Code(s): E66.01 - Morbid (severe) obesity due to excess calories; Z68.42 - Body mass index (BMI) 45.0-49.9, adult (7) Congestive heart failure Current Visit: Yes Status: Acute Assessment and plan: Diurese more tonight. Reassess status in AM. Qualifiers: Heart failure type: systolic Heart failure chronicity: acute on chronic Qualified Code(s): I50.23 - Acute on chronic systolic (congestive) heart failure (8) Non-ischemic cardiomyopathy Current Visit: No Status: Chronic (9) Hypokalemia Current Visit: Yes Status: Acute Assessment and plan: New today. Due to diuresis. Replace. Recheck tomorrow with magnesium level. - Time Spent With Patient Total time spent is greater than 50% in coordination of care (as documented) at patient's floor/unit and/or counseling patient: - Constitutional Vitals: Temp Pulse Resp BP Pulse Ox 97.9 F 93 18 96/86 93 03/25/18 15:41 03/25/18 15:41 03/25/18 15:41 03/25/18 15:41 03/25/18 15:41 Internal Medicine: Result - Labs CBC & Chem 7: 03/25/18 03:42 03/25/18 03:42 Labs: Short CBC 03/25/18 Range/Units 03:42 WBC 9.5 (4.3-11.1) K/mcL Hgb 14.8 (12.9-16.9) g/dL Hct 44.4 (37.5-50.1) % Plt Count 186 (140-400) K/mcL BMP 03/25/18 03:42 Sodium 141 Potassium 3.3 L Chloride 105 Carbon Dioxide 26 BUN 16 Creatinine 1.39 H Glucose 122 H Calcium 9.4 Cardiac Enzymes 03/24/18 03/25/18 Range/Units 22:20 03:42 Troponin I 0.07 H* 0.07 H* (< 0.04) ng/mL Liver Function 03/25/18 Range/Units 03:42 Total Bilirubin 2.5 H (0.3-1.0) mg/dL AST 25 (13-39) Units/L ALT 25 (7-52) Units/L Alkaline Phosphatase 89 (34-104) Units/L Albumin 3.9 (3.5-5.7) g/dL - ABG Interpretation ABG results: PT/INR, D-dimer PT 13.8 Seconds (9.4-12.1) H 03/24/18 16:37 - Impressions Impressions Echocardiogram 03/25/18 22:42 Impressions: LVEF 10-15%. Severely dilated left ventricle. Indeterminate diastolic function. There is no LV thrombus. Definity echo contrast was used. RV is normal in size with mild to moderate reduction in function. Mild mitral regurgitation. Mild tricuspid regurgitation. Moderate pulmonary hypertension. The IVC is dilated. Left Ventricular Wall Motion: Rest Echo Findings The apex, apical inferior, mid inferior, basal inferior, apical anterior, mid anterior, basal anterior, apical septal, mid inferior septal, basal inferior septal, apical lateral, mid anterior lateral, basal anterior lateral, mid anterior septal, mid inferior lateral, basal anterior septal and basal inferior lateral pérez were hypokinetic. Findings: Study Quality * Technically challenging due to body habitus. ECG Findings * Sinus rhythm with PVCs. Left Ventricle * LVEF 10-15%. * Severely dilated left ventricle. * Indeterminate diastolic function. * There is no LV thrombus. * Definity echo contrast was used. Right Ventricle * RV is normal in size with mild to moderate reduction in function. Left Atrium * Moderately dilated left atrium. Right Atrium * Normal right atrial size. Aortic Valve * No aortic regurgitation. * Trileaflet aortic valve. * No aortic stenosis. Mitral Valve * Normal mitral valve structure. * No mitral stenosis. * Mild mitral regurgitation. Tricuspid Valve * Tricuspid valve not well visualized. * Mild tricuspid regurgitation. * Estimated RA pressure is 20 mmHg. * Estimated RVSP is 56 mmHg. * Moderate pulmonary hypertension. Pulmonic Valve * Pulmonic valve is not well visualized. * No pulmonic stenosis. * No pulmonic regurgitation. Pulmonary Artery * Pulmonary artery not well visualized. Aorta * Normally sized aortic root. Pericardium * There is no pericardial effusion present. Device lead * A device lead was visualized in the right atrium and right ventricle. Interatrial Septum * No evidence of PFO by color Doppler. IVC * The IVC is dilated. * < 50% respiratory change. - Attending Attestation I examined this patient and my medical decision-making was reviewed with the Resident Physician on 03/25/18. I agree with the documented findings, disposition and treatment plan as described except to the extent set forth below. Mr Gomez is currently in observation for acute exac CHF. He remains moderate to high risk. Mr Gomez is resting comfortably. He has been diuresing well. Had repeat echo today. No fever or chills. No CP. Exam Alert Comfortable lying in bed Mucus membranes dry Heart distant Some rales Abd soft Edema present I/P 1. Acute exac CHF - echo has showed significant decrease in EF down to 10%. He has AICD. Continue diuresis. 2. Nonischemic cardiomyopathy Further diagnoses and plan as above.
[2018-03-25] MEDS: Spironolactone 25 MG TABLET PO SCH (11:03)
[2018-03-25] MEDS: Aspirin Enteric Coated 81 MG Tablet PO SCH (11:03)
[2018-03-25] MEDS: Loratadine 10 MG TABLET PO SCH (11:03)
[2018-03-25] MEDS: Furosemide 40 MG/4 ML VIAL IVP SCH (17:59)
[2018-03-25] MEDS: Heparin 25,000 UNIT/500 ML D5W 25,000 UNIT/500 ML BAG IVC SCH (18:40)
--- NOTE | 2018-03-25 19:04 | Electrocardiograph Report ---
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
[2018-03-26] MEDS: Loratadine 10 MG TABLET PO SCH (09:58)
[2018-03-26] MEDS: Aspirin Enteric Coated 81 MG Tablet PO SCH (09:58)
[2018-03-26] MEDS: Furosemide 40 MG/4 ML VIAL IVP SCH ×2 (09:59→17:04)
[2018-03-26 10:07] LABS: BUN/Creatinine Ratio 11 (6-26); Blood Urea Nitrogen 16 mg/dL (8-23); Calcium 9.5 mg/dL (8.6-10.3); Carbon Dioxide 29 mEq/L (23-29); Chloride 105 mEq/L (98-107); Glucose 121 mg/dL (70-105); Osmolality,Calculated 294 (280-300); Potassium 3.6 mEq/L (3.5-5.1); Sodium 141 mEq/L (136-145); eGFR For Non-African Americans 50 (> 60)
[2018-03-26 10:42] LABS: Basophils % 0.3 %; Eosinophils # 0.2 K/mcL (0.0-0.6); Eosinophils % 2.2 %; Hematocrit 44.9 % (37.5-50.1); Hemoglobin 14.8 g/dL (12.9-16.9); Immature Granulocytes % 0.6 % (0-4); Immature Platelets 5.6 % (1.1-6.1); Lymphocytes # 1.3 K/mcL (0.6-4.6); Mean Corpuscular Volume 90.9 fL (83.0-100.0); Monocytes # 0.7 K/mcL (0.0-1.3); Monocytes % 8.7 %; Neutrophils # 5.6 K/mcL (1.6-8.9); Platelet Count 188 K/mcL (140-400); Red Blood Count 4.94 M/mcL (4.19-5.50); Red Cell Distribution Width 15.3 % (11.5-14.5); Segmented Neutrophils % 71.2 %
[2018-03-26] MEDS: Budesonide/Formoterol 80/4.5 MDI IH SCH ×2 (12:35→20:07)
[2018-03-26] MEDS: Spironolactone 25 MG TABLET PO SCH (16:51)
[2018-03-26] MEDS: *HR* Heparin 5,000 UNIT/ML VIAL SQ SCH ×2 (17:03→21:47)
--- NOTE | 2018-03-26 18:02 | Internal Med Progress Note ---
<Armin Colby - Last Filed: 03/26/18 18:47> Date of Encounter: 03/26/18 - Assessment and plan (1) KAMERON (acute kidney injury) Current Visit: Yes Status: Acute (2) COPD (chronic obstructive pulmonary disease) Current Visit: No Status: Chronic Qualifiers: COPD type: emphysema Emphysema type: panlobular Qualified Code(s): J43.1 - Panlobular emphysema (3) DVT prophylaxis Current Visit: Yes Status: Acute (4) Elevated troponin Current Visit: Yes Status: Acute (5) Acute on chronic diastolic CHF (congestive heart failure) Current Visit: Yes Status: Acute (6) Obesity Current Visit: Yes Status: Acute Qualifiers: Obesity type: due to excess calories Obesity classification: adult class 3 (BMI >= 40) Serious obesity comorbidity presence: with serious comorbidity Body mass index: BMI 45.0-49.9 Qualified Code(s): E66.01 - Morbid (severe) obesity due to excess calories; Z68.42 - Body mass index (BMI) 45.0-49.9, adult (7) Congestive heart failure Current Visit: Yes Status: Acute Qualifiers: Heart failure type: systolic Heart failure chronicity: acute on chronic Qualified Code(s): I50.23 - Acute on chronic systolic (congestive) heart failure (8) Non-ischemic cardiomyopathy Current Visit: No Status: Chronic (9) Hypokalemia Current Visit: Yes Status: Resolved - Time Spent With Patient Total time spent is greater than 50% in coordination of care (as documented) at patient's floor/unit and/or counseling patient: - Constitutional Vitals: Temp Pulse Resp BP Pulse Ox 97.8 F 97 15 106/78 97 03/26/18 15:08 03/26/18 15:08 03/26/18 15:08 03/26/18 15:08 03/26/18 15:08 Internal Medicine: Result - Labs CBC & Chem 7: 03/26/18 03:59 03/26/18 03:59 Labs: Short CBC 03/26/18 Range/Units 03:59 WBC 7.9 (4.3-11.1) K/mcL Hgb 14.8 (12.9-16.9) g/dL Hct 44.9 (37.5-50.1) % Plt Count 188 (140-400) K/mcL Neutrophils # 5.6 (1.6-8.9) K/mcL BMP 03/26/18 03:59 Sodium 141 Potassium 3.6 Chloride 105 Carbon Dioxide 29 BUN 16 Creatinine 1.43 H Glucose 121 H Calcium 9.5 - ABG Interpretation ABG results: PT/INR, D-dimer PT 13.8 Seconds (9.4-12.1) H 03/24/18 16:37 Consult Discharge Plan - Plan Referrals: Virginie Everett MD [Primary Care Provider] - - Attending Attestation I examined this patient and my medical decision-making was reviewed with the Resident Physician on 03/26/18. I agree with the documented findings, disposition and treatment plan as described except to the extent set forth below. Mr Gomez has been admitted for acute exac systolic CHF. He remains moderate to high risk at this time. Mr Gomez is breathing somewhat better. No fever or chills. Has visitors now. No CP. BP has been up and down. Exam alert Comfortable Mucus membranes dry Heart not tachy No wheeze I/P 1. CHF Further diagnoses and plan as above <Fabian Gil - Last Filed: 03/26/18 22:02> Date of Encounter: 03/26/18 Time of Encounter: 09:45 - Assessment and plan (1) Acute on chronic diastolic CHF (congestive heart failure) Current Visit: Yes Status: Acute Assessment and plan: - patient has a Hx of CHF s/p AICD, takes home lasix, spironolactone, Carvedilol - patient has a Hx for multiple admissions in the past for the same reason - he presented with SINGER, orthopnea, Parxysmal noturnal dyspnea on admssion , 2+ pitting edema, Is/OS: 700/1500 - Echocardiogram showed a left ventricular ejection fraction (LVEF) of 10-15%. His last EF was 30%. - aggressive diuresis (Furosemide 40 mg IVP) , continue carvedilol, spironolactone and lisinopril. - Monitor hemodynamic status in the morning (2) KAMERON (acute kidney injury) Current Visit: Yes Status: Acute Assessment and plan: - KAMERON on admission, seems to be resolving - could be secondary to lasix and his hemodynamic picture - continue to monitor his kidney function, avoid all nephrotoxic agents (3) COPD (chronic obstructive pulmonary disease) Current Visit: No Status: Chronic Assessment and plan: -Patient has a hx of COPD - takes 2 puffs of albuterol sulfate inhaler - endorses no change in the colour of sputum, or productive cough, or the frequency of cough - continue to monitor hemodynamic function -melvi PRN Qualifiers: COPD type: emphysema Emphysema type: panlobular Qualified Code(s): J43.1 - Panlobular emphysema (4) Elevated troponin Current Visit: Yes Status: Acute Assessment and plan: - his troponin levels have been 0.07 , 0.07 - could be due to increased wall stress secondary to his CHF - will a wait cardiology evaluation , meanwhile continue to monitor troponin function (5) Obesity Current Visit: Yes Status: Acute Qualifiers: Obesity type: due to excess calories Obesity classification: adult class 3 (BMI >= 40) Serious obesity comorbidity presence: with serious comorbidity Body mass index: BMI 45.0-49.9 Qualified Code(s): E66.01 - Morbid (severe) obesity due to excess calories; Z68.42 - Body mass index (BMI) 45.0-49.9, adult (6) DVT prophylaxis Current Visit: Yes Status: Acute Assessment and plan: on heparin sub Q - Time Spent With Patient Total time spent is greater than 50% in coordination of care (as documented) at patient's floor/unit and/or counseling patient: - Subjective Interval history: 03/26: no acute changes overnight. Patient's was A&O*3, he endorses decreased cough, improvement in his dyspnea, orthopnea, and paroxysmal nocturnal dyspnea. His pedal edema has reduced from 3 to 2+. He continues to be agressively diuresed on 40 mg IV Lasix. Because of his co-morbidities and multiple admission to the hospital for the same reason, we are going to continue to diurese him until he has achieved his baseline hemodynamic status 03/25: Mr Brownlee a 62 year is pleasant gentle man with a PMHx of CHF (s/p AICD) , COPD has been admitted to the hospital medicine service because of 3 weeks of progressively worsening orthopnea, SINGER and paroxysmal nocturnal dyspnea. He endorses he has gained 26 pounds in the last 2 months (330 to 356 pounds). Patient takes spironolactone 25 mg PO, furosemide 20 mg 3 times a day, carvedilol to 3.125 by mouth for many years. He endorses that his PCP recently increased his Lasix from 20 mg twice a day 20 mg 3 times a day but that did not help. Patient endorses that he has been trying to eat less salt in his diet and restrict the amount of fluid he takes to less than 1.5 L that has not been helping. He endorses increase in his dry cough for the last 4-5 weeks. Patient has no history of myocardial infarction, Patient presented to the hospital with similar complaints in January 2018. He was noted to be in acute CHF. Prior to that episode he has been hospitalized twice in the past for CHF, and he improved clinically after aggressive IV diuresis. Of note, he had a recent heart catheterization revealing normal coronary arteries but he does have a dilated cardiomyopathy with an EF of 30-45%. The patient was in no acute distress when i saw him. He's currently on 40 mg IV lasix . He says his been feeling better ever since he came here to the hospital. Dyspnea, orthopnea seems to be relatively better than yesterday. - Constitutional Vitals: Temp Pulse Resp BP Pulse Ox 97.8 F 97 15 106/78 97 03/26/18 15:08 03/26/18 15:08 03/26/18 15:08 03/26/18 15:08 03/26/18 15:08 - Head Head exam: Present: atraumatic, normal inspection, normocephalic - Respiratory Additional comments: CTAB, no ronchi, wheeing - Cardiovascular Additional comments: no JVD, no S3 sounds, RRR, - GI/Abdominal Additional comments: Soft, nontender, non-distended, no organomegaly - Extremities Exam Additional comments: 2+ pitting edema, pulses symmetrical bilaterally, ROM compromised due to morbid obesity Internal Medicine: Result - Labs CBC & Chem 7: 03/26/18 03:59 03/26/18 03:59 Labs: Short CBC 03/26/18 Range/Units 03:59 WBC 7.9 (4.3-11.1) K/mcL Hgb 14.8 (12.9-16.9) g/dL Hct 44.9 (37.5-50.1) % Plt Count 188 (140-400) K/mcL Neutrophils # 5.6 (1.6-8.9) K/mcL BMP 03/26/18 03:59 Sodium 141 Potassium 3.6 Chloride 105 Carbon Dioxide 29 BUN 16 Creatinine 1.43 H Glucose 121 H Calcium 9.5 - ABG Interpretation ABG results: PT/INR, D-dimer PT 13.8 Seconds (9.4-12.1) H 03/24/18 16:37
[2018-03-27 05:25] LABS: Basophils % 0.4 %; Eosinophils # 0.2 K/mcL (0.0-0.6); Eosinophils % 2.1 %; Hematocrit 44.4 % (37.5-50.1); Hemoglobin 14.6 g/dL (12.9-16.9); Immature Granulocytes % 0.3 % (0-4); Lymphocytes # 1.2 K/mcL (0.6-4.6); Lymphocytes % 17.2 %; Mean Corpuscular HGB Conc 32.9 g/dL (31.6-35.5); Mean Corpuscular Hemoglobin 30.2 pg (28.0-33.3); Mean Corpuscular Volume 91.7 fL (83.0-100.0); Mean Platelet Volume 10.8 fL (9.4-12.4); Monocytes # 0.7 K/mcL (0.0-1.3); Monocytes % 10.3 %; Platelet Count 169 K/mcL (140-400); Red Blood Count 4.84 M/mcL (4.19-5.50); Red Cell Distribution Width 14.9 % (11.5-14.5); Segmented Neutrophils % 69.7 %
[2018-03-27] MEDS: *HR* Heparin 5,000 UNIT/ML VIAL SQ SCH ×3 (05:35→20:42)
[2018-03-27 05:36] LABS: BUN/Creatinine Ratio 13 (6-26); Blood Urea Nitrogen 16 mg/dL (8-23); Calcium 9.3 mg/dL (8.6-10.3); Carbon Dioxide 30 mEq/L (23-29); Chloride 104 mEq/L (98-107); Glucose 114 mg/dL (70-105); Osmolality,Calculated 292 (280-300); Potassium 3.2 mEq/L (3.5-5.1); Sodium 140 mEq/L (136-145); eGFR For Non-African Americans > 60 (> 60)
[2018-03-27] MEDS: Budesonide/Formoterol 80/4.5 MDI IH SCH ×2 (07:56→21:11)
[2018-03-27] MEDS: Furosemide 40 MG/4 ML VIAL IVP SCH ×2 (08:53→16:51)
[2018-03-27] MEDS: Aspirin Enteric Coated 81 MG Tablet PO SCH (08:54)
[2018-03-27] MEDS: Loratadine 10 MG TABLET PO SCH (08:54)
[2018-03-27] MEDS: Spironolactone 25 MG TABLET PO SCH (08:54)
--- NOTE | 2018-03-27 18:45 | Internal Med Progress Note ---
Date of Encounter: 03/27/18 Time of Encounter: 13:00 - Assessment and plan (1) Hypokalemia Current Visit: Yes Status: Acute Assessment and plan: Persists today. Replace. (2) Congestive heart failure Current Visit: Yes Status: Acute Assessment and plan: - Continues to slowly improve with diuresis. Monitor tonight. Will reassess in AM regarding need for continued stay. Qualifiers: Heart failure type: systolic Heart failure chronicity: acute on chronic Qualified Code(s): I50.23 - Acute on chronic systolic (congestive) heart failure (3) Non-ischemic cardiomyopathy Current Visit: No Status: Chronic Assessment and plan: EF much lower this time. Will need further cardiac follow up. Has AICD. (4) COPD (chronic obstructive pulmonary disease) Current Visit: No Status: Chronic Assessment and plan: -Not in exacerbation at this time. Continue PRN meds. Qualifiers: COPD type: emphysema Emphysema type: panlobular Qualified Code(s): J43.1 - Panlobular emphysema (5) DVT prophylaxis Current Visit: Yes Status: Acute (6) Obesity Current Visit: Yes Status: Chronic Assessment and plan: -patient had a Hx of morbid obesity -patient endorses he has been trying to control his diet , eat less salt in his diet. it could partly be secondary to his weight gain from 330 to 356 in the last 2 months - education on better food choices Qualifiers: Obesity type: due to excess calories Obesity classification: adult class 3 (BMI >= 40) Serious obesity comorbidity presence: with serious comorbidity Body mass index: BMI 45.0-49.9 Qualified Code(s): E66.01 - Morbid (severe) obesity due to excess calories; Z68.42 - Body mass index (BMI) 45.0-49.9, adult - Time Spent With Patient Total time spent is greater than 50% in coordination of care (as documented) at patient's floor/unit and/or counseling patient: - Subjective Interval history: Mr Gomez is currently admitted for acute exac CHF and severe cardiomyopathy. He remains moderate to high risk due to potential for worsening clinical status. Mr Gomez is resting comfortably. He has been diuresing. No fever or chills. No cough or GI issues. - Constitutional Vitals: Temp Pulse Resp BP Pulse Ox 97.5 F L 86 16 104/75 95 03/27/18 15:43 03/27/18 15:43 03/27/18 07:57 03/27/18 15:43 03/27/18 07:57 General appearance: Present: A&O X 3, answers questions appropriately - Head Head exam: Present: normocephalic - Eye Eye exam: Present: conjuntiva pink - ENT ENT exam: Present: mucous membranes moist - Respiratory Respiratory exam: Present: decreased breath sounds, CTAB. Absent: rales, rhonchi, wheezes - Cardiovascular Cardiovascular exam: Present: distant heart sounds, RRR - GI/Abdominal GI/Abdominal exam: Present: soft. Absent: tenderness - Extremities Exam Extremities exam: Present: pedal edema, warm - Neurological Exam Neurological exam: Present: alert, oriented X3 - Skin Skin exam: Present: dry, warm Internal Medicine: Result - Labs CBC & Chem 7: 03/27/18 04:41 03/27/18 04:41 Labs: Short CBC 03/27/18 Range/Units 04:41 WBC 7.2 (4.3-11.1) K/mcL Hgb 14.6 (12.9-16.9) g/dL Hct 44.4 (37.5-50.1) % Plt Count 169 (140-400) K/mcL Neutrophils # 5.0 (1.6-8.9) K/mcL BMP 03/27/18 04:41 Sodium 140 Potassium 3.2 L Chloride 104 Carbon Dioxide 30 H BUN 16 Creatinine 1.22 Glucose 114 H Calcium 9.3 - ABG Interpretation ABG results: PT/INR, D-dimer PT 13.8 Seconds (9.4-12.1) H 03/24/18 16:37 Consult Discharge Plan - Plan Referrals: Virginie Everett MD [Primary Care Provider] -
[2018-03-28] MEDS: *HR* Heparin 5,000 UNIT/ML VIAL SQ SCH ×3 (06:15→21:14)
[2018-03-28 06:30] LABS: BUN/Creatinine Ratio 13 (6-26); Blood Urea Nitrogen 16 mg/dL (8-23); Calcium 9.5 mg/dL (8.6-10.3); Carbon Dioxide 27 mEq/L (23-29); Chloride 103 mEq/L (98-107); Glucose 115 mg/dL (70-105); Magnesium 2.1 mg/dL (1.6-2.6); Osmolality,Calculated 290 (280-300); Potassium 3.6 mEq/L (3.5-5.1); Sodium 139 mEq/L (136-145); eGFR For Non-African Americans 58 (> 60)
[2018-03-28] MEDS: Budesonide/Formoterol 80/4.5 MDI IH SCH ×2 (07:45→22:10)
[2018-03-28] MEDS: Furosemide 40 MG/4 ML VIAL IVP SCH ×2 (08:01→16:28)
[2018-03-28] MEDS: Loratadine 10 MG TABLET PO SCH (08:02)
[2018-03-28] MEDS: Aspirin Enteric Coated 81 MG Tablet PO SCH (08:02)
[2018-03-28] MEDS: Spironolactone 25 MG TABLET PO SCH (08:02)
--- NOTE | 2018-03-28 09:19 | Internal Med Progress Note ---
Date of Encounter: 03/28/18 Time of Encounter: 09:00 - Assessment and plan (1) Congestive heart failure Current Visit: Yes Status: Acute Assessment and plan: - Continues to have significant edema. Breathing has slowly improved. Will check for oxygen today and do noctural pulse ox as well. Qualifiers: Heart failure type: systolic Heart failure chronicity: acute on chronic Qualified Code(s): I50.23 - Acute on chronic systolic (congestive) heart failure (2) Hypokalemia Current Visit: Yes Status: Acute Assessment and plan: Resolved today. Following. (3) Non-ischemic cardiomyopathy Current Visit: No Status: Chronic Assessment and plan: EF much lower this time. Will need further cardiac follow up. Has AICD. (4) COPD (chronic obstructive pulmonary disease) Current Visit: No Status: Chronic Assessment and plan: -Not in exacerbation at this time. Continue PRN meds. Qualifiers: COPD type: emphysema Emphysema type: panlobular Qualified Code(s): J43.1 - Panlobular emphysema (5) Obesity Current Visit: Yes Status: Chronic Assessment and plan: -patient had a Hx of morbid obesity -patient endorses he has been trying to control his diet , eat less salt in his diet. it could partly be secondary to his weight gain from 330 to 356 in the last 2 months - education on better food choices Qualifiers: Obesity type: due to excess calories Obesity classification: adult class 3 (BMI >= 40) Serious obesity comorbidity presence: with serious comorbidity Body mass index: BMI 45.0-49.9 Qualified Code(s): E66.01 - Morbid (severe) obesity due to excess calories; Z68.42 - Body mass index (BMI) 45.0-49.9, adult (6) DVT prophylaxis Current Visit: Yes Status: Acute - Time Spent With Patient Total time spent is greater than 50% in coordination of care (as documented) at patient's floor/unit and/or counseling patient: - Subjective Interval history: Mr Gomez is currently admitted for acute exac CHF and severe cardiomyopathy. He remains moderate to high risk due to potential for worsening clinical status. Mr Gomez just ate breakfast. No fever or chills. Still edematous but breathing slowly improving. No CP. No diarrhea. Says he was to have sleep study sometime. - Constitutional Vitals: Temp Pulse Resp BP Pulse Ox 97.5 F L 88 18 101/77 96 03/28/18 06:34 03/28/18 06:34 03/28/18 07:45 03/28/18 06:34 03/28/18 07:45 General appearance: Present: A&O X 3, answers questions appropriately - Head Head exam: Present: normocephalic - Eye Eye exam: Present: EOMI, conjuntiva pink - ENT ENT exam: Present: mucous membranes moist - Respiratory Respiratory exam: Present: decreased breath sounds, CTAB. Absent: rales, rhonchi, wheezes - Cardiovascular Cardiovascular exam: Present: distant heart sounds. Absent: tachycardia - GI/Abdominal GI/Abdominal exam: Present: soft. Absent: tenderness - Extremities Exam Extremities exam: Present: warm Additional comments: Edema present. - Neurological Exam Neurological exam: Present: alert, oriented X3, no focal deficits - Skin Skin exam: Present: dry, warm Internal Medicine: Result - Labs CBC & Chem 7: 03/27/18 04:41 03/28/18 04:57 Labs: BMP 03/28/18 04:57 Sodium 139 Potassium 3.6 Chloride 103 Carbon Dioxide 27 BUN 16 Creatinine 1.27 Glucose 115 H Calcium 9.5 - ABG Interpretation ABG results: PT/INR, D-dimer PT 13.8 Seconds (9.4-12.1) H 03/24/18 16:37 Consult Discharge Plan - Plan Referrals: Virginie Everett MD [Primary Care Provider] -
[2018-03-29] MEDS: *HR* Heparin 5,000 UNIT/ML VIAL SQ SCH ×3 (05:32→21:56)
[2018-03-29] MEDS: Budesonide/Formoterol 80/4.5 MDI IH SCH ×2 (07:24→22:15)
[2018-03-29] MEDS: Spironolactone 25 MG TABLET PO SCH (08:22)
[2018-03-29] MEDS: Loratadine 10 MG TABLET PO SCH (08:22)
[2018-03-29] MEDS: Aspirin Enteric Coated 81 MG Tablet PO SCH (08:23)
[2018-03-29] MEDS: Furosemide 40 MG/4 ML VIAL IVP SCH ×2 (08:23→17:12)
--- NOTE | 2018-03-29 09:21 | Internal Med Progress Note ---
<LashaArmin Rosita - Last Filed: 03/29/18 18:58> Date of Encounter: 03/29/18 - Assessment and plan (1) Congestive heart failure Current Visit: Yes Status: Acute Qualifiers: Heart failure type: systolic Heart failure chronicity: acute on chronic Qualified Code(s): I50.23 - Acute on chronic systolic (congestive) heart failure (2) COPD (chronic obstructive pulmonary disease) Current Visit: No Status: Chronic Qualifiers: COPD type: emphysema Emphysema type: panlobular Qualified Code(s): J43.1 - Panlobular emphysema (3) DVT prophylaxis Current Visit: Yes Status: Acute (4) Non-ischemic cardiomyopathy Current Visit: No Status: Chronic (5) Obesity Current Visit: Yes Status: Chronic Qualifiers: Obesity type: due to excess calories Obesity classification: adult class 3 (BMI >= 40) Serious obesity comorbidity presence: with serious comorbidity Body mass index: BMI 45.0-49.9 Qualified Code(s): E66.01 - Morbid (severe) obesity due to excess calories; Z68.42 - Body mass index (BMI) 45.0-49.9, adult (6) Hypokalemia Current Visit: Yes Status: Acute - Time Spent With Patient Total time spent is greater than 50% in coordination of care (as documented) at patient's floor/unit and/or counseling patient: - Constitutional Vitals: Temp Pulse Resp BP Pulse Ox 97.8 F 86 16 86/72 92 03/29/18 14:51 03/29/18 14:51 03/29/18 14:51 03/29/18 17:19 03/29/18 14:51 Internal Medicine: Result - Labs CBC & Chem 7: 03/27/18 04:41 03/29/18 10:00 Labs: BMP 03/29/18 10:00 Sodium 138 Potassium 3.3 L Chloride 104 Carbon Dioxide 27 BUN 16 Creatinine 1.26 Glucose 186 H Calcium 9.5 - ABG Interpretation ABG results: PT/INR, D-dimer PT 13.8 Seconds (9.4-12.1) H 03/24/18 16:37 Consult Discharge Plan - Plan Referrals: Virginie Everett MD [Primary Care Provider] - - Attending Attestation I examined this patient and my medical decision-making was reviewed with the Resident Physician on 03/29/18. I agree with the documented findings, disposition and treatment plan as described except to the extent set forth below. Mr Gomez is currently in observation for acute exac CHF. He remains moderate to high risk due to potential for worsening clinical status. Mr Gomez is still having dyspnea and edema. He is reluctant to leave and most likely would return right away. No fever or chills. No CP. Exam alert Comfortable sitting at side of bed Mucus membranes dry Heart distant Decreased breath sounds Edema present I/P 1. Exac CHF Further diagnoses and plan as above. <Fabian Gil - Last Filed: 03/29/18 20:48> Date of Encounter: 03/29/18 Time of Encounter: 09:10 - Assessment and plan (1) Congestive heart failure Current Visit: Yes Status: Acute Assessment and plan: 03/29: - patient has a Hx of CHF s/p AICD, takes home lasix, spironolactone, Carvedilol - patient has a Hx for multiple admissions in the past for the same reason - Echocardiogram showed a left ventricular ejection fraction (LVEF) of 10-15%. His last EF was 30%. - We increased his lasix from 60 IV BID to TID - Has dry cough, 2+ pitting edema, Is/OS: 1080/2750 , Cumulative Is/OS: -[id number] - Monitor hemodynamic status in the morning. Qualifiers: Heart failure type: systolic Heart failure chronicity: acute on chronic Qualified Code(s): I50.23 - Acute on chronic systolic (congestive) heart failure (2) Hypokalemia Current Visit: Yes Status: Acute Assessment and plan: -Hypokalemia could be secondary to being continuously aggressively diuresed. - Patient endorses no weakness or muscle spasms. - Continue PO potassium as needed (3) COPD (chronic obstructive pulmonary disease) Current Visit: No Status: Chronic Assessment and plan: --Patient has a hx of COPD - takes 2 puffs of albuterol sulfate inhaler - endorses no change in the colour of sputum, or productive cough, or the frequency of cough - continue to monitor hemodynamic function -duonebs PRN Qualifiers: COPD type: emphysema Emphysema type: panlobular Qualified Code(s): J43.1 - Panlobular emphysema (4) Obesity Current Visit: Yes Status: Chronic Assessment and plan: -patient had a Hx of morbid obesity -patient endorses he has been trying to control his diet , eat less salt in his diet. it could partly be secondary to his weight gain from 330 to 356 in the last 2 months - education on better food choices Qualifiers: Obesity type: due to excess calories Obesity classification: adult class 3 (BMI >= 40) Serious obesity comorbidity presence: with serious comorbidity Body mass index: BMI 45.0-49.9 Qualified Code(s): E66.01 - Morbid (severe) obesity due to excess calories; Z68.42 - Body mass index (BMI) 45.0-49.9, adult (5) DVT prophylaxis Current Visit: Yes Status: Acute Assessment and plan: on heparin sub Q - Time Spent With Patient Total time spent is greater than 50% in coordination of care (as documented) at patient's floor/unit and/or counseling patient: - Subjective Interval history: 03/29: no acute events overnight. Patient is being diuresed on 60 IV lasix, still has 2+ pitting edema , cough , denies dyspnea, orthopnea, paroxysmal nocturnal dyspnea. Since he was hypokalemic , we started him on 40mEq KCL 03/26: no acute changes overnight. Patient's was A&O*3, he endorses decreased cough, improvement in his dyspnea, orthopnea, and paroxysmal nocturnal dyspnea. His pedal edema has reduced from 3 to 2+. He continues to be agressively diuresed on 40 mg IV Lasix. Because of his co-morbidities and multiple admission to the hospital for the same reason, we are going to continue to diurese him until he has achieved his baseline hemodynamic status 03/25: Mr Brownlee a 62 year is pleasant gentle man with a PMHx of CHF (s/p AICD) , COPD has been admitted to the hospital medicine service because of 3 weeks of progressively worsening orthopnea, SINGER and paroxysmal nocturnal dyspnea. He endorses he has gained 26 pounds in the last 2 months (330 to 356 pounds). Patient takes spironolactone 25 mg PO, furosemide 20 mg 3 times a day, carvedilol to 3.125 by mouth for many years. He endorses that his PCP recently increased his Lasix from 20 mg twice a day 20 mg 3 times a day but that did not help. Patient endorses that he has been trying to eat less salt in his diet and restrict the amount of fluid he takes to less than 1.5 L that has not been helping. He endorses increase in his dry cough for the last 4-5 weeks. Patient has no history of myocardial infarction, Patient presented to the hospital with similar complaints in January 2018. He was noted to be in acute CHF. Prior to that episode he has been hospitalized twice in the past for CHF, and he improved clinically after aggressive IV diuresis. Of note, he had a recent heart catheterization revealing normal coronary arteries but he does have a dilated cardiomyopathy with an EF of 30-45%. The patient was in no acute distress when i saw him. He's currently on 40 mg IV lasix . He says his been feeling better ever since he came here to the hospital. Dyspnea, orthopnea seems to be relatively better than yesterday.no acute ev - Constitutional Vitals: Temp Pulse Resp BP Pulse Ox 98.5 F 92 16 105/75 96 03/29/18 07:00 03/29/18 07:00 03/29/18 07:25 03/29/18 07:00 03/29/18 07:25 General appearance: Present: A&O X 3, answers questions appropriately - Head Head exam: Present: atraumatic, normal inspection, normocephalic - Respiratory Additional comments: CTAB, no ronchi, wheezing , dry cough - Cardiovascular Additional comments: no JVD, no S3 sounds, RRR, - GI/Abdominal Additional comments: Soft, nontender, non-distended, no organomegaly - Extremities Exam Additional comments: 2+ pitting edema, pulses symmetrical bilaterally, ROM compromised due to morbid obesity Internal Medicine: Result - Labs CBC & Chem 7: 03/27/18 04:41 03/29/18 10:00 - ABG Interpretation ABG results: PT/INR, D-dimer PT 13.8 Seconds (9.4-12.1) H 03/24/18 16:37
[2018-03-29 10:51] LABS: BUN/Creatinine Ratio 13 (6-26); Blood Urea Nitrogen 16 mg/dL (8-23); Calcium 9.5 mg/dL (8.6-10.3); Carbon Dioxide 27 mEq/L (23-29); Chloride 104 mEq/L (98-107); Glucose 186 mg/dL (70-105); Osmolality,Calculated 292 (280-300); Potassium 3.3 mEq/L (3.5-5.1); Sodium 138 mEq/L (136-145); eGFR For Non-African Americans 58 (> 60)
[2018-03-29] MEDS ORDERED: Furosemide 40 MG/4 ML VIAL IVP ONE (20:00)
[2018-03-30] MEDS: *HR* Heparin 5,000 UNIT/ML VIAL SQ SCH ×2 (05:26→15:00)
[2018-03-30 05:39] LABS: Basophils % 0.3 %; Eosinophils # 0.1 K/mcL (0.0-0.6); Eosinophils % 1.7 %; Hemoglobin 13.8 g/dL (12.9-16.9); Immature Granulocytes % 0.4 % (0-4); Lymphocytes # 1.3 K/mcL (0.6-4.6); Lymphocytes % 17.8 %; Mean Corpuscular HGB Conc 32.9 g/dL (31.6-35.5); Mean Corpuscular Hemoglobin 29.9 pg (28.0-33.3); Mean Corpuscular Volume 90.9 fL (83.0-100.0); Mean Platelet Volume 11.1 fL (9.4-12.4); Monocytes # 0.7 K/mcL (0.0-1.3); Monocytes % 9.7 %; Neutrophils # 5.3 K/mcL (1.6-8.9); Platelet Count 162 K/mcL (140-400); Red Blood Count 4.62 M/mcL (4.19-5.50); Segmented Neutrophils % 70.1 %
[2018-03-30 05:54] LABS: BUN/Creatinine Ratio 15 (6-26); Blood Urea Nitrogen 17 mg/dL (8-23); Calcium 9.3 mg/dL (8.6-10.3); Carbon Dioxide 25 mEq/L (23-29); Chloride 106 mEq/L (98-107); Glucose 109 mg/dL (70-105); Osmolality,Calculated 288 (280-300); Potassium 3.9 mEq/L (3.5-5.1); Sodium 138 mEq/L (136-145); eGFR For Non-African Americans > 60 (> 60)
[2018-03-30] MEDS: Budesonide/Formoterol 80/4.5 MDI IH SCH (07:35)
[2018-03-30] MEDS: Spironolactone 25 MG TABLET PO SCH (09:19)
[2018-03-30] MEDS: Furosemide 40 MG/4 ML VIAL IVP SCH (09:19)
[2018-03-30] MEDS: Loratadine 10 MG TABLET PO SCH (09:19)
[2018-03-30] MEDS: Aspirin Enteric Coated 81 MG Tablet PO SCH (09:19)
--- NOTE | 2018-03-30 15:15 | Discharge Summary ---
<Fabian Gil - Last Filed: 03/30/18 16:23> - NOTES TO OUTPATIENT PROVIDER Notes to Outpatient Provider: - increased his aldactone from 20 to 50 mg. - increased his lasix to 40 mg BID. - follow up with Dr. Quezada as an out patient Date of Encounter: 03/30/18 Time of Encounter: 10:30 - Discharge Diagnosis (1) Congestive heart failure Priority: Primary Status: Acute Qualifiers: Heart failure type: systolic Heart failure chronicity: acute on chronic Qualified Code(s): I50.23 - Acute on chronic systolic (congestive) heart failure (2) COPD (chronic obstructive pulmonary disease) Priority: Secondary Status: Chronic Qualifiers: COPD type: emphysema Emphysema type: panlobular Qualified Code(s): J43.1 - Panlobular emphysema (3) Obesity Priority: Secondary Status: Chronic Qualifiers: Obesity type: due to excess calories Obesity classification: adult class 3 (BMI >= 40) Serious obesity comorbidity presence: with serious comorbidity Body mass index: BMI 45.0-49.9 Qualified Code(s): E66.01 - Morbid (severe) obesity due to excess calories; Z68.42 - Body mass index (BMI) 45.0-49.9, adult (4) DVT prophylaxis Priority: Secondary Status: Acute (5) Hypokalemia Priority: Secondary Status: Acute Hospital course: Mr. Gomez is a 62 year old male with a past medical history of CHF (s/p AICD ), COPD who was admitted to the hospital medicine service on 03/24 because of 3 weeks of progressively worsening orthopnea, SINGER, paroxysmal nocturnal dyspnea and increase in his dry nonproductive cough. He has had multiple admissions in the past for his CHF symptoms. He endorsed he gained 26 pounds in the last 2 months (330 to 356 pounds). Patient takes spironolactone 25 mg PO, furosemide 20 mg 3 times a day, carvedilol to 3.125 by mouth for many years. His most recent echocardiogram at the hospital showed that his ejection fraction went down from 35% to 10%. During the course of his hospital stay, we aggressively diuresed him with furosemide 40 mg IVP, and eventually went up on his laxis to 60 mg IVP. His symptoms eventually started to return to his baseline with less dyspnea, orthopnea, cough, and pitting edema decreasing from 3 to 2+ in physical exam. We increased his Aldactone to 50 mg, and Lasix to 40 mg BID. He was dependent upon 2L of oxygen at night , therefore we are discharging him on 2L of O2 to be used nocturnally. Patient has been instructed to track his daily fluid intake and reduce / eliminate sodium in his diet. Patient has also been advised to eat a healthy diet that is low in saturated fat, trans fat and cholesterol. He has been advised to follow up with his Hospice Educator as an out-patient - Time Spent with Patient Total time spent providing and/or coordinating discharge services: - Discharge Medications Prescriptions: Furosemide [Lasix] 20 mg PO BID #120 tablet Spironolactone [Aldactone] 50 mg PO DAILY #30 tablet Home Medications: Albuterol Sulfate [Albuterol Inhaler] 2 puff IH Q4HR PRN 01/17/18 [History] Aspirin [Adult Aspirin Regimen] 81 mg PO DAILY 01/17/18 [History] Atorvastatin [Lipitor] 40 mg PO HS 01/17/18 [History] Carvedilol 3.125 mg PO BID 01/17/18 [History] Fluticasone Propionate Nasal [Flonase] 2 spr NS DAILY PRN 01/17/18 [History] Fluticasone/Salmeterol [Advair Hfa 115-21 Mcg Inhaler] 2 puff IH BID PRN [History] Lisinopril [Zestril] 10 mg PO DAILY 01/17/18 [History] Loratadine [Allergy Relief] 10 mg PO DAILY 01/17/18 [History] Montelukast [Singulair] 10 mg PO HS 01/17/18 [History] Furosemide [Lasix] 20 mg PO BID #120 tablet 03/30/18 [Rx] Spironolactone [Aldactone] 50 mg PO DAILY #30 tablet 03/30/18 [Rx] Allergies/Adverse Reactions: 3 Allergy/AdvReac Type Severity Reaction Status Date / Time penicillin V Allergy Severe See Verified 03/24/18 10:45 Comments Penicillins Allergy Severe Anaphylaxis Verified 03/24/18 11:41 Date of admission: 03/24/18 20:10 Primary care physician: Virginie Everett MD Consults: 03/29/18 11:56 Consult to Nutrition [CONS] Routine Comment: new diagnosis CHF Consulting Provider: NUTRITION Reason for Dietary Consult: Diet Education - Constitutional Vitals: Temp Pulse Resp BP Pulse Ox 97.5 F L 98 16 114/53 93 03/30/18 10:58 03/30/18 10:58 03/30/18 10:58 03/30/18 10:58 03/30/18 10:58 General appearance: Present: A&O X 3, answers questions appropriately - Head Head exam: Present: atraumatic, normal inspection, normocephalic - Respiratory Additional comments: CTAB, no ronchi, wheezing - Cardiovascular Additional comments: no JVD, no S3 sounds, RRR, - GI/Abdominal Additional comments: Soft, nontender, non-distended, no organomegaly - Extremities Exam Additional comments: 2+ pitting edema, pulses symmetrical bilaterally, ROM compromised due to morbid obesity - Patient Status Disposition: Home, Self-Care Condition: Good Functional capacity at discharge: independent ambulation Overall status at discharge: patient is progressing back to baseline - Discharge Instructions Instructions: Heart Failure (DC), Chronic Obstructive Pulmonary Disease (DC) Follow Up With: Virginie Everett MD [Primary Care Provider] - 04/08/18 11:00 am - Diet and Activity Activity: increase activity as tolerated, wear oxygen at night Diet: low fat, low cholesterol, low salt diet, other <Fanny Macias - Last Filed: 03/30/18 16:43> Date of Encounter: 03/30/18 - Discharge Diagnosis (1) Congestive heart failure Status: Acute Qualifiers: Heart failure type: systolic Heart failure chronicity: acute on chronic Qualified Code(s): I50.23 - Acute on chronic systolic (congestive) heart failure (2) COPD (chronic obstructive pulmonary disease) Status: Chronic Qualifiers: COPD type: emphysema Emphysema type: panlobular Qualified Code(s): J43.1 - Panlobular emphysema (3) DVT prophylaxis Status: Acute (4) Obesity Status: Chronic Qualifiers: Obesity type: due to excess calories Obesity classification: adult class 3 (BMI >= 40) Serious obesity comorbidity presence: with serious comorbidity Body mass index: BMI 45.0-49.9 Qualified Code(s): E66.01 - Morbid (severe) obesity due to excess calories; Z68.42 - Body mass index (BMI) 45.0-49.9, adult (5) Hypokalemia Status: Acute Hospital course: Mr. Gomez is a 62 year old male - Time Spent with Patient Total time spent providing and/or coordinating discharge services: Date of admission: 03/24/18 20:10 Primary care physician: Virginie Everett MD Consults: 03/29/18 11:56 Consult to Nutrition [CONS] Routine Comment: new diagnosis CHF Consulting Provider: NUTRITION Reason for Dietary Consult: Diet Education - Constitutional Vitals: Temp Pulse Resp BP Pulse Ox 97.7 F 89 16 92/71 97 03/30/18 15:17 03/30/18 15:17 03/30/18 15:17 03/30/18 15:17 03/30/18 15:17 - Attending Attestation I examined this patient and my medical decision-making was reviewed with the Resident Physician Dr. Gil. I agree with the documented findings, disposition and treatment plan as described except to the extent set forth below. Mr. Gomez is a 62 year old male with a past medical history of CHF (s/p AICD ), COPD who was admitted here for worsening SOB and b/l LE edema. He was started on aggressive IV diuresis due to his worsening CHF exacerbation. Pt sympotms improved now. So will d.c him home in stable condition with Lasix 40 PO BID and Inc Aldactone to 50mg PO Daily. Since his EF seems to be worsening recommend to f/u with Card as an out pt. Gen: A, A, O x3 Chest: Diminished BS b/l, mild crackles Heart: S1S2+ RRR
[2018-03-30 15:21] VITALS: BP 92/71
== END 2018-03-30 16:12 | disposition home or self-care (01) ==
LOC: 2NENU 11:19 → EMEROO 11:19 → SUATTDRO 20:10 → 2NENU 20:59
PROVIDERS: ADMIT Internal Medicine; ATTEND Family Medicine

== ENCOUNTER 2018-04-08 12:58 | Inpatient (IN) ==
[2018-04-08 13:47] LABS: Basophils % 0.4 %; Eosinophils # 0.1 K/mcL (0.0-0.6); Eosinophils % 1.4 %; Hematocrit 46.3 % (37.5-50.1); Hemoglobin 15.2 g/dL (12.9-16.9); Immature Granulocytes % 0.3 % (0-4); Lymphocytes # 1.4 K/mcL (0.6-4.6); Lymphocytes % 17.9 %; Mean Corpuscular HGB Conc 32.8 g/dL (31.6-35.5); Mean Corpuscular Hemoglobin 29.6 pg (28.0-33.3); Mean Corpuscular Volume 90.3 fL (83.0-100.0); Mean Platelet Volume 10.2 fL (9.4-12.4); Monocytes # 0.7 K/mcL (0.0-1.3); Monocytes % 9.2 %; Neutrophils # 5.5 K/mcL (1.6-8.9); Platelet Count 277 K/mcL (140-400); Red Blood Count 5.13 M/mcL (4.19-5.50); Red Cell Distribution Width 14.6 % (11.5-14.5); Segmented Neutrophils % 70.8 %
[2018-04-08 14:09] LABS: Albumin 3.9 g/dL (3.5-5.7); Albumin/Globulin Ratio 1.3 (1.1-2.2); Bilirubin,Total 1.5 mg/dL (0.3-1.0); Calcium 9.8 mg/dL (8.6-10.3); Globulin 2.9 g/dL (2.4-3.5); Total Protein 6.8 g/dL (6.4-8.9)
[2018-04-08 14:13] LABS: Troponin I 0.06 ng/mL (< 0.04)
--- NOTE | 2018-04-08 14:31 | Emergency Department Note ---
Disposition Clinical Impression: CHF (congestive heart failure) Qualifiers: Heart failure type: unspecified Heart failure chronicity: acute on chronic Qualified Code(s): I50.9 - Heart failure, unspecified Disposition: Admitted As Inpatient Condition: Good Instructions: Heart Failure (ED) Referrals: Virginie Everett MD [Primary Care Provider] - Forms: ED Satisfaction Letter Time of Disposition: 19:23 SOB HPI - General Chief Complaint: ED Shortness of Breath/Dyspnea Stated Complaint: CAROLANN, dizziness, CHF Time Seen by Provider: 04/08/18 14:18 Source: patient Mode of arrival: ambulatory Limitations: no limitations - History of Present Illness This is a 63-year-old male with history of CHF and COPD who comes to the emergency department from his doctor's office stating that at the doctor's office he felt short of breath and lightheaded. He reports gradual worsening of shortness of breath with exertion since discharge from the hospital on 2017. He states that he had an echocardiogram that showed an ejection fraction of only 10%, decreased from 30% before. He reports increased swelling in his abdomen and also in his legs. He feels fine when at rest, but quickly gets dyspneic with minimal exertion. Pt Subjective Complaint: shortness of breath, cough Onset (ago): day(s) - Related Data Home Medications Medication Instructions Recorded Confirmed Albuterol Sulfate [Albuterol 2 puff IH Q4HR PRN 01/17/18 04/08/18 Inhaler] Aspirin [Adult Aspirin Regimen] 81 mg PO DAILY 01/17/18 04/08/18 Atorvastatin [Lipitor] 40 mg PO 01/17/18 04/08/18 Carvedilol 3.125 mg PO BID 01/17/18 04/08/18 Fluticasone Propionate Nasal 2 spr NS DAILY PRN 01/17/18 04/08/18 [Flonase] Fluticasone/Salmeterol [Advair Hfa 2 puff IH BID PRN 01/17/18 04/08/18 115-21 Mcg Inhaler] Loratadine [Allergy Relief] 10 mg PO DAILY 01/17/18 04/08/18 Montelukast [Singulair] 10 mg PO HS 01/17/18 04/08/18 Furosemide [Lasix] 40 mg PO BID 04/08/18 04/08/18 Ipratropium/Albuterol Neb [Duoneb] 3 ml IH TID 04/08/18 04/08/18 Previous Rx's Medication Instructions Recorded Spironolactone [Aldactone] 50 mg PO DAILY #30 tablet 03/30/18 Allergies Allergy/AdvReac Type Severity Reaction Status Date / Time penicillin V Allergy Severe See Verified 04/08/18 16:28 Comments Penicillins Allergy Severe Anaphylaxis Verified 04/08/18 16:28 All systems ED: reviewed and negative except as stated. Constitutional: Denies: fever, chills, weakness, weight change Eyes: Denies: eye pain, eye discharge, vision change Cardiovascular: Reports: dyspnea on exertion Gastrointestinal: Denies: abdominal pain, nausea, vomiting, diarrhea, constipation, hematemesis, melena, hematochezia Musculoskeletal: Denies: back pain, neck pain, arthralgia, myalgia Integumentary: Denies: rash, abrasion, lesions Neurological: Denies: headache, weakness, numbness, paresthesias, confusion, abnormal gait, vertigo Psychiatric: Denies: anxiety, depression, suicidal thoughts, homicidal thoughts , auditory hallucinations, visual hallucinations Endocrine: Denies: fatigue Hematological/Lymphatic: Denies: easy bleeding, easy bruising Allergic/Immunologic: Denies: facial swelling, urticaria Past Medical History - Past Medical History Medical history: Reports: atrial fibrillation, cardiomyopathy, CHF, COPD, hypertension Surgical history: Reports: other, AICD Psychiatric history: Reports: no psych history - Social History Smoking Status: Never smoker Smokeless Tobacco Status: No Alcohol use: Reports: none Drug use: Reports: none Physical Exam - General Limitations: no limitations General appearance: alert - Head Head exam: atraumatic, normocephalic, normal inspection - Eye Eye exam: Present: normal appearance, PERRL, EOMI - Neck Neck exam: Present: normal inspection, full ROM, trachea midline - Chest Chest inspection: Present: normal inspection, symmetric chest wall rise - Respiratory Respiratory exam: Present: other (Breath sounds are decreased in all anguiano, almost inaudible in the bases, with bilateral rhonchi and apices) - Abdominal Exam Abdominal exam: Present: soft, Non-Tender, distention - Extremities Exam Extremities exam: Present: pedal edema (3+ bilateral pedal edema to the proximal calves) - Neurological Exam Neurological exam: Present: alert, oriented X3 - Psychiatric Psychiatric exam: Present: normal affect, normal mood - Skin Skin exam: Present: warm, dry, intact, normal color, other (There is mild erythema of the abdominal wall diffusely) Course Course Narrative: This is a 63-year-old male with shortness of breath with exertion, concerning for CHF exacerbation or acute coronary syndrome. Vital Signs Temperature 98.2 F 04/08/18 13:14 Pulse Rate 50 04/08/18 13:14 Respiratory Rate 20 04/08/18 13:14 Blood Pressure 100/67 04/08/18 13:14 O2 Sat by Pulse Oximetry 92 04/08/18 13:14 Temperature 98.2 F 04/08/18 14:25 Pulse Rate 84 04/08/18 17:48 Respiratory Rate 16 04/08/18 17:48 Blood Pressure 94/75 04/08/18 17:48 O2 Sat by Pulse Oximetry 95 04/08/18 17:48 Oxygen Delivery Oxygen Delivery Nasal Cannula Shortness of Breath/Dyspnea - [facility] Narrative Medical decision making narrative: This is a 63-year-old male who appears to have a CHF exacerbation. I discussed his case with the on-call hospitalist, who accepted him for admission. Symptomatic treatment was initiated here. - Lab Data Lab results reviewed: Yes I reviewed the patient's lab results. Lab results narrative: CBC was unremarkable BMP showed creatinine elevated at 1.51 LFTs showed bilirubin slightly elevated at 1.5 BNP was elevated at 1117 Troponin was slightly elevated at 0.06 Result diagrams: 04/08/18 13:37 04/08/18 13:37 Lab Results 04/08/18 04/08/18 04/08/18 Range/Units 13:37 13:37 13:37 WBC (4.3-11.1) K/mcL RBC (4.19-5.50) M/mcL Hgb (12.9-16.9) g/dL Hct (37.5-50.1) % MCV (83.0-100.0) fL MCH (28.0-33.3) pg MCHC (31.6-35.5) g/dL RDW (11.5-14.5) % Plt Count (140-400) K/mcL MPV (9.4-12.4) fL Immature Gran % (0-4) % Seg Neutrophils % % Lymphocytes % % Monocytes % % Eosinophils % % Basophils % % Neutrophils # (1.6-8.9) K/mcL Lymphocytes # (0.6-4.6) K/mcL Monocytes # (0.0-1.3) K/mcL Eosinophils # (0.0-0.6) K/mcL Basophils # (0.0-0.2) K/mcL Sodium 137 (136-145) mEq/L Potassium 4.0 (3.5-5.1) mEq/L Chloride 105 (98-107) mEq/L Carbon Dioxide 25 (23-29) mEq/L BUN 15 (8-23) mg/dL Creatinine 1.51 H (0.70-1.30) mg/dL Est GFR ( Amer) 57 L (> 60) Est GFR (Non-Af Amer) 47 L (> 60) BUN/Creatinine Ratio 10 (6-26) Glucose 120 H (70-105) mg/dL Calculated Osmolality 286 (280-300) Lactic Acid 1.1 (0.5-2.2) mmol/L Calcium 9.8 (8.6-10.3) mg/dL Total Bilirubin 1.5 H (0.3-1.0) mg/dL AST 19 (13-39) Units/L ALT 22 (7-52) Units/L Alkaline Phosphatase 83 (34-104) Units/L Troponin I 0.06 H* (< 0.04) ng/mL B-Natriuretic Peptide 1117 H (Less than 100) pg/mL Serum Total Protein 6.8 (6.4-8.9) g/dL Albumin 3.9 (3.5-5.7) g/dL Globulin 2.9 (2.4-3.5) g/dL Albumin/Globulin Ratio 1.3 (1.1-2.2) 04/08/18 Range/Units 13:37 WBC 7.8 (4.3-11.1) K/mcL RBC 5.13 (4.19-5.50) M/mcL Hgb 15.2 (12.9-16.9) g/dL Hct 46.3 (37.5-50.1) % MCV 90.3 (83.0-100.0) fL MCH 29.6 (28.0-33.3) pg MCHC 32.8 (31.6-35.5) g/dL RDW 14.6 H (11.5-14.5) % Plt Count 277 (140-400) K/mcL MPV 10.2 (9.4-12.4) fL Immature Gran % 0.3 (0-4) % Seg Neutrophils % 70.8 % Lymphocytes % 17.9 % Monocytes % 9.2 % Eosinophils % 1.4 % Basophils % 0.4 % Neutrophils # 5.5 (1.6-8.9) K/mcL Lymphocytes # 1.4 (0.6-4.6) K/mcL Monocytes # 0.7 (0.0-1.3) K/mcL Eosinophils # 0.1 (0.0-0.6) K/mcL Basophils # 0.0 (0.0-0.2) K/mcL Sodium (136-145) mEq/L Potassium (3.5-5.1) mEq/L Chloride (98-107) mEq/L Carbon Dioxide (23-29) mEq/L BUN (8-23) mg/dL Creatinine (0.70-1.30) mg/dL Est GFR ( Amer) (> 60) Est GFR (Non-Af Amer) (> 60) BUN/Creatinine Ratio (6-26) Glucose (70-105) mg/dL Calculated Osmolality (280-300) Lactic Acid (0.5-2.2) mmol/L Calcium (8.6-10.3) mg/dL Total Bilirubin (0.3-1.0) mg/dL AST (13-39) Units/L ALT (7-52) Units/L Alkaline Phosphatase (34-104) Units/L Troponin I (< 0.04) ng/mL B-Natriuretic Peptide (Less than 100) pg/mL Serum Total Protein (6.4-8.9) g/dL Albumin (3.5-5.7) g/dL Globulin (2.4-3.5) g/dL Albumin/Globulin Ratio (1.1-2.2) - Radiology Data Radiology results reviewed: Yes I reviewed the patient's radiology results. Chest x-ray was interpreted as showing mild venous congestion. - EKG Data EKG attestation: Yes I reviewed and interpreted this EKG. EKG results narrative: ECG shows sinus rhythm with first-degree AV block, PVCs, left bundle branch block, 91 bpm, borderline long QT, slight ST depressions in V4 through V6, seen on prior EKG of 03/24/2018
[2018-04-08] MEDS ORDERED: Aspirin 81 MG TAB.CHEW PO ONE (14:36)
[2018-04-08] MEDS ORDERED: Ipratropium/Albuterol Neb 3 ML IH ONE (14:53)
[2018-04-08] MEDS ORDERED: Furosemide 40 MG/4 ML VIAL IVP ONE (16:00)
[2018-04-08] MEDS ORDERED: Naloxone 0.4 MG/ML INJ IVP PRN (19:56)
--- NOTE | 2018-04-08 21:10 | Internal Med History&Physical ---
Date of Encounter: 04/08/18 Time of Encounter: 21:00 Internal Medicine - H&P: HPI Chief complaint: Shortness of breath and swelling of 3 days duration History of present illness: Mr. Gomez is a 63 year old male with pm h of COPD, hypertension, systolic cHF s/p ICD placement with EF of 10% presenting with complaints of shortness of breath of 3 days duration and lower extremity swelling. Patient was recently in the hospital for acute CHF exacerbation and was discharged about a week ago. He was sent home on BID lasix and increased dose of spironolactone. Patient says he has been compliant with his meds and diet. He noted worsening shortness of breath, coughing and decrease exercise tolerance over the last 3 days acutely worsening in the last 24hours. He went to his pCP today who advised him to come to the ER. In the ER, cxr showed vascular congestion and he had an elevated proBNP. he was given one dose of Iv lasix Past Med Surg Social Fam HX - Past Medical History Medical history: atrial fibrillation, cardiomyopathy, CHF, COPD, hypertension Additional medical history: unspecified heart problem Psychiatric history: no psych history - Past Surgical History Surgical History: other, AICD Additional surgical history: AICD - Social History Smoking Status: Never smoker Smokeless Tobacco Status: No Alcohol use: none Drug use: none - Family History Father Living Status: Still Living Hx Family Cardiac Disorders: Yes (cabg) Hx Family Endocrine Disorder: Yes (dm) Internal Medicine - H&P: Meds Albuterol Sulfate [Albuterol Inhaler] 2 puff IH Q4HR PRN 01/17/18 [History] Aspirin [Adult Aspirin Regimen] 81 mg PO DAILY 01/17/18 [History] Atorvastatin [Lipitor] 40 mg PO HS 01/17/18 [History] Carvedilol 3.125 mg PO BID 01/17/18 [History] Fluticasone Propionate Nasal [Flonase] 2 spr NS DAILY PRN 01/17/18 [History] Fluticasone/Salmeterol [Advair Hfa 115-21 Mcg Inhaler] 2 puff IH BID PRN [History] Loratadine [Allergy Relief] 10 mg PO DAILY 01/17/18 [History] Montelukast [Singulair] 10 mg PO HS 01/17/18 [History] Spironolactone [Aldactone] 50 mg PO DAILY #30 tablet 03/30/18 [Rx] Furosemide [Lasix] 40 mg PO BID 04/08/18 [History] Ipratropium/Albuterol Neb [Duoneb] 3 ml IH TID 04/08/18 [History] 3 Allergy/AdvReac Type Severity Reaction Status Date / Time penicillin V Allergy Severe See Verified 04/08/18 16:28 Comments Penicillins Allergy Severe Anaphylaxis Verified 04/08/18 16:28 All Systems PM: A 10-system review of systems was performed and is negative for pertinent findings except as documented above in the HPI. - Constitutional Constitutional: fatigue, no chills, no fever(s), no night sweats - EENT Eyes: no change in vision, no discharge, no pain, no photophobia Ears: no ear discharge, no ear pain, no tinnitus Nose, mouth and throat: no dysphagia, no nasal discharge, no neck pain, no sore throat - Cardiovascular Cardiovascular ROS IM: dyspnea, dyspnea on exertion, orthopnea, no chest pain, no diaphoresis, no lightheadedness, no palpitations, no syncope - Respiratory Respiratory: cough, no dyspnea, no wheezing, no excessive phlegm production - Gastrointestinal Gastrointestinal: no abdominal pain, no diarrhea, no hematemesis, no hematochezia, no melena, no nausea, no vomiting - Musculoskeletal Musculoskeletal ROS IM: no numbness, no tingling - Integumentary Integumentary IM: no rash, no unusual bruising - Neurological Neurological ROS: no confusion, no convulsions, no focal weakness, no numbness, no tingling, no tremor(s) - Hematologic/Lymphatic Hematologic/Lymphatic: no easy bruising - Constitutional Vitals: Temp Pulse Resp BP Pulse Ox 97.7 F 52 18 106/74 97 04/08/18 20:31 04/08/18 20:31 04/08/18 20:31 04/08/18 20:31 04/08/18 20:31 - Head Head exam: Present: atraumatic, normocephalic - Eye Eye exam: Present: PERRL, conjuntiva pink, sclera anicteric Pupils: Present: PERRL - Neck Neck exam general surgery: Present: supple, trachea midline. Absent: lymphadenopathy - Respiratory Respiratory exam: Present: CTAB. Absent: accessory muscle use, rales, rhonchi, wheezes - Cardiovascular Cardiovascular exam: Present: RRR, +S1, +S2. Absent: diastolic murmur, gallop, rubs, systolic murmur - GI/Abdominal GI/Abdominal exam: Present: normal bowel sounds, soft, no peritoneal signs. Absent: distended, tenderness - Extremities Exam Extremities exam: Present: pedal edema, warm, radial pulses palpable and symmetrical. Absent: calf tenderness, cyanotic - Neurological Exam Neurological exam: Present: CN II-XII intact, oriented X3, no focal deficits. Absent: pronater drift, facial droop, speech deficit - Skin Skin exam: Present: dry, intact Internal Med - H&P Results - Labs CBC & Chem 7: 04/08/18 13:37 04/08/18 13:37 - Assessment and plan (1) Systolic CHF, acute on chronic Current Visit: No Status: Acute Assessment and plan: Last EF was 10 % on echo this month. Pt has elevated BNP and vascular congestion with pitting edema bilaterally. Will start on lasix IV BID. Resume home dose of spironolactone. Monitor ins and outs. Continue beta munira (2) COPD (chronic obstructive pulmonary disease) Current Visit: No Status: Chronic Assessment and plan: No acute exacerbation. nebs PRN Qualifiers: COPD type: emphysema Emphysema type: panlobular Qualified Code(s): J43.1 - Panlobular emphysema (3) Elevated troponin Current Visit: No Status: Acute Assessment and plan: Likely demand. troponins were mildly elevated at 0.06. Denies any chest pain, has previous troponins higher than 0.06. Will monitor (4) Morbid obesity with BMI of 45.0-49.9, adult Current Visit: No Status: Chronic Assessment and plan: diet and exercise (5) DVT prophylaxis Current Visit: No Status: Acute Assessment and plan: heparin sc (6) KAMERON (acute kidney injury) Current Visit: No Status: Acute Assessment and plan: Likely secondary to congestion. Diurese and monitor creatinine - Time Spent With Patient Total time spent is greater than 50% in coordination of care (as documented) at patient's floor/unit and/or counseling patient:
[2018-04-08] MEDS: Budesonide/Formoterol 80/4.5 MDI IH SCH (22:35)
[2018-04-08] MEDS: Furosemide 40 MG/4 ML VIAL IVP SCH (23:48)
[2018-04-09] MEDS: Ipratropium/Albuterol Neb 3 ML IH SCH ×4 (03:45→23:46)
[2018-04-09 04:48] LABS: Basophils % 0.4 %; Eosinophils # 0.1 K/mcL (0.0-0.6); Eosinophils % 1.3 %; Hematocrit 45.6 % (37.5-50.1); Hemoglobin 14.9 g/dL (12.9-16.9); Immature Granulocytes % 0.5 % (0-4); Lymphocytes # 1.6 K/mcL (0.6-4.6); Lymphocytes % 17.9 %; Mean Corpuscular HGB Conc 32.7 g/dL (31.6-35.5); Mean Corpuscular Hemoglobin 29.1 pg (28.0-33.3); Mean Corpuscular Volume 89.1 fL (83.0-100.0); Mean Platelet Volume 10.2 fL (9.4-12.4); Monocytes # 0.7 K/mcL (0.0-1.3); Monocytes % 8.1 %; Neutrophils # 6.6 K/mcL (1.6-8.9); Platelet Count 281 K/mcL (140-400); Red Blood Count 5.12 M/mcL (4.19-5.50); Red Cell Distribution Width 14.6 % (11.5-14.5); Segmented Neutrophils % 71.8 %
[2018-04-09 05:04] LABS: Calcium 9.6 mg/dL (8.6-10.3); Magnesium 2.2 mg/dL (1.6-2.6); Phosphorous 4.2 mg/dL (2.7-4.5); Potassium 3.8 mEq/L (3.5-5.1)
[2018-04-09] MEDS: Aspirin Enteric Coated 81 MG Tablet PO SCH (08:07)
[2018-04-09] MEDS: Furosemide 40 MG/4 ML VIAL IVP SCH ×2 (08:07→17:58)
[2018-04-09] MEDS: Budesonide/Formoterol 80/4.5 MDI IH SCH ×2 (10:27→23:46)
--- NOTE | 2018-04-09 12:16 | Internal Med Progress Note ---
Hospitalist Progress Note - Encounter Date of Encounter: 04/09/18 Time of Encounter: 14:29 - Subjective Interval History: Seen and examined at the bedside with his partner He is admitted and being managed for acute kidney failure as well as CHF exacerbation He is diuressing well and denies any new symptoms at this time On presentation, he had required O2 supplementation, this seemed to have resolved at my time of evaluation - Exam Vitals: Temp Pulse Resp BP Pulse Ox 97.9 F 90 16 104/72 92 04/09/18 11:29 04/09/18 11:29 04/09/18 11:29 04/09/18 11:29 04/09/18 11:29 - Assessment and Plan (1) KAMERON (acute kidney injury) Current Visit: Yes Status: Acute Assessment and Plan: Improving Likely cardio-renal Continue diuresis Continue to monitor chem (2) COPD (chronic obstructive pulmonary disease) Current Visit: Yes Status: Chronic Assessment and Plan: No acute exacerbation. nebs PRN (3) DVT prophylaxis Current Visit: Yes Status: Acute Assessment and Plan: heparin sq (4) Systolic CHF, acute on chronic Current Visit: Yes Status: Acute Assessment and Plan: Last EF was 10 % on echo this month. Pt has elevated BNP and vascular congestion with pitting edema bilaterally. Continue BB, ACEI Continue spironolactone Continue lasix IV I/O -1L Continue daily weights, fluid restriction, telemetry, strict I and Os (5) Morbid obesity with BMI of 45.0-49.9, adult Current Visit: Yes Status: Chronic Assessment and Plan: diet and exercise (6) Elevated troponin Current Visit: Yes Status: Acute Assessment and Plan: Likely demand. troponins were mildly elevated at 0.06. Denies any chest pain, has previous troponins higher than 0.06. Continue to monitor No chest pain - Time Spent with Patient Total time spent is greater than 50% in coordination of care (as documented) at patient's floor/unit and/or counseling patient: Plan of Care Discussed with: patient Internal Medicine: Result - Labs CBC & Chem 7: 04/09/18 04:28 04/09/18 04:28 Labs: Short CBC 04/09/18 Range/Units 04:28 WBC 9.2 (4.3-11.1) K/mcL Hgb 14.9 (12.9-16.9) g/dL Hct 45.6 (37.5-50.1) % Plt Count 281 (140-400) K/mcL Neutrophils # 6.6 (1.6-8.9) K/mcL BMP 04/09/18 04:28 Sodium 138 Potassium 3.8 Chloride 104 Carbon Dioxide 25 BUN 16 Creatinine 1.49 H Glucose 119 H Calcium 9.6 Consult Discharge Plan - Plan Referrals: Virginie Everett MD [Primary Care Provider] - (2) COPD (chronic obstructive pulmonary disease) Qualifiers: COPD type: emphysema Emphysema type: panlobular Qualified Code(s): J43.1 - Panlobular emphysema
--- NOTE | 2018-04-09 12:43 | Electrocardiograph Report ---
[address] [address] Test Date: 2018-04-08 Pat Name: Ector Gomez Department: 104 Room: 2A26 Gender: M [employer] Operator: [facility] : 1955 Requested By: [id number] Order Number: [id number] Reading MD: Raulito Brown Measurements Intervals [place] Rate: 91 P: 13 FL: 210 QRS: 2 QRSD: 126 T: 134 QT: 402 QTc: 450 Interpretive Statements SINUS RHYTHM WITH FIRST DEGREE AV BLOCK WITH FREQUENT VENTRICULAR PREMATURE COMPLEXES LEFT BUNDLE BRANCH BLOCK Electronically Signed On 04-09-2018 12:41:29 EDT by Raulito Brown
[2018-04-09] MEDS: GuaiFENesin Liq 200 MG/10 ML UDC PO PRN ×2 (12:44→19:55)
[2018-04-09] MEDS: *HR* Heparin 5,000 UNIT/ML VIAL SQ SCH (17:58)
[2018-04-10 03:47] LABS: Basophils % 0.4 %; Eosinophils # 0.2 K/mcL (0.0-0.6); Eosinophils % 1.9 %; Hemoglobin 15.3 g/dL (12.9-16.9); Immature Granulocytes % 0.4 % (0-4); Lymphocytes # 1.6 K/mcL (0.6-4.6); Lymphocytes % 19.5 %; Mean Corpuscular Hemoglobin 30.4 pg (28.0-33.3); Mean Corpuscular Volume 89.3 fL (83.0-100.0); Mean Platelet Volume 10.1 fL (9.4-12.4); Monocytes # 0.8 K/mcL (0.0-1.3); Monocytes % 9.6 %; Neutrophils # 5.4 K/mcL (1.6-8.9); Platelet Count 262 K/mcL (140-400); Red Blood Count 5.04 M/mcL (4.19-5.50); Red Cell Distribution Width 14.7 % (11.5-14.5); Segmented Neutrophils % 68.2 %
[2018-04-10 04:05] LABS: Calcium 9.8 mg/dL (8.6-10.3); Potassium 3.6 mEq/L (3.5-5.1)
[2018-04-10] MEDS: *HR* Heparin 5,000 UNIT/ML VIAL SQ SCH ×2 (06:04→18:10)
[2018-04-10] MEDS: GuaiFENesin Liq 200 MG/10 ML UDC PO PRN ×2 (06:14→20:11)
[2018-04-10] MEDS: Furosemide 40 MG/4 ML VIAL IVP SCH ×2 (08:25→16:24)
[2018-04-10] MEDS: Aspirin Enteric Coated 81 MG Tablet PO SCH (08:25)
[2018-04-10] MEDS: Ipratropium/Albuterol Neb 3 ML IH SCH ×3 (10:23→23:43)
[2018-04-10] MEDS: Budesonide/Formoterol 80/4.5 MDI IH SCH ×2 (10:23→23:43)
--- NOTE | 2018-04-10 11:39 | Internal Med Progress Note ---
Hospitalist Progress Note - Encounter Date of Encounter: 04/10/18 Time of Encounter: 15:10 - Subjective Interval History: Seen and examined at the bedside with his partner He is admitted and being managed for acute kidney failure as well as CHF exacerbation He is diuressing well and denies any new symptoms at this time On presentation, he had required O2 supplementation, this seemed to have resolved at my time of evaluation renal function is slowly improving - Exam Vitals: Temp Pulse Resp BP Pulse Ox 97.6 F 73 18 109/72 92 04/10/18 07:14 04/10/18 07:14 04/10/18 10:23 04/10/18 07:14 04/10/18 10:23 Exam: Gen.: Vitals noted. No acute distress. AAOx3. Sitting up comfortably in bed. Speaking in full sentences HEENT: PERRL/EOMI, oropharynx clear, Normocephalic, atraumatic, moist mucous membranes Cardiac: RRR, no murmur, +S1/S2, occasional PVC Pulmonary: CTAB Abdomen: soft, non-tender, BS noted, no guarding MSK: ROM intact, no joint swelling noted Extremities: 2+ pedal edema Neuro: A&Ox3, moves all extremities, no focal deficits Psych: Appropriate mood and behavior - Assessment and Plan (1) KAMERON (acute kidney injury) Current Visit: Yes Status: Acute Assessment and Plan: Improving Likely cardio-renal Continue diuresis Continue to monitor chem (2) COPD (chronic obstructive pulmonary disease) Current Visit: Yes Status: Chronic Assessment and Plan: No acute exacerbation. nebs PRN (3) DVT prophylaxis Current Visit: Yes Status: Acute Assessment and Plan: heparin sq (4) Systolic CHF, acute on chronic Current Visit: Yes Status: Acute Assessment and Plan: Last EF was 10 % on echo this month. Pt has elevated BNP and vascular congestion with pitting edema bilaterally. Continue BB, ACEI Continue spironolactone Continue lasix IV I/O -2L Continue daily weights, fluid restriction, telemetry, strict I and Os (5) Morbid obesity with BMI of 45.0-49.9, adult Current Visit: Yes Status: Chronic Assessment and Plan: diet and exercise (6) Elevated troponin Current Visit: Yes Status: Acute Assessment and Plan: Likely demand. troponins were mildly elevated at 0.06. Denies any chest pain, has previous troponins higher than 0.06. Continue to monitor No chest pain - Time Spent with Patient Total time spent is greater than 50% in coordination of care (as documented) at patient's floor/unit and/or counseling patient: Plan of Care Discussed with: patient Internal Medicine: Result - Labs CBC & Chem 7: 04/10/18 03:21 04/10/18 03:21 Labs: Short CBC 04/10/18 Range/Units 03:21 WBC 8.0 (4.3-11.1) K/mcL Hgb 15.3 (12.9-16.9) g/dL Hct 45.0 (37.5-50.1) % Plt Count 262 (140-400) K/mcL Neutrophils # 5.4 (1.6-8.9) K/mcL BMP 04/10/18 03:21 Sodium 137 Potassium 3.6 Chloride 104 Carbon Dioxide 24 BUN 18 Creatinine 1.48 H Glucose 114 H Calcium 9.8 Consult Discharge Plan - Plan Referrals: Virginie Everett MD [Primary Care Provider] - (2) COPD (chronic obstructive pulmonary disease) Qualifiers: COPD type: emphysema Emphysema type: panlobular Qualified Code(s): J43.1 - Panlobular emphysema
[2018-04-11] MEDS: *HR* Heparin 5,000 UNIT/ML VIAL SQ SCH ×2 (04:48→17:22)
[2018-04-11 05:30] LABS: Basophils % 0.4 %; Eosinophils # 0.2 K/mcL (0.0-0.6); Eosinophils % 2.3 %; Hematocrit 45.4 % (37.5-50.1); Hemoglobin 15.5 g/dL (12.9-16.9); Immature Granulocytes % 0.4 % (0-4); Lymphocytes # 1.7 K/mcL (0.6-4.6); Lymphocytes % 20.7 %; Mean Corpuscular HGB Conc 34.1 g/dL (31.6-35.5); Mean Corpuscular Hemoglobin 30.2 pg (28.0-33.3); Mean Corpuscular Volume 88.3 fL (83.0-100.0); Mean Platelet Volume 10.2 fL (9.4-12.4); Monocytes # 0.8 K/mcL (0.0-1.3); Monocytes % 9.1 %; Neutrophils # 5.5 K/mcL (1.6-8.9); Platelet Count 277 K/mcL (140-400); Red Blood Count 5.14 M/mcL (4.19-5.50); Red Cell Distribution Width 14.6 % (11.5-14.5); Segmented Neutrophils % 67.1 %
[2018-04-11 06:45] LABS: BUN/Creatinine Ratio 11 (6-26); Blood Urea Nitrogen 16 mg/dL (8-23); Calcium 9.5 mg/dL (8.6-10.3); Carbon Dioxide 21 mEq/L (23-29); Chloride 105 mEq/L (98-107); Glucose 113 mg/dL (70-105); Osmolality,Calculated 286 (280-300); Potassium 3.7 mEq/L (3.5-5.1); Sodium 137 mEq/L (136-145); eGFR For Non-African Americans 50 (> 60)
[2018-04-11] MEDS: Ipratropium/Albuterol Neb 3 ML IH SCH ×2 (07:46→15:22)
[2018-04-11] MEDS: Budesonide/Formoterol 80/4.5 MDI IH SCH ×2 (07:46→23:34)
[2018-04-11] MEDS: GuaiFENesin Liq 200 MG/10 ML UDC PO PRN ×3 (08:08→20:22)
[2018-04-11] MEDS: Furosemide 40 MG/4 ML VIAL IVP SCH ×2 (08:08→17:21)
[2018-04-11] MEDS: Aspirin Enteric Coated 81 MG Tablet PO SCH (08:09)
--- NOTE | 2018-04-11 11:44 | Internal Med Progress Note ---
<CbChemo Marlen - Last Filed: 04/11/18 11:41> Hospitalist Progress Note - Encounter Date of Encounter: 04/11/18 Time of Encounter: 11:41 - Subjective Interval History: 63-year-old male admitted with CHF exacerbation and KAMERON. He is resting comfortably on exam. Denies complaints this morning, reports that he is feeling much better. Breathing is improving, still reports some chest congestion, and he still has lower extremity edema. Denies fevers, chills, chest pain, abdominal pain, nausea, vomiting, change in bowels, or dysuria. - Exam Vitals: Temp Pulse Resp BP Pulse Ox 97.7 F 54 18 120/74 97 04/11/18 11:38 04/11/18 11:38 04/11/18 11:38 04/11/18 11:38 04/11/18 11:38 Exam: GEN: No acute distress, A&O3 HEAD: Atraumatic, normocephalic EYES: Pupils symmetric, sclera white, conjunctiva pink HEART: RRR, normal S1 and S2, no murmurs LUNGS: Clear to auscultation bilaterally, no wheezes, rhonchi, or crackles ABD: Soft, nontender, nondistended, bowel sounds present EXT: Bilateral pitting LE edema noted, pulses 2/4 NEURO: No focal deficits, cooperative with exam - Assessment and Plan (1) Systolic CHF, acute on chronic Current Visit: Yes Status: Acute Assessment and Plan: Recent TTE with EF of 10%. AICD in place Chest x-ray with vascular congestion. Bilateral pitting edema Patient symptoms are improving Continue BB, ACEI, and spironolactone Continue diuresis, I and O's, daily weights, fluid restrictions, telemetry Likely will be ready for discharge tomorrow (2) KAMERON (acute kidney injury) Current Visit: Yes Status: Acute Assessment and Plan: Improving. Creatinine 1.43 (baseline 1.2) Likely cardio-renal Continue to monitor with diuresis (3) Elevated troponin Current Visit: Yes Status: Acute Assessment and Plan: Mild elevation upon admission 0.06. History of troponinemia. No chest pain or acute EKG changes Likely demand ischemia (4) COPD (chronic obstructive pulmonary disease) Current Visit: Yes Status: Chronic Assessment and Plan: No acute exacerbation. Nebulizer when necessary. Continue inhalers DVT Prophylaxis: Subcutaneous heparin - Time Spent with Patient Total time spent is greater than 50% in coordination of care (as documented) at patient's floor/unit and/or counseling patient: Internal Medicine: Result - Labs CBC & Chem 7: 04/11/18 05:03 04/11/18 05:03 Labs: Short CBC 04/11/18 Range/Units 05:03 WBC 8.2 (4.3-11.1) K/mcL Hgb 15.5 (12.9-16.9) g/dL Hct 45.4 (37.5-50.1) % Plt Count 277 (140-400) K/mcL Neutrophils # 5.5 (1.6-8.9) K/mcL BMP 04/11/18 05:03 Sodium 137 Potassium 3.7 Chloride 105 Carbon Dioxide 21 L BUN 16 Creatinine 1.43 H Glucose 113 H Calcium 9.5 Consult Discharge Plan - Plan Referrals: Virginie Everett MD [Primary Care Provider] - <Clover Lin - Last Filed: 04/11/18 15:59> Hospitalist Progress Note - Encounter Date of Encounter: 04/11/18 - Exam Vitals: Temp Pulse Resp BP Pulse Ox 97.7 F 54 22 120/74 94 04/11/18 11:38 04/11/18 11:38 04/11/18 15:22 04/11/18 11:38 04/11/18 15:22 - Assessment and Plan (1) KAMERON (acute kidney injury) Current Visit: Yes Status: Acute (2) COPD (chronic obstructive pulmonary disease) Current Visit: Yes Status: Chronic (3) DVT prophylaxis Current Visit: Yes Status: Acute (4) Systolic CHF, acute on chronic Current Visit: Yes Status: Acute (5) Morbid obesity with BMI of 45.0-49.9, adult Current Visit: Yes Status: Chronic (6) Elevated troponin Current Visit: Yes Status: Acute - Time Spent with Patient Total time spent is greater than 50% in coordination of care (as documented) at patient's floor/unit and/or counseling patient: Internal Medicine: Result - Labs CBC & Chem 7: 04/11/18 05:03 04/11/18 05:03 Labs: Short CBC 04/11/18 Range/Units 05:03 WBC 8.2 (4.3-11.1) K/mcL Hgb 15.5 (12.9-16.9) g/dL Hct 45.4 (37.5-50.1) % Plt Count 277 (140-400) K/mcL Neutrophils # 5.5 (1.6-8.9) K/mcL BMP 04/11/18 05:03 Sodium 137 Potassium 3.7 Chloride 105 Carbon Dioxide 21 L BUN 16 Creatinine 1.43 H Glucose 113 H Calcium 9.5 - Attending Attestation I have seen and examined this patient independently. I have discussed with resident physician Dr. Vivar regarding the management plan. Agree with the documentation. <Chemo Vivar R - Last Filed: 04/11/18 11:41> (4) COPD (chronic obstructive pulmonary disease) Qualifiers: COPD type: emphysema Emphysema type: panlobular Qualified Code(s): J43.1 - Panlobular emphysema <Clover Lin - Last Filed: 04/11/18 15:59> (2) COPD (chronic obstructive pulmonary disease) Qualifiers: COPD type: emphysema Emphysema type: panlobular Qualified Code(s): J43.1 - Panlobular emphysema
[2018-04-11] MEDS ORDERED: Menthol 9.1 MG LOZENGE PO PRN (17:39)
[2018-04-12] MEDS: GuaiFENesin Liq 200 MG/10 ML UDC PO PRN ×2 (01:28→20:43)
[2018-04-12] MEDS: Ipratropium/Albuterol Neb 3 ML IH SCH ×3 (03:35→16:26)
[2018-04-12 05:08] LABS: BUN/Creatinine Ratio 14 (6-26); Blood Urea Nitrogen 19 mg/dL (8-23); Calcium 9.5 mg/dL (8.6-10.3); Carbon Dioxide 24 mEq/L (23-29); Chloride 104 mEq/L (98-107); Glucose 119 mg/dL (70-105); Osmolality,Calculated 287 (280-300); Potassium 3.7 mEq/L (3.5-5.1); Sodium 137 mEq/L (136-145); eGFR For Non-African Americans 53 (> 60)
[2018-04-12] MEDS: *HR* Heparin 5,000 UNIT/ML VIAL SQ SCH ×2 (05:31→17:13)
[2018-04-12] MEDS: Aspirin Enteric Coated 81 MG Tablet PO SCH (09:34)
[2018-04-12] MEDS: Furosemide 40 MG/4 ML VIAL IVP SCH ×2 (09:34→17:14)
[2018-04-12] MEDS: Budesonide/Formoterol 80/4.5 MDI IH SCH ×2 (10:27→19:48)
--- NOTE | 2018-04-12 13:28 | Internal Med Progress Note ---
<CbChemo Marlen - Last Filed: 04/12/18 13:26> Hospitalist Progress Note - Encounter Date of Encounter: 04/12/18 Time of Encounter: 13:26 - Subjective Interval History: 63-year-old male admitted with CHF exacerbation and KAMERON. He is resting comfortably on exam. Denies complaints this morning, reports that he is feeling much better. Breathing is improving, still reports some chest congestion which appears to a chronic feeling. He still has lower extremity edema. Denies fevers, chills, chest pain, abdominal pain, nausea, vomiting, change in bowels, or dysuria. - Exam Vitals: Temp Pulse Resp BP Pulse Ox 98.1 F 49 17 107/54 94 04/12/18 11:05 04/12/18 11:05 04/12/18 11:05 04/12/18 11:05 04/12/18 11:05 Exam: GEN: No acute distress, A&O3 HEAD: Atraumatic, normocephalic EYES: Pupils symmetric, sclera white, conjunctiva pink HEART: RRR, normal S1 and S2, no murmurs LUNGS: Clear to auscultation bilaterally, no wheezes, rhonchi, or crackles ABD: Soft, nontender, nondistended, bowel sounds present EXT: Bilateral pitting LE edema noted, pulses 2/4 NEURO: No focal deficits, cooperative with exam - Assessment and Plan (1) Systolic CHF, acute on chronic Current Visit: Yes Status: Acute Assessment and Plan: Recent TTE with EF of 10%. AICD in place Chest x-ray with vascular congestion Bilateral pitting edema - will continue to monitor for at least one more day Patient symptoms are improving Continue BB, ACEI, and spironolactone Continue diuresis, I and O's, daily weights, fluid restrictions, telemetry (2) KAMERON (acute kidney injury) Current Visit: Yes Status: Acute Assessment and Plan: Improving. Creatinine 1.37 (baseline 1.2) Likely cardio-renal Continue to monitor with diuresis (3) Elevated troponin Current Visit: Yes Status: Acute Assessment and Plan: Mild elevation upon admission 0.06. No chest pain or acute EKG changes Likely demand ischemia (4) COPD (chronic obstructive pulmonary disease) Current Visit: Yes Status: Chronic Assessment and Plan: No acute exacerbation. Nebulizer when necessary. Continue inhalers DVT Prophylaxis: Subcutaneous heparin - Time Spent with Patient Total time spent is greater than 50% in coordination of care (as documented) at patient's floor/unit and/or counseling patient: Internal Medicine: Result - Labs CBC & Chem 7: 04/11/18 05:03 04/12/18 03:59 Labs: BMP 04/12/18 03:59 Sodium 137 Potassium 3.7 Chloride 104 Carbon Dioxide 24 BUN 19 Creatinine 1.37 H Glucose 119 H Calcium 9.5 - VTE Documentation of Mechanical Device: Graduated compression elastic hosiery Consult Discharge Plan - Plan Referrals: Virginie Everett MD [Primary Care Provider] - 04/18/18 3:00 pm (Please follow up as schedule...) <Clover Lin - Last Filed: 04/12/18 17:15> Hospitalist Progress Note - Encounter Date of Encounter: 04/12/18 - Exam Vitals: Temp Pulse Resp BP Pulse Ox 97.8 F 94 21 101/75 93 04/12/18 15:57 04/12/18 15:57 04/12/18 16:28 04/12/18 15:57 04/12/18 16:28 - Assessment and Plan (1) KAMERON (acute kidney injury) Current Visit: Yes Status: Acute (2) COPD (chronic obstructive pulmonary disease) Current Visit: Yes Status: Chronic (3) DVT prophylaxis Current Visit: Yes Status: Acute (4) Systolic CHF, acute on chronic Current Visit: Yes Status: Acute (5) Morbid obesity with BMI of 45.0-49.9, adult Current Visit: Yes Status: Chronic (6) Elevated troponin Current Visit: Yes Status: Acute - Time Spent with Patient Total time spent is greater than 50% in coordination of care (as documented) at patient's floor/unit and/or counseling patient: Internal Medicine: Result - Labs CBC & Chem 7: 04/11/18 05:03 04/12/18 03:59 Labs: BMP 04/12/18 03:59 Sodium 137 Potassium 3.7 Chloride 104 Carbon Dioxide 24 BUN 19 Creatinine 1.37 H Glucose 119 H Calcium 9.5 - Attending Attestation I have seen and examined this patient independently. I have discussed with the resident physician Dr. Vivar regarding the management plan. Agree with the documentation. <Chemo Vivar - Last Filed: 04/12/18 13:26> (4) COPD (chronic obstructive pulmonary disease) Qualifiers: COPD type: emphysema Emphysema type: panlobular Qualified Code(s): J43.1 - Panlobular emphysema <Clover Lin - Last Filed: 04/12/18 17:15> (2) COPD (chronic obstructive pulmonary disease) Qualifiers: COPD type: emphysema Emphysema type: panlobular Qualified Code(s): J43.1 - Panlobular emphysema
[2018-04-13] MEDS: Ipratropium/Albuterol Neb 3 ML IH SCH ×2 (03:48→10:43)
[2018-04-13 04:48] LABS: BUN/Creatinine Ratio 14 (6-26); Blood Urea Nitrogen 19 mg/dL (8-23); Calcium 9.8 mg/dL (8.6-10.3); Carbon Dioxide 24 mEq/L (23-29); Chloride 103 mEq/L (98-107); Glucose 115 mg/dL (70-105); Osmolality,Calculated 283 (280-300); Potassium 4.2 mEq/L (3.5-5.1); Sodium 135 mEq/L (136-145); eGFR For Non-African Americans 52 (> 60)
[2018-04-13] MEDS: *HR* Heparin 5,000 UNIT/ML VIAL SQ SCH (05:06)
[2018-04-13] MEDS: GuaiFENesin Liq 200 MG/10 ML UDC PO PRN (05:06)
[2018-04-13 08:19] VITALS: BP 104/73
[2018-04-13] MEDS: Aspirin Enteric Coated 81 MG Tablet PO SCH (08:34)
[2018-04-13] MEDS: Furosemide 40 MG/4 ML VIAL IVP SCH (08:35)
--- NOTE | 2018-04-13 09:14 | Discharge Summary ---
- NOTES TO OUTPATIENT PROVIDER Notes to Outpatient Provider: Patient was admitted with acute decompensated heart failure exacerbation with acute kidney injury. Patient will need follow- up for his renal function within 3 days. Serum creatinine at discharge is 1.40 down from 1.51 on admission. However baseline creatinine is around 1.2. Date of Encounter: 04/13/18 Time of Encounter: 09:08 - Discharge Diagnosis (1) Systolic CHF, acute on chronic Priority: Primary Status: Acute Assessment and Plan: Patient with acute exacerbation of chronic systolic congestive heart failure with reduced ejection fraction Last EF was 10 % on echo this month. Pt has elevated BNP and vascular congestion with pitting edema bilaterally on admission -Currently compensated -Orthopnea is resolved and dyspnea on exertion is much improved -Continue BB -Continue spironolactone -Continue ASA -Continue lasix and change to by mouth dose of 40 mg twice a day -Patient unable to tolerate NICHELLE inhibitor currently secondary to renal dysfunction and history of hypotension and was discontinued by PCP. Patient's blood pressure can tolerate it could likely resume NICHELLE inhibitor soon. -May be a candidate for entresto due to recurrent hospitalizations for systolic heart failure however with inability to tolerate NICHELLE inhibitor currently so will not start at this time. Discussed with patient who will discuss this with open end spinning operator -Patient has AICD -I/O -6.5L from admission; down 5kg as well (2) KAMERON (acute kidney injury) Priority: Secondary Status: Acute Assessment and Plan: Patient had acute kidney injury likely secondary to decreased effective circulating volume from some component of suspected cardiorenal syndrome -Serum creatinine is improving from admission down to 1.40 hours had at baseline yet baseline appears to be 1.20 -Patient adamantly wants to go home and discuss my concerns with his renal function with him; he states that he has cardiology appointment on Thursday or of this week and will see his primary care doctor on Thursday of this week and will have his kidney function checked at those visits. -Continues to have negative fluid balance -2 L yesterday and so far -300 mL however the patient is voiding on his own this may not be completely accurate -fluid balance of -6.5 L since admission and is down 5 kg - (3) COPD (chronic obstructive pulmonary disease) Priority: Secondary Status: Chronic Assessment and Plan: No acute exacerbation. nebs PRN Qualifiers: COPD type: emphysema Emphysema type: panlobular Qualified Code(s): J43.1 - Panlobular emphysema (4) Morbid obesity with BMI of 45.0-49.9, adult Priority: Secondary Status: Chronic Assessment and Plan: Counseled on diet and lifestyle modifications (5) Elevated troponin Priority: Secondary Status: Acute Assessment and Plan: Likely demand. troponins were mildly elevated at 0.06. Denies any chest pain, has previous troponins higher than 0.06. No chest pain (6) DVT prophylaxis Priority: Secondary Status: Acute Assessment and Plan: heparin sq Hospital course: Mr. Gomez is a 63 year old male who presented to [facility] with chief complaint of shortness of breath. Patient had evidence of pulmonary vascular congestion as well as orthopnea and dyspnea on exertion and worsening lower extremity edema and was subsequently admitted for acute exacerbation of congestive heart failure. Patient was diuresed aggressively and had -6.5 L fluid balance and is well as of 5 kg loss throughout his hospitalization. Patient's orthopnea and dyspnea on exertion improved throughout his stay with diuresis. Patient will be transitioned back to his home dose of Lasix 40 mg twice a day as well as aspirin, beta munira, spironolactone. Patient was unable to tolerate NICHELLE inhibitor previously secondary to hypotension and renal dysfunction however may be a candidate for entresto in the future; I discussed this with the patient who will discuss this with his open end spinning operator. Patient also had acute kidney injury which improved with diuresis from 1.50-1.40 however is not back at baseline which was around 1.20. Patient will follow-up with his open end spinning operator his regular scheduled appointment on Thursday or of this week as well as with his primary care physician on Thursday of this week. The patient was counseled extensively on the need to return to the emergency department should he develop orthopnea, dyspnea on exertion, paroxysmal nocturnal dyspnea, or general worsening of respiratory status. Patient states he understands and will be compliant with his medications and fluid restriction. Discharge discussed with: patient, nurse - Time Spent with Patient Total time spent providing and/or coordinating discharge services: Greater than 30 minutes - Discharge Medications Home Medications: Albuterol Sulfate [Albuterol Inhaler] 2 puff IH Q4HR PRN 01/17/18 [History] Aspirin [Adult Aspirin Regimen] 81 mg PO DAILY 01/17/18 [History] Atorvastatin [Lipitor] 40 mg PO HS 01/17/18 [History] Carvedilol 3.125 mg PO BID 01/17/18 [History] Fluticasone Propionate Nasal [Flonase] 2 spr NS DAILY PRN 01/17/18 [History] Fluticasone/Salmeterol [Advair Hfa 115-21 Mcg Inhaler] 2 puff IH BID PRN [History] Loratadine [Allergy Relief] 10 mg PO DAILY 01/17/18 [History] Montelukast [Singulair] 10 mg PO HS 01/17/18 [History] Spironolactone [Aldactone] 50 mg PO DAILY #30 tablet 03/30/18 [Rx] Furosemide [Lasix] 40 mg PO BID 04/08/18 [History] Ipratropium/Albuterol Neb [Duoneb] 3 ml IH TID 04/08/18 [History] Allergies/Adverse Reactions: 3 Allergy/AdvReac Type Severity Reaction Status Date / Time penicillin V Allergy Severe See Verified 04/08/18 16:28 Comments Penicillins Allergy Severe Anaphylaxis Verified 04/08/18 16:28 Date of admission: 04/08/18 19:56 Primary care physician: Virginie Everett MD - Constitutional Vitals: Temp Pulse Resp BP Pulse Ox 97.6 F 95 18 104/73 97 04/13/18 08:11 04/13/18 08:11 04/13/18 08:11 04/13/18 08:11 04/13/18 08:11 Exam: Constitutional: No acute distress, Alert Psych: AAO x 3 HEENT: NCAT, EOMI Neck: supple, no JVD Cardio: regular rate and rhythm, +s1s2, no murmurs/rubs/gallops, no JVD, no s3 Resp: Very faint crackles in the bilateral bases Abd: soft, non tender/non distended, positive bowel sounds, no gaurding/reboud/ ridgitity Extremities: 1+ pitting edema to mid proximal shins bilaterally; much improved per patient - Patient Status Disposition: Home, Self-Care Condition: Good Functional capacity at discharge: independent ambulation Overall status at discharge: patient is back to baseline - Discharge Instructions Instructions: Heart Failure (DC) Follow Up With: Virginie Everett MD [Primary Care Provider] - 04/18/18 3:00 pm (Please follow up as schedule...) - Diet and Activity Activity: increase activity as tolerated Diet: advance to your usual diet, low salt diet, other (1500 mL fluid restriction) - VTE Documentation of Mechanical Device: Graduated compression elastic hosiery
[2018-04-13] MEDS: Budesonide/Formoterol 80/4.5 MDI IH SCH (10:43)
[2018-04-13] MEDS ORDERED: Furosemide 40 MG TABLET PO SCH (17:00)
== END 2018-04-13 11:01 | disposition home or self-care (01) | DRG 682 ==
LOC: 2ANU 12:58 → EMEROO 12:58 → SUATTDRO 19:56 → 2ANU 20:21
PROVIDERS: ADMIT Internal Medicine; ATTEND Internal Medicine

== ENCOUNTER 2018-05-12 10:57 | Observation (INO) ==
[2018-05-12] MEDS ORDERED: Furosemide 40 MG/4 ML VIAL IVP ONE (11:16)
--- NOTE | 2018-05-12 11:27 | Emergency Department Note ---
Disposition Clinical Impression: Peripheral edema CHF exacerbation Qualifiers: Heart failure type: unspecified Qualified Code(s): I50.9 - Heart failure, unspecified Disposition: Admitted As Inpatient Condition: Good Referrals: Virginie Everett MD [Primary Care Provider] - Forms: ED Satisfaction Letter Time of Disposition: 14:12 General Adult HPI - General Chief complaint: ED Shortness of Breath/Dyspnea Stated complaint: CAROLANN Time Seen by Provider: 05/12/18 11:14 Source: patient Mode of arrival: ambulatory Limitations: no limitations Nursing Notes Reviewed: Yes Vital Signs Reviewed: Yes - History of Present Illness HPI Narrative: Patient is a 63-year-old male that presents the emergency department for increasing shortness of breath. Patient states that he has a history of congestive heart failure and feels that this is an exacerbation of his CHF. Patient states that he has had increased swelling in bilateral lower extremities. Patient states that his shortness of breath worse when he lays flat. Patient states that he has been unable to sleep at night due to the smothering feeling. Patient denies any active chest pain. Patient states that he has been taking his Lasix as prescribed and has been having adequate urine output but feels like he is still retaining a significant amount of fluid. Patient does not normally wear oxygen at home during the day however he states that since his shortness of breath has gotten worse he is required oxygen during the day. Pain Scale: 4 - Related Data Home Medications Medication Instructions Recorded Confirmed Albuterol Sulfate [Albuterol 2 puff IH Q4HR PRN 01/17/18 04/08/18 Inhaler] Aspirin [Adult Aspirin Regimen] 81 mg PO DAILY 01/17/18 04/08/18 Atorvastatin [Lipitor] 40 mg PO 01/17/18 04/08/18 Carvedilol 3.125 mg PO BID 01/17/18 04/08/18 Fluticasone Propionate Nasal 2 spr NS DAILY PRN 01/17/18 04/08/18 [Flonase] Fluticasone/Salmeterol [Advair Hfa 2 puff IH BID PRN 01/17/18 04/08/18 115-21 Mcg Inhaler] Loratadine [Allergy Relief] 10 mg PO DAILY 01/17/18 04/08/18 Montelukast [Singulair] 10 mg PO 01/17/18 04/08/18 Furosemide [Lasix] 40 mg PO BID 04/08/18 04/08/18 Ipratropium/Albuterol Neb [Duoneb] 3 ml IH TID 04/08/18 04/08/18 Previous Rx's Medication Instructions Recorded Spironolactone [Aldactone] 50 mg PO DAILY #30 tablet 03/30/18 Allergies Allergy/AdvReac Type Severity Reaction Status Date / Time penicillin V Allergy Severe See Verified 04/08/18 16:28 Comments Penicillins Allergy Severe Anaphylaxis Verified 04/08/18 16:28 All systems ED: reviewed and negative except as stated. Cardiovascular: Denies: chest pain Respiratory: Reports: cough, dyspnea Gastrointestinal: Denies: abdominal pain Hematological/Lymphatic: Reports: other (Bilateral lower extremity swelling) Past Medical History - Past Medical History Medical history: Reports: atrial fibrillation, cardiomyopathy, CHF, COPD, hypertension Surgical history: Reports: other, AICD Psychiatric history: Reports: no psych history - Social History Smoking Status: Never smoker Smokeless Tobacco Status: No Alcohol use: Reports: none Drug use: Reports: none Physical Exam - General Limitations: no limitations General appearance: alert, in no apparent distress - Head Head exam: atraumatic, normocephalic - Eye Eye exam: Present: normal appearance, EOMI - Neck Neck exam: Present: normal inspection, full ROM, trachea midline - Respiratory Respiratory exam: Present: other (Patient has decreased air movement bilaterally ) - Cardiovascular Cardiovascular exam: Present: regular rate, normal rhythm, normal heart sounds, +S1, +S2 - Abdominal Exam Abdominal exam: Present: soft, Non-Tender, normal bowel sounds - Extremities Exam Extremities exam: Present: other (2+ pitting edema bilateral lower extremities.) - Neurological Exam Neurological exam: Present: alert, oriented X3 - Psychiatric Psychiatric exam: Present: normal affect, normal mood - Skin Skin exam: Present: warm, dry, intact Course Vital Signs Temperature 97.5 F L 05/12/18 11:02 Pulse Rate 72 05/12/18 11:02 Respiratory Rate 22 05/12/18 11:02 Blood Pressure 90/68 05/12/18 11:02 O2 Sat by Pulse Oximetry 97 05/12/18 11:02 Temperature 97.5 F L 05/12/18 11:02 Pulse Rate 85 05/12/18 12:55 Respiratory Rate 18 05/12/18 12:55 Blood Pressure 156/141 05/12/18 12:55 O2 Sat by Pulse Oximetry 96 05/12/18 12:55 Oxygen Delivery Oxygen Delivery Nasal Cannula Medical Decision Making - MDM Narrative Medical decision making narrative: Due the patient's into the emergency department with increased shortness of breath and a history of CHF with increased peripheral edema there is concern for possible CHF exacerbation. Patient will likely need admission to the hospital for further evaluation and management. Patient will have a CBC, BMP, troponin, chest x-ray and EKG. Patient's troponin was 0.06 however patient does have a history of elevated troponins being 0.06 0.07. This appears to be chronic. Patient's BNP is 1771. Patient does appear to have worsening of his baseline chronic kidney disease. Patient was given 40 of Lasix here in the emergency department to assist with his fluid status. EKG did not show any acute ischemic changes. Chest x-ray showed mild pulmonary vascular congestion but no evidence of acute pulmonary edema. Patient will need to be admitted to the hospital for further evaluation and management. The admitting hospitalist Dr. Rich was contacted and she is except the patient to their service. Patient will be admitted to the hospital at this time for further evaluation and management. - Medical Records Medical records reviewed: Yes I reviewed the patient's medical records. - Lab Data Lab results reviewed: Yes I reviewed the patient's lab results. Result diagrams: 05/12/18 12:07 05/12/18 12:07 Lab Results 05/12/18 05/12/18 05/12/18 Range/Units 12:07 12:07 12:07 WBC 7.7 (4.3-11.1) K/mcL RBC 5.48 (4.19-5.50) M/mcL Hgb 16.1 (12.9-16.9) g/dL Hct 48.7 (37.5-50.1) % MCV 88.9 (83.0-100.0) fL MCH 29.4 (28.0-33.3) pg MCHC 33.1 (31.6-35.5) g/dL RDW 17.2 H (11.5-14.5) % Plt Count 158 (140-400) K/mcL MPV 10.7 (9.4-12.4) fL Immature Gran % 0.5 (0-4) % Seg Neutrophils % 76.3 % Lymphocytes % 12.5 % Monocytes % 8.9 % Eosinophils % 1.7 % Basophils % 0.1 % Neutrophils # 5.9 (1.6-8.9) K/mcL Lymphocytes # 1.0 (0.6-4.6) K/mcL Monocytes # 0.7 (0.0-1.3) K/mcL Eosinophils # 0.1 (0.0-0.6) K/mcL Basophils # 0.0 (0.0-0.2) K/mcL Sodium 135 L (136-145) mEq/L Potassium 3.7 (3.5-5.1) mEq/L Chloride 99 (98-107) mEq/L Carbon Dioxide 26 (23-29) mEq/L BUN 20 (8-23) mg/dL Creatinine 1.81 H (0.70-1.30) mg/dL Est GFR ( Amer) 46 L (> 60) Est GFR (Non-Af Amer) 38 L (> 60) BUN/Creatinine Ratio 11 (6-26) Glucose 122 H (70-105) mg/dL Calculated Osmolality 284 (280-300) Lactic Acid 1.9 (0.5-2.2) mmol/L Calcium 9.3 (8.6-10.3) mg/dL Troponin I 0.06 H* (< 0.04) ng/mL B-Natriuretic Peptide (Less than 100) pg/mL 05/12/18 Range/Units 12:07 WBC (4.3-11.1) K/mcL RBC (4.19-5.50) M/mcL Hgb (12.9-16.9) g/dL Hct (37.5-50.1) % MCV (83.0-100.0) fL MCH (28.0-33.3) pg MCHC (31.6-35.5) g/dL RDW (11.5-14.5) % Plt Count (140-400) K/mcL MPV (9.4-12.4) fL Immature Gran % (0-4) % Seg Neutrophils % % Lymphocytes % % Monocytes % % Eosinophils % % Basophils % % Neutrophils # (1.6-8.9) K/mcL Lymphocytes # (0.6-4.6) K/mcL Monocytes # (0.0-1.3) K/mcL Eosinophils # (0.0-0.6) K/mcL Basophils # (0.0-0.2) K/mcL Sodium (136-145) mEq/L Potassium (3.5-5.1) mEq/L Chloride (98-107) mEq/L Carbon Dioxide (23-29) mEq/L BUN (8-23) mg/dL Creatinine (0.70-1.30) mg/dL Est GFR ( Amer) (> 60) Est GFR (Non-Af Amer) (> 60) BUN/Creatinine Ratio (6-26) Glucose (70-105) mg/dL Calculated Osmolality (280-300) Lactic Acid (0.5-2.2) mmol/L Calcium (8.6-10.3) mg/dL Troponin I (< 0.04) ng/mL B-Natriuretic Peptide 1771 H (Less than 100) pg/mL - Radiology Data Radiology results reviewed: Yes I reviewed the patient's radiology results. Chest X-Ray 05/12/18 11:16 IMPRESSION: Mild pulmonary vascular congestion along with interstitial edema but without overt pulmonary edema. Stable cardiomegaly. D/ / 05/12/2018 11:53:11 Parmjit Tang MD / tova Interpreting Provider: Parmjit Tang MD - EKG Data EKG #1 EKG attestation: Yes I reviewed and interpreted this EKG. EKG results narrative: EKG shows a paced rhythm at 89 bpm, WV interval of 147, curious duration of 1:30 , QTC of 469. There is evidence of frequent PVCs. No evidence of STEMI on EKG. This is compared to previous EKG on 04/08/18 which showed a sinus rhythm at a rate of 91 bpm. There is evidence of a left bundle branch block present on today's EKG this was present on previous EKG as well. Attestation Statement - Attestation Attestation: I examined this patient and my medical decision-making was reviewed with the Resident Physician, Dr. Ricks. I agree with the documented findings, disposition and treatment plan as described except to the extent set forth below. Patient is a 63-year-old white male with a history of CHF, COPD, CAD who presents to the emergency department today with a 2 day history of gradually worsening shortness of breath and lower cavity edema. Patient states she has also experienced intermittent chest heaviness but he feels this is more related to his breathing. Denies any fevers or chills, denies any production of cough. Patient denies any abdominal pain or flank pain. Patient states he is on Lasix and a week and half ago his doctor increased his dose he is currently taking 90 mg in the morning and 80 at night orally. Despite this increase he has had decreased urine output and gradually worsening lower extremity pitting edema that goes to the mid thigh. Patient is normally on oxygen at night for his breathing but states he has been using it during the day in an attempt to alleviate his shortness of breath. Patient states on last night he was unable to lay flat in bed due to the worsening breathing. Patient has some mild conversational dyspnea but is maintaining his oxygen saturations and has no increased work of breathing. I agree with patient's physical exam findings as documented. Vital signs are stable. Patient's EKG shows a paced rhythm without acute ischemia. Patient's chest x-ray shows some mild interstitial edema bilaterally, no acute infiltrates. Agents lab evaluation shows a chronically elevated troponin which is stable compared to his prior labs. Patient also has an elevated BNP. Patient was given aspirin and Lasix IV here. Patient will be admitted for further evaluation of an acute exacerbation of congestive heart failure.
[2018-05-12 12:34] LABS: Basophils % 0.1 %; Eosinophils # 0.1 K/mcL (0.0-0.6); Eosinophils % 1.7 %; Hematocrit 48.7 % (37.5-50.1); Hemoglobin 16.1 g/dL (12.9-16.9); Immature Granulocytes % 0.5 % (0-4); Lymphocytes % 12.5 %; Mean Corpuscular HGB Conc 33.1 g/dL (31.6-35.5); Mean Corpuscular Hemoglobin 29.4 pg (28.0-33.3); Mean Corpuscular Volume 88.9 fL (83.0-100.0); Mean Platelet Volume 10.7 fL (9.4-12.4); Monocytes # 0.7 K/mcL (0.0-1.3); Monocytes % 8.9 %; Neutrophils # 5.9 K/mcL (1.6-8.9); Platelet Count 158 K/mcL (140-400); Red Blood Count 5.48 M/mcL (4.19-5.50); Red Cell Distribution Width 17.2 % (11.5-14.5); Segmented Neutrophils % 76.3 %
[2018-05-12 13:00] LABS: Troponin I 0.06 ng/mL (< 0.04)
[2018-05-12] MEDS ORDERED: Aspirin 325 MG TABLET PO ONE (13:02)
[2018-05-12 13:03] LABS: Calcium 9.3 mg/dL (8.6-10.3); Potassium 3.7 mEq/L (3.5-5.1)
[2018-05-12] MEDS ORDERED: *HR* HYDROcodone/Acet 5/325 mg TABLET PO PRN (14:14)
[2018-05-12] MEDS ORDERED: Naloxone 0.4 MG/ML INJ IVP PRN (14:14)
[2018-05-12] MEDS ORDERED: Acetaminophen 325 MG TABLET PO PRN (14:14)
[2018-05-12] MEDS ORDERED: *HR* OxyCODONE Immed Rel 5 MG TABLET PO PRN (14:14)
[2018-05-12] MEDS ORDERED: Fluticasone Propionate Nasal 50 MCG/SPRAY BOTTLE NS PRN (14:20)
[2018-05-12] MEDS ORDERED: NON-FORMULARY MEDICATION 1 EACH EACH (Fluticasone/Salmeterol [Advair Hfa 115-21 Mcg Inhale IH PRN (14:20)
[2018-05-12] MEDS ORDERED: Ipratropium Neb 0.5 MG NEBULIZER IH PRN (14:47)
--- NOTE | 2018-05-12 15:00 | Internal Med History&Physical ---
Date of Encounter: 05/12/18 Time of Encounter: 14:58 Internal Medicine - H&P: HPI Chief complaint: Shortness of breath Admitted From: Home Plans for Post Hospital Care: Home History of present illness: Mr. Gomez is a 63 year old male with medical history of non-ischemic cardiomyopathy, CHF with decreased ejection fraction with EF of 10%, morbid obesity, atrial fibrillation with ICD, COPD, hypertension, chronic kidney disease. The patient presented to the emergency room with complaints of shortness of breath which started about 3 days ago, increased and worsening bilateral leg swelling, or feeling of drowning when the flat, as well as chest pain when laying flat. The patient also reports associated decreased urinary output. He was in his usual state of health till about 3 days ago when he noticed progressive worsening of his leg edema, he also notices orthopnea associated PND. He reports that he has pressure-like sensation when he lays flat and has a feeling of drowning when he does flat. He denies cough or sputum production, denies sick contacts or recent travels. He denies change in bowel habits. He denies dysuria, he reports he has noticed a decrease in his urine output He reports compliance with his medications, sodium and fluid restriction. However, he ran out of spironolactone for about 3 days ago, prior to onset of symptoms He has also been requiring to use his O2 during the day and he is usually on it during the night. During my evaluation, he is in cardiac position and is not in obvious distress, he also denies chest pain at this time, and is saturating 96-98 % on 2L of O2 Per spouse, patient is now on lexapro for depression, he does have a flat affect , but is not suicidal Work up in the ER reveals CBC at baseline, Sodium slightly low, BNP 1771, troponin 0.06, Cr is 1.81 (baseline 1.40), CXR showed interstitial edema without overt pulmonary edema, EKG is paced He will be placed on observation for management of acute on chronic CHF and acute on chronic renal failure Past Med Surg Social Fam HX - Past Medical History Medical history: atrial fibrillation, cardiomyopathy, CHF, COPD, hypertension Additional medical history: unspecified heart problem Psychiatric history: no psych history - Past Surgical History Surgical History: other, AICD Additional surgical history: AICD - Social History Smoking Status: Never smoker Smokeless Tobacco Status: No Alcohol use: none Drug use: none - Family History Father Living Status: Still Living Hx Family Cardiac Disorders: Yes (cabg) Hx Family Endocrine Disorder: Yes (dm) Internal Medicine - H&P: Meds RX: Albuterol Sulfate [Albuterol Inhaler] 2 puff IH Q4HR PRN 01/17/18 [History] RX: Aspirin [Adult Aspirin Regimen] 81 mg PO DAILY 01/17/18 [History] RX: Atorvastatin [Lipitor] 40 mg PO HS 01/17/18 [History] RX: Carvedilol 3.125 mg PO BID 01/17/18 [History] RX: Fluticasone Propionate Nasal [Flonase] 2 spr NS DAILY PRN 01/17/18 [History] RX: Fluticasone/Salmeterol [Advair Hfa 115-21 Mcg Inhaler] 2 puff IH BID [History] RX: Loratadine [Allergy Relief] 10 mg PO DAILY 01/17/18 [History] RX: Montelukast [Singulair] 10 mg PO HS 01/17/18 [History] RX: Spironolactone [Aldactone] 50 mg PO DAILY #30 tablet 03/30/18 [Rx] RX: Furosemide [Lasix] 40 mg PO BID 04/08/18 [History] RX: Ipratropium/Albuterol Neb [Duoneb] 3 ml IH TID 04/08/18 [History] 3 Allergy/AdvReac Type Severity Reaction Status Date / Time penicillin V Allergy Severe See Verified 04/08/18 16:28 Comments Penicillins Allergy Severe Anaphylaxis Verified 04/08/18 16:28 All Systems PM: A 10-system review of systems was performed and is negative for pertinent findings except as documented above in the HPI. - Constitutional Constitutional: as per HPI - EENT Eyes: as per HPI Ears: as per HPI Nose, mouth and throat: as per HPI - Cardiovascular Cardiovascular ROS IM: as per HPI - Respiratory Respiratory: as per HPI - Gastrointestinal Gastrointestinal: as per HPI - Musculoskeletal Musculoskeletal ROS IM: as per HPI - Integumentary Integumentary IM: as per HPI - Neurological Neurological ROS: as per HPI - Hematologic/Lymphatic Hematologic/Lymphatic: as per HPI - Constitutional Vitals: Temp Pulse Resp BP Pulse Ox 97.5 F L 83 25 111/92 93 05/12/18 11:02 05/12/18 14:13 05/12/18 14:44 05/12/18 14:13 05/12/18 14:13 Patient is up in bed in cardiac position General appearance: Present: A&O X 3, morbidly obese, no acute distress Exam: See detailed systemic exam below - Head Head exam: Present: atraumatic - Eye Eye exam: Present: PERRL, conjuntiva pink, sclera anicteric - ENT ENT exam: Present: mucous membranes dry - Neck Neck exam general surgery: Present: normal inspection - Respiratory Respiratory exam: Present: decreased breath sounds (diminshed air entry bilaterally) - Cardiovascular Cardiovascular exam: Present: +S1, +S2. Absent: JVD - GI/Abdominal Additional comments: Abdomen is obese and there is abdominal wall pitting pedal edema, abdomen is otherwise soft and not tender, no palpably enlarged organs, bowel sounds present in all quadrants - Extremities Exam Extremities exam: Present: pedal edema (2+ piting pedal edema up to the thighs) - Neurological Exam Neurological exam: Present: alert, CN II-XII intact, oriented X3, no focal deficits. Absent: pronater drift, facial droop, speech deficit - Psychiatric Psychiatric exam: Present: flat affect - Skin Skin exam: Present: dry, intact Internal Med - H&P Results - Labs CBC & Chem 7: 05/12/18 12:07 05/12/18 12:07 - Assessment and plan (1) Acute on chronic renal failure Current Visit: Yes Status: Acute Assessment and plan: Patient with baseline Cr of 1.3-1.4 presents with CHF exacerbation with Cr of 1.8 Likely cardiorenal Continue diuresis Monitor Chem Avoid nephrotoxins Strict Intake and Output Qualifiers: Acute renal failure type: unspecified Chronic kidney disease stage: stage 3 (moderate) Qualified Code(s): N17.9 - Acute kidney failure, unspecified; N18.3 - Chronic kidney disease, stage 3 (moderate) (2) Chronic respiratory failure with hypoxia Current Visit: Yes Status: Chronic Assessment and plan: Continue O2 supplement Continue to monitor Patient may need requalification prior to discharge (3) CHF exacerbation Current Visit: Yes Status: Acute Assessment and plan: Patient with known nonischemic cardiomyopathy with decreased EF. Ejection fraction in March this year was 10-15 % with multiple wall motion hypokinesis with severely dilated left ventricle. The patient presented with orthopnea, paroxysmal nocturnal dyspnea, worsening leg edema as well as increasing oxygen requirement and interstitial edema on chest x-ray. BNP is 1717 with associated slightly elevated troponins. CHF exacerbation is likely due to medication noncompliance Continue Lasix IV twice a day 40 mg At metolazone 5 mg by mouth daily Continue strict intake and output Continue daily weights Continue fluid restriction 1.5 L daily No indication for repeat echocardiogram at this time No current indication for cardiology evaluation Consult when necessary Troponin slightly elevated but that patient's baseline, will cycle. Qualifiers: Heart failure type: systolic Qualified Code(s): I50.23 - Acute on chronic systolic (congestive) heart failure (4) COPD (chronic obstructive pulmonary disease) Current Visit: Yes Status: Chronic Assessment and plan: not in exacerbation Continue duo nebs when necessary and home doses of Advair. Qualifiers: COPD type: emphysema Emphysema type: panlobular Qualified Code(s): J43.1 - Panlobular emphysema (5) DVT prophylaxis Current Visit: Yes Status: Acute Assessment and plan: SQ heparin Ambulate daily (6) Morbid obesity with BMI of 45.0-49.9, adult Current Visit: Yes Status: Chronic Assessment and plan: lifestyle modification - Time Spent With Patient Total time spent is greater than 50% in coordination of care (as documented) at patient's floor/unit and/or counseling patient:
[2018-05-12] MEDS: Furosemide 40 MG/4 ML VIAL IVP SCH (17:32)
[2018-05-12] MEDS: metOLazone 5 MG TABLET PO SCH (17:32)
[2018-05-12] MEDS: Budesonide/Formoterol 80/4.5 MDI IH SCH (19:44)
[2018-05-12] MEDS ORDERED: Furosemide 40 MG/4 ML VIAL IVP SCH (21:00)
[2018-05-12] MEDS: *HR* Heparin 5,000 UNIT/ML VIAL SQ SCH (21:22)
[2018-05-13 00:52] LABS: Basophils % 0.2 %; Eosinophils # 0.2 K/mcL (0.0-0.6); Eosinophils % 2.1 %; Hematocrit 48.6 % (37.5-50.1); Immature Granulocytes % 0.4 % (0-4); Lymphocytes # 1.1 K/mcL (0.6-4.6); Lymphocytes % 13.5 %; Mean Corpuscular HGB Conc 32.9 g/dL (31.6-35.5); Mean Platelet Volume 10.9 fL (9.4-12.4); Monocytes # 0.8 K/mcL (0.0-1.3); Monocytes % 9.7 %; Platelet Count 167 K/mcL (140-400); Red Blood Count 5.52 M/mcL (4.19-5.50); Red Cell Distribution Width 17.9 % (11.5-14.5); Segmented Neutrophils % 74.1 %
[2018-05-13 01:04] LABS: Calcium 9.6 mg/dL (8.6-10.3); Potassium 3.8 mEq/L (3.5-5.1)
[2018-05-13] MEDS: *HR* Heparin 5,000 UNIT/ML VIAL SQ SCH ×3 (05:25→21:08)
--- NOTE | 2018-05-13 06:53 | Electrocardiograph Report ---
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
[2018-05-13] MEDS: Budesonide/Formoterol 80/4.5 MDI IH SCH ×2 (08:08→19:41)
--- NOTE | 2018-05-13 08:53 | Internal Med Progress Note ---
<Shainajaren - Last Filed: 05/13/18 14:04> Hospitalist Progress Note - Encounter Date of Encounter: 05/13/18 Time of Encounter: 09:50 - Exam Vitals: Temp Pulse Resp BP Pulse Ox 98.5 F 72 16 115/79 95 05/13/18 10:40 05/13/18 10:40 05/13/18 10:40 05/13/18 10:40 05/13/18 10:40 - Assessment and Plan (1) COPD (chronic obstructive pulmonary disease) Current Visit: Yes Status: Chronic (2) DVT prophylaxis Current Visit: Yes Status: Acute (3) Morbid obesity with BMI of 45.0-49.9, adult Current Visit: Yes Status: Chronic (4) CHF exacerbation Current Visit: Yes Status: Acute (5) Acute on chronic renal failure Current Visit: Yes Status: Acute (6) Chronic respiratory failure with hypoxia Current Visit: Yes Status: Chronic - Time Spent with Patient Total time spent is greater than 50% in coordination of care (as documented) at patient's floor/unit and/or counseling patient: Internal Medicine: Result - Labs CBC & Chem 7: 05/13/18 00:20 05/13/18 00:20 Labs: Short CBC 05/13/18 Range/Units 00:20 WBC 8.1 (4.3-11.1) K/mcL Hgb 16.0 (12.9-16.9) g/dL Hct 48.6 (37.5-50.1) % Plt Count 167 (140-400) K/mcL Neutrophils # 6.0 (1.6-8.9) K/mcL BMP 05/13/18 00:20 Sodium 135 L Potassium 3.8 Chloride 101 Carbon Dioxide 24 BUN 20 Creatinine 1.64 H Glucose 124 H Calcium 9.6 Cardiac Enzymes 05/12/18 05/13/18 05/13/18 Range/Units 18:22 00:20 06:09 Troponin I 0.05 H* 0.06 H* 0.06 H* (< 0.04) ng/mL Consult Discharge Plan - Plan Referrals: Virginie Everett MD [Primary Care Provider] - - Attending Attestation I saw evaluated and examined this patient and my medical decision-making was reviewed with the Resident Physician, Fabian Gil. I agree with the documented findings, disposition and treatment plan as described except to any changes set forth below. We independently had [id number] contact with the patient. Patient continues to have orthopnea, shortness of breath with exertion and pedal edema. Reportedly ran out of his diuretic and developed worsening swelling. Compliant with fluid restriction. No chest pain or palpitations. On examination, patient has bilateral lower extremity edema. Heart sounds were normal. Basal crackles audible. He also has mild wheezing. Abdomen is soft, nontender. Creatinine 1.64 today. Improving. Acute congestive heart failure: Combined. We will consult cardiology to optimize patient's medical management. He does have a decreased ejection fraction of 10-15% which is lower than his prior value according to 2-D echocardiogram done in March. Monitor input and output. Monitor daily weights. O2 supplementation. COPD: Continue bronchodilators as needed. Acute hypoxic respiratory failure: Due to CHF exacerbation. Continue O2 supplementation. Nonischemic cardiomyopathy: Continue aspirin, statin and beta munira. Acute kidney injury: Due to cardiorenal syndrome. Improving. <Fabian Gil - Last Filed: 05/13/18 16:32> Hospitalist Progress Note - Encounter Date of Encounter: 05/13/18 - Subjective Interval History: Mr. Gomez is a morbidly obese 63-year-old male with a past medical history of nonischemic cardio myopathy. COPD, A. fib on ICD, HTN, and CKD3 who was admitted to the floor because of shortness of breath. Patient is currently on 2 L of home oxygen (uses only at night), takes Aldactone to 25 mg by mouth, Lasix 40 mg twice a day, Coreg 3.125 twice a day. Patient endorses that she ran out of his Aldactone 3 days ago and felt short of breath, with increase in requirement for home oxygen. He endorses orthopnea, paroxysmal nocturnal dyspnea, worsening leg edema. Initial workup in the ER showed that his BNP was 1771, with elevated troponins 90.05, 0.06), CXR showing interstitial edema. He also had an KAMERON of admission (Cr 1.81-> 1.69) Patient was recently admitted to [facility] in March for AECHF. He was treated with 40 IV Lasix at that time, but had to be increased to 60 twice a day and then eventually to 60 TID. Patient also has a progressively decreasing EF from 30-35 % (11/2017) to 10-15% as of this visit. His last Cath was in 11/2017 and was unremarkable. Currently patient is on 40 mg Lasix. - Exam Vitals: Temp Pulse Resp BP Pulse Ox 97.6 F 49 16 114/73 94 05/13/18 07:50 05/13/18 07:50 05/13/18 07:50 05/13/18 07:50 05/13/18 07:50 Exam: General: nad, a&ox3, answers q's appropriately Head: atraumatic, normocephalic Respiratory: cleat to auscultation bilaterally, breath sounds. No wheezing, has crackles, rales Cardiovascular: Regular rate and rhythm. S1 and S2, No rubs, gallops, or murmurs. 2+ pedal edema. No JVD, no S3 sounds Abdomen: Abdomen is soft, non-tender, bowel sounds present in all quadrants. Extremities: 2+ pitting edema, no clubbing or cyanosis Skin: No petechia or ecchymosis, no rash, ulcer as as described above Neuro: Alert oriented x 3 normal cranial nerves, no focal deficits - Assessment and Plan (1) Acute and chronic respiratory failure with hypoxia Current Visit: Yes Status: Acute Assessment and Plan: -Likely due to acute exacerbation of CHF. - Was on 2 L of oxygen only at night, but for the past 3 days he is using it all the time. - Currently being gently diuresed on 40 mg Lasix. Monitor Is/Os. Cardiology on board. (2) Systolic CHF, acute on chronic Current Visit: No Status: Acute Assessment and Plan: - Likely due to running out of his home medication Aldactone 25 mg PO . Patient also as a history of hypertension. -Patient has had recurrent admissions in the past for acute exacerbation of CHF , last admission being in March 2018, was aggressively diuresed and sent home. -Patient has had a decrease in his ejection fraction from 30% to an EF 10% as of his last visit. -Takes home medications Aldactone 25 mg by mouth, Lasix 40 mg by mouth twice a day, Coreg 3.125 by mouth twice a day. Patient endorses increased dependence on home oxygen, / as opposed to only at night -Patient endorses dyspnea on exertion, orthopnea, or paroxysmal nocturnal dyspnea. -Currently on Lasix 40 mg, Aldactone 25 mg, Strict I's and O's (3) COPD (chronic obstructive pulmonary disease) Current Visit: Yes Status: Chronic Assessment and Plan: - Patient has a history of COPD. Singulair and Advair as home inhalers. on 2 L of home oxygen. -He denies any productive cough, or increasing the frequency of cough during this admission. 4, he does not appear to be in COPD exacerbation -DuoNeb's PRN, Titrate O2 to sPO2> 88% (4) KAMERON (acute kidney injury) Current Visit: No Status: Acute Assessment and Plan: - Due to his history of congestive heart failure leading to cardiorenal syndrome. -Patient was admitted with creatinine of 1.43, currently trending down 1.43> 1.37> 1.40> 1.81> 1.64 -Gentle diuresis , avoid nephrotoxic agents,renally dose medications . Monitor electroloyes. DVT Prophylaxis: SQ heparin - Time Spent with Patient Total time spent is greater than 50% in coordination of care (as documented) at patient's floor/unit and/or counseling patient: Internal Medicine: Result - Labs CBC & Chem 7: 05/13/18 00:20 05/13/18 00:20 Labs: Short CBC 05/13/18 Range/Units 00:20 WBC 8.1 (4.3-11.1) K/mcL Hgb 16.0 (12.9-16.9) g/dL Hct 48.6 (37.5-50.1) % Plt Count 167 (140-400) K/mcL Neutrophils # 6.0 (1.6-8.9) K/mcL BMP 05/13/18 00:20 Sodium 135 L Potassium 3.8 Chloride 101 Carbon Dioxide 24 BUN 20 Creatinine 1.64 H Glucose 124 H Calcium 9.6 Cardiac Enzymes 05/12/18 05/13/18 05/13/18 Range/Units 18:22 00:20 06:09 Troponin I 0.05 H* 0.06 H* 0.06 H* (< 0.04) ng/mL <Kelly Merritt - Last Filed: 05/13/18 14:04> (1) COPD (chronic obstructive pulmonary disease) Qualifiers: COPD type: emphysema Emphysema type: panlobular Qualified Code(s): J43.1 - Panlobular emphysema (4) CHF exacerbation Qualifiers: Heart failure type: systolic Qualified Code(s): I50.23 - Acute on chronic systolic (congestive) heart failure (5) Acute on chronic renal failure Qualifiers: Acute renal failure type: unspecified Chronic kidney disease stage: stage 3 ( moderate) Qualified Code(s): N17.9 - Acute kidney failure, unspecified; N18.3 - Chronic kidney disease, stage 3 (moderate) <Fabian Gil - Last Filed: 05/13/18 16:32> (3) COPD (chronic obstructive pulmonary disease) Qualifiers: COPD type: emphysema Emphysema type: panlobular Qualified Code(s): J43.1 - Panlobular emphysema
[2018-05-13] MEDS: metOLazone 5 MG TABLET PO SCH (09:38)
[2018-05-13] MEDS: Loratadine 10 MG TABLET PO SCH (09:38)
[2018-05-13] MEDS: Aspirin Enteric Coated 81 MG Tablet PO SCH (09:38)
[2018-05-13] MEDS: Furosemide 40 MG/4 ML VIAL IVP SCH ×2 (09:38→20:56)
[2018-05-14] MEDS: *HR* Heparin 5,000 UNIT/ML VIAL SQ SCH ×3 (06:07→21:19)
[2018-05-14 06:08] LABS: Basophils % 0.3 %; Eosinophils # 0.1 K/mcL (0.0-0.6); Eosinophils % 1.9 %; Hematocrit 49.7 % (37.5-50.1); Hemoglobin 16.4 g/dL (12.9-16.9); Immature Granulocytes % 0.4 % (0-4); Lymphocytes # 1.2 K/mcL (0.6-4.6); Lymphocytes % 16.9 %; Mean Corpuscular Hemoglobin 29.1 pg (28.0-33.3); Mean Corpuscular Volume 88.3 fL (83.0-100.0); Mean Platelet Volume 10.9 fL (9.4-12.4); Monocytes # 0.7 K/mcL (0.0-1.3); Monocytes % 10.3 %; Neutrophils # 4.9 K/mcL (1.6-8.9); Platelet Count 157 K/mcL (140-400); Red Blood Count 5.63 M/mcL (4.19-5.50); Red Cell Distribution Width 17.2 % (11.5-14.5); Segmented Neutrophils % 70.2 %
[2018-05-14 06:24] LABS: Calcium 9.9 mg/dL (8.6-10.3); Potassium 3.6 mEq/L (3.5-5.1)
[2018-05-14] MEDS: Loratadine 10 MG TABLET PO SCH (08:58)
[2018-05-14] MEDS: metOLazone 5 MG TABLET PO SCH (08:59)
[2018-05-14] MEDS: Furosemide 40 MG/4 ML VIAL IVP SCH ×3 (08:59→18:30)
[2018-05-14] MEDS: Aspirin Enteric Coated 81 MG Tablet PO SCH (08:59)
--- NOTE | 2018-05-14 09:23 | Internal Med Progress Note ---
<Kelly Merritt - Last Filed: 05/14/18 13:46> Hospitalist Progress Note - Encounter Date of Encounter: 05/14/18 Time of Encounter: 10:10 - Exam Vitals: Temp Pulse Resp BP Pulse Ox 97.4 F L 78 16 94/62 94 05/14/18 11:12 05/14/18 11:12 05/14/18 11:12 05/14/18 11:12 05/14/18 11:12 - Assessment and Plan (1) COPD (chronic obstructive pulmonary disease) Current Visit: Yes Status: Chronic (2) DVT prophylaxis Current Visit: Yes Status: Acute (3) Morbid obesity with BMI of 45.0-49.9, adult Current Visit: Yes Status: Chronic (4) CHF exacerbation Current Visit: Yes Status: Acute (5) Acute on chronic renal failure Current Visit: Yes Status: Acute (6) Chronic respiratory failure with hypoxia Current Visit: Yes Status: Chronic - Time Spent with Patient Total time spent is greater than 50% in coordination of care (as documented) at patient's floor/unit and/or counseling patient: Internal Medicine: Result - Labs CBC & Chem 7: 05/14/18 05:42 05/14/18 05:42 Labs: Short CBC 05/14/18 Range/Units 05:42 WBC 6.9 (4.3-11.1) K/mcL Hgb 16.4 (12.9-16.9) g/dL Hct 49.7 (37.5-50.1) % Plt Count 157 (140-400) K/mcL Neutrophils # 4.9 (1.6-8.9) K/mcL BMP 05/14/18 05:42 Sodium 134 L Potassium 3.6 Chloride 96 L Carbon Dioxide 28 BUN 20 Creatinine 1.76 H Glucose 111 H Calcium 9.9 Consult Discharge Plan - Plan Referrals: Virginie Everett MD [Primary Care Provider] - 05/18/18 1:30 pm (Please follow up as schedule...) - Attending Attestation I saw evaluated and examined this patient and my medical decision-making was reviewed with the Resident Physician, Fabian Gil. I agree with the documented findings, disposition and treatment plan as described except to any changes set forth below. We independently had [id number] contact with the patient. Patient is feeling much better today. Shortness of breath is improving. Orthopnea is also improving. He does continue to have bilateral lower extremity edema. No chest pain or palpitations. Exam: Patient continues to have bilateral lower extremity edema. Heart sounds were normal. Basal crackles audible. Mild end expiratory wheeze. Abdomen is soft, nontender. Creatinine 1.76 today. Acute congestive heart failure: Combined. Continue intravenous Lasix as patient continues to have bilateral lower extremity swelling. Monitor vital signs. Monitor renal function. Appreciate cardiology input. COPD: Continue bronchodilators as needed. Not in acute exacerbation. Acute hypoxic respiratory failure: Improved. Patient currently saturating well on room air. Nonischemic cardiomyopathy: Continue aspirin, statin and beta munira. Acute kidney injury: We will continue to follow renal function closely. Patient does have underlying chronic kidney disease stage III. <Fabian Gil - Last Filed: 05/14/18 18:27> Hospitalist Progress Note - Encounter Date of Encounter: 05/14/18 - Subjective Interval History: 05/14 Acute events overnight. Patient denies any worsening shortness of breath, chest pain, palpitations. He does appear to be volume overloaded, currently on Lasix 40 mg IV twice a day , Aldactone 50 mg.. Due to his worsening renal function his metalazone has been discontinued. Patient continues to be on 2 L of nasal cannula satting at 92%. 05/13 Mr. Gomez is a morbidly obese 63-year-old male with a past medical history of nonischemic cardio myopathy. COPD, A. fib on ICD, HTN, and CKD3 who was admitted to the floor because of shortness of breath. Patient is currently on 2 L of home oxygen (uses only at night), takes Aldactone to 25 mg by mouth, Lasix 40 mg twice a day, Coreg 3.125 twice a day. Patient endorses that she ran out of his Aldactone 3 days ago and felt short of breath, with increase in requirement for home oxygen. He endorses orthopnea, paroxysmal nocturnal dyspnea, worsening leg edema. Initial workup in the ER showed that his BNP was 1771, with elevated troponins 90.05, 0.06), CXR showing interstitial edema. He also had an KAMERON of admission (Cr 1.81-> 1.69) Patient was recently admitted to [facility] in March for AECHF. He was treated with 40 IV Lasix at that time, but had to be increased to 60 twice a day and then eventually to 60 TID. Patient also has a progressively decreasing EF from 30-35 % (11/2017) to 10-15% as of this visit. His last Cath was in 11/2017 and was unremarkable. Currently patient is on 40 mg Lasix. - Exam Vitals: Temp Pulse Resp BP Pulse Ox 97.5 F L 69 15 126/68 95 05/14/18 07:56 05/14/18 07:56 05/14/18 07:56 05/14/18 07:56 05/14/18 07:56 Exam: General: nad, a&ox3, answers q's appropriately Head: atraumatic, normocephalic Respiratory: cleat to auscultation bilaterally, breath sounds. No wheezing, has crackles, rales Cardiovascular: Regular rate and rhythm. S1 and S2, No rubs, gallops, or murmurs. 2+ pedal edema. No JVD, no S3 sounds Abdomen: Abdomen is soft, non-tender, bowel sounds present in all quadrants. Extremities: 2+ pitting edema, no clubbing or cyanosis Skin: No petechia or ecchymosis, no rash, ulcer as as described above Neuro: Alert oriented x 3 normal cranial nerves, no focal deficits - Assessment and Plan (1) Acute and chronic respiratory failure with hypoxia Current Visit: Yes Status: Acute Assessment and Plan: - improving. Likely due to acute exacerbation of CHF with an EF 10%. - Was on 2 L of oxygen only at night at home, but for the past 3 days he is using it all the time. Patient is currently on room air satting at 92%. - Currently being gently diuresed on 40 mg Lasix. Monitor Is/Os. Increased his dose of BB to 6.25. (2) Systolic CHF, acute on chronic Current Visit: No Status: Acute Assessment and Plan: - Likely due to running out of his home medication Aldactone 25 mg PO . Hx of recurrent admissions for AECHF with an EF 10% currently. -Takes home medications Aldactone 25 mg by mouth, Lasix 40 mg by mouth twice a day, Coreg 3.125 by mouth twice a day. Patient endorses increased dependence on home oxygen, / as opposed to only at night -Patient currently endorses no worsening dyspnea on exertion, orthopnea, or paroxysmal nocturnal dyspnea. Continues to volume overload on exam with 2+ pitting edema. -Currently on Lasix 40 mg, Aldactone 50 mg, net - ve : 3.5 L, Fluid restriction. Discontinued metolazone because of worsening cardiorenal syndrome (Cr 1.76) (3) KAMERON (acute kidney injury) Current Visit: No Status: Acute Assessment and Plan: - Due to his history of congestive heart failure leading to cardiorenal syndrome. -Patient was admitted with creatinine of 1.43, currently trending down 1.43> 1.37> 1.40> 1.81> 1.64> 1.76 -Gentle diuresis , avoid nephrotoxic agents, discontinue metalazone, renally dose medications . Monitor electrolytes and UOP. (4) Dilated cardiomyopathy Current Visit: Yes Status: Acute Assessment and Plan: - Patient has a history of nonischemic dilated cardiomyopathy. Likely due to his history of hypertension. -Continues to be on aspirin, beta blockers, statins. (5) COPD (chronic obstructive pulmonary disease) Current Visit: Yes Status: Chronic Assessment and Plan: - Patient has a history of COPD. Singulair and Advair as home inhalers. on 2 L of home oxygen. -He denies any productive cough, or increasing the frequency of cough during this admission. 4, he does not appear to be in COPD exacerbation -DuoNeb's PRN, Titrate O2 to sPO2> 88% DVT Prophylaxis: SQ heparin - Time Spent with Patient Total time spent is greater than 50% in coordination of care (as documented) at patient's floor/unit and/or counseling patient: Internal Medicine: Result - Labs CBC & Chem 7: 05/14/18 05:42 05/14/18 05:42 Labs: Short CBC 05/14/18 Range/Units 05:42 WBC 6.9 (4.3-11.1) K/mcL Hgb 16.4 (12.9-16.9) g/dL Hct 49.7 (37.5-50.1) % Plt Count 157 (140-400) K/mcL Neutrophils # 4.9 (1.6-8.9) K/mcL BMP 05/14/18 05:42 Sodium 134 L Potassium 3.6 Chloride 96 L Carbon Dioxide 28 BUN 20 Creatinine 1.76 H Glucose 111 H Calcium 9.9 <Kelly Merritt - Last Filed: 05/14/18 13:46> (1) COPD (chronic obstructive pulmonary disease) Qualifiers: COPD type: emphysema Emphysema type: panlobular Qualified Code(s): J43.1 - Panlobular emphysema (4) CHF exacerbation Qualifiers: Heart failure type: systolic Qualified Code(s): I50.23 - Acute on chronic systolic (congestive) heart failure (5) Acute on chronic renal failure Qualifiers: Acute renal failure type: unspecified Chronic kidney disease stage: stage 3 ( moderate) Qualified Code(s): N17.9 - Acute kidney failure, unspecified; N18.3 - Chronic kidney disease, stage 3 (moderate) <Fabian Gil - Last Filed: 05/14/18 18:27> (5) COPD (chronic obstructive pulmonary disease) Qualifiers: COPD type: emphysema Emphysema type: panlobular Qualified Code(s): J43.1 - Panlobular emphysema
[2018-05-14] MEDS: Ipratropium/Albuterol Neb 3 ML IH PRN (10:11)
[2018-05-14] MEDS: Budesonide/Formoterol 80/4.5 MDI IH SCH ×2 (10:11→22:19)
--- NOTE | 2018-05-14 10:16 | Cardiology Consult Note ---
Date of Encounter: 05/14/18 Time of Encounter: 08:30 Assessment and Plan (1) Systolic CHF, acute on chronic Current Visit: No Status: Acute Per cardiology: -Admitted with acute on chronic CHF, reports class III symptoms. Chest x-ray with pulmonary vascular congestion. BNP 1771. -Known NICM, LVEF 30%. Has AICD. On BB, has not previously been on rehana/arb due to hypotension, now with KAMERON on CKD. -Reports missed dose of aldactone at home. -Volume overloaded on exam, however patient reports about his baseline today. -On lasix and aldactone in outpatient setting. Was started on metalazone inpatient. However, renal function worse than baseline. -Currently net negative 3500ml. Weight down 7kg since admission. -reprots compliance with sodium, fluid restriction. -Of note, has been recommended for referral for advanced heart failure therapy in outpatient setting, and patient has historically declined. -Agree with IV diuresis. Remains significantly volume overloaded on exam, however patient reports volume status is at his baseline. -With worsening renal function, will stop metalazone. Can consider discharge on higher doses of lasix -CHF education reinforced with patient. (2) KAMERON (acute kidney injury) Current Visit: No Status: Acute Per cardiology: -Creatinine today 1.76. -Appears baseline around 1.2-1.4. -Management per primary service. (3) Elevated troponin Current Visit: No Status: Acute Per cardiology: -Troponins 0.06, 0.05, 0.06, 0.06. Troponins flat and adynamic in the setting of CHF, KAMERON. -Denies chest pain. -NO acute ischemic ECG changes. -[facility] 11/2017 with coronary arteries angiographically normal. -Demand ischemia related to above. -No cardiac rehab consult warranted. (4) NSVT (nonsustained ventricular tachycardia) Current Visit: No Status: Acute Per cardiology: -Known NSVT. -ON BB. -Has AICD, denies shocks. -Was on coreg 12.5mg BID in outpateint setting. Currently receiving 3.125mg BID. -AICD interrogated with multiple non-sustained runs of VT. One ATP noted since . No ICD shocks. -Will increase BB. Recommend uptitrating as BB will allow. Discussion w patient/family: The assessment and plan as outlined above was discussed with the patient who expressed understanding and agreement. All questions were answered. Thank you for involving us in the care of your patient. Please call with any questions. Discussed and reviewed with Dr.John Figueroa. History of Present Illness Consult date: 05/13/18 Requesting physician: Fabian Gil Consult reason: CHF Chief complaint: shortness of breath History of present illness: Mr. Gomez is a 63 year old male with a relevant past medical history of NICM LVEF 30%, AICD, non-sustained VT, CHF, HTN, HLD, COPD who presented to [facility] with complaints of worsening peripheral edema and shrotness of breath. Patient reported that he missed one dose of aldactone. Patient states he noticed 10 pound weight gain and worsening edema. Patient states today symptoms are back to his baseline. Patient denies ICD shocks. Past Med Surg Social Fam HX - Past Medical History Attestation: Yes The following information was validated with the patient. Source: patient, old records reviewed Medical history: cardiomyopathy, CHF, COPD, hypertension Additional medical history: unspecified heart problem Psychiatric history: no psych history - Past Surgical History Surgical History: other, AICD Additional surgical history: AICD- Model E143 Serial #[id number] - Social History Smoking Status: Never smoker Smokeless Tobacco Status: No Alcohol use: none Drug use: none - Family History Father Adopted: [place]: Pop Age: 81 Family Member Ethnicity: Non- Living Status: Still Living Hx Family Cardiac Disorders: Yes (Coronary bypass, HTN) Hx Family Respiratory Disorders: No Hx Family Cancer: No Hx Family GI Disorders: No Hx Family Genitourinary Disorders: No Hx Family Endocrine Disorder: Yes (DM) Hx Family Musculoskeletal Disorders: No Hx Family Neuromuscular Disorders: No Hx Family Neurologic Disorders: No Hx Family HEENT Disorders: No Hx Family Autoimmune Disorders: No Hx Family Reproductive Disorders: No Hx Family Psychosocial Disorders: No Hx Family Medical Disorders: No Mother History Unknown: Yes Medications and Allergies Albuterol Sulfate [Albuterol Inhaler] 2 puff IH Q4HR PRN 01/17/18 [History] Aspirin [Adult Aspirin Regimen] 81 mg PO DAILY 01/17/18 [History] Atorvastatin [Lipitor] 40 mg PO HS 01/17/18 [History] Carvedilol 3.125 mg PO BID 01/17/18 [History] Fluticasone Propionate Nasal [Flonase] 2 spr NS DAILY PRN 01/17/18 [History] Fluticasone/Salmeterol [Advair Hfa 115-21 Mcg Inhaler] 2 puff IH BID 01/17/18 [ History] Loratadine [Allergy Relief] 10 mg PO DAILY 01/17/18 [History] Montelukast [Singulair] 10 mg PO HS 01/17/18 [History] Spironolactone [Aldactone] 50 mg PO DAILY #30 tablet 03/30/18 [Rx] Furosemide [Lasix] 40 mg PO BID 04/08/18 [History] Ipratropium/Albuterol Neb [Duoneb] 3 ml IH TID 04/08/18 [History] Escitalopram [Lexapro] 5 mg PO DAILY 05/12/18 [History] 3 Allergy/AdvReac Type Severity Reaction Status Date / Time penicillin V Allergy Severe See Verified 04/08/18 16:28 Comments Penicillins Allergy Severe Anaphylaxis Verified 04/08/18 16:28 All Systems Review: The remainder of the systems were reviewed and are negative - Cardiovascular Cardiovascular: as per HPI, dyspnea at rest, dyspnea on exertion, leg edema Physical Examination Vital Signs, Last 4 Hours Temp Pulse Resp BP Pulse Ox 05/14/18 09:15 95 05/14/18 07:56 97.5 F L 69 15 126/68 95 General: Conversant, No Apparent Distress HEENT: Atraumatic, Normocephaly, Mucus Membranes Moist Neck: No JVD, Normal carotid pulses Cardiac: Reg Rate and Rhythm, Normal S1 and S2, No Murmur Lungs: Normal Breath Sounds, No Wheeze, Rales, Rhonchi Neuro: Alert and responsive, No focal deficits noted Abdomen: Soft, Non-Tender Skin: No rashes noted on visualized skin Musculoskeletal: No Chest Wall Tenderness Extremities: No Clubbing, No Cyanosis, Normal Pulses, Other (2+ bilateral lower extremity pitting edema noted. ) Results 05/14/18 05:42 05/14/18 05:42 Lab Results Active Medications Acetaminophen (Tylenol) 650 mg PO Q6HR PRN PRN Reason: Mild Pain/Fever Stop: 11/11/18 14:15 Hydrocodone Bitart/Acetaminophen ([place] 5-325 Mg) 1 tab PO Q6HR PRN PRN Reason: Moderate Pain Stop: 11/11/18 14:15 Albuterol/Ipratropium (Duoneb) 3 ml IH [id number] PRN PRN Reason: Shortness Of Breath/Wheezing Stop: 11/11/18 14:50 Last Admin: 05/14/18 10:11 Dose: 3 ml Aspirin (Aspirin Ec) 81 mg PO DAILY [facility] Stop: 11/12/18 09:01 Last Admin: 05/14/18 08:59 Dose: 81 mg Atorvastatin Calcium (Lipitor) 40 mg PO HS [facility] Stop: 11/11/18 21:01 Last Admin: 05/13/18 20:38 Dose: 40 mg Budesonide/Formoterol Fumarate (Symbicort) 2 puff IH BIDR ABBE Stop: 11/11/18 22:01 Last Admin: 05/14/18 10:11 Dose: 2 puff Carvedilol (Coreg) 3.125 mg PO BIDWM [facility] Stop: 11/11/18 17:01 Last Admin: 05/14/18 08:59 Dose: 3.125 mg Escitalopram Oxalate (Lexapro) 5 mg PO DAILY [facility] Stop: 11/12/18 09:01 Last Admin: 05/14/18 08:59 Dose: 5 mg Fluticasone Propionate (Flonase) 50 mcg NS DAILY PRN; Protocol PRN Reason: Allergy Symptoms Stop: 11/11/18 14:21 Furosemide (Lasix) 40 mg IVP BIDDIURETIC ABBE Stop: 11/11/18 17:01 Last Admin: 05/14/18 08:59 Dose: 40 mg Heparin Sodium (Porcine) (Heparin) 5,000 unit SQ Q8HCO ABBE Stop: 11/11/18 22:01 Last Admin: 05/14/18 06:07 Dose: 5,000 unit Loratadine (Claritin) 10 mg PO DAILY ABBE PRN Reason: Protocol Stop: 11/12/18 09:01 Last Admin: 05/14/18 08:58 Dose: 10 mg Montelukast Sodium (Singulair) 10 mg PO HS [facility] Stop: 11/11/18 21:01 Last Admin: 05/13/18 20:38 Dose: 10 mg Naloxone HCl (Narcan) 0.4 mg IVP Q2MIN PRN PRN Reason: SEE COMMENTS Stop: 11/11/18 14:15 Oxycodone HCl (Roxicodone) 10 mg PO Q6HR PRN PRN Reason: Severe Pain Stop: 11/11/18 14:15 Spironolactone (Aldactone) 50 mg PO DAILY ABBE Stop: 11/12/18 09:01 Last Admin: 05/14/18 08:58 Dose: 50 mg Laboratory Tests 05/12/18 05/12/18 05/12/18 12:07 12:07 18:22 Hgb Creatinine 1.81 H Troponin I 0.06 H* 0.05 H* B-Natriuretic Peptide 1771 H 05/13/18 05/13/18 05/14/18 00:20 06:09 05:42 Hgb 16.4 Creatinine Troponin I 0.06 H* 0.06 H* B-Natriuretic Peptide 05/14/18 05:42 Hgb Creatinine 1.76 H Troponin I B-Natriuretic Peptide - Imaging and Cardiology Chest Xray: report reviewed Echo: report reviewed Cardiac cath: report reviewed - EKG Interpretation EKG results cardiology: personally reviewed (ECG with paced rhythm, HR 89. Frequent PVCs noted. LBBB), other (Telemetry reviewed with average HR previous 12 hours noted to be 91, paced rhythm. Frequent PVCs noted, PACs noted.) Consult Discharge Plan - Plan Referrals: Virginie Everett MD [Primary Care Provider] -
[2018-05-15] MEDS: *HR* Heparin 5,000 UNIT/ML VIAL SQ SCH ×3 (05:14→22:31)
[2018-05-15 05:55] LABS: Calcium 9.8 mg/dL (8.6-10.3); Potassium 3.3 mEq/L (3.5-5.1)
[2018-05-15] MEDS: Budesonide/Formoterol 80/4.5 MDI IH SCH ×2 (07:37→21:40)
[2018-05-15] MEDS: Furosemide 40 MG/4 ML VIAL IVP SCH ×2 (10:09→16:33)
[2018-05-15] MEDS: Loratadine 10 MG TABLET PO SCH (10:10)
[2018-05-15] MEDS: Aspirin Enteric Coated 81 MG Tablet PO SCH (10:10)
--- NOTE | 2018-05-15 11:18 | Internal Med Progress Note ---
Hospitalist Progress Note - Encounter Date of Encounter: 05/15/18 Time of Encounter: 09:40 - Subjective Interval History: Patient continues to improve. Has had good urine output. His voice has become more hoarse due to cough. Denies any chest pain. Shortness of breath is significantly improved. - Exam Vitals: Temp Pulse Resp BP Pulse Ox 97.6 F 50 19 101/76 95 05/15/18 08:03 05/15/18 08:03 05/15/18 08:03 05/15/18 08:03 05/15/18 10:53 Exam: General: Patient is alert, no acute distress, oriented x 3 Respiratory: Good respiratory effort. Normal breath sounds. Basal crackles Cardiovascular: Regular rate and rhythm. s1 and s2 normal No clicks, rubs, gallops, or murmurs. Bilateral pitting pedal edema Abdomen: Abdomen is soft, nontender. Bowel sounds are present Musculoskeletal: Spontaneously moving all extremities Skin: warm, dry, intact. Neuro: Alert oriented x 3 normal cranial nerves, no focal deficits - Assessment and Plan (1) CHF exacerbation Current Visit: Yes Status: Acute Assessment and Plan: Continue intravenous diuresis. Patient has had good output and has had negative 4L fluid balance. We will continue IV diuresis for another day and transition to oral diuretics tomorrow. Possible discharge tomorrow if patient continues to improve clinically. Moderate risk for complications. (2) COPD (chronic obstructive pulmonary disease) Current Visit: Yes Status: Chronic Assessment and Plan: Continue bronchodilators as needed. (3) DVT prophylaxis Current Visit: Yes Status: Acute Assessment and Plan: Continue subcutaneous heparin (4) Morbid obesity with BMI of 45.0-49.9, adult Current Visit: Yes Status: Chronic (5) Acute on chronic renal failure Current Visit: Yes Status: Acute Assessment and Plan: Stable renal function. We will continue to monitor. (6) Chronic respiratory failure with hypoxia Current Visit: Yes Status: Chronic Assessment and Plan: Continue O2 supplementation - Time Spent with Patient Total time spent is greater than 50% in coordination of care (as documented) at patient's floor/unit and/or counseling patient: Internal Medicine: Result - Labs CBC & Chem 7: 05/14/18 05:42 05/15/18 04:52 Labs: BMP 05/15/18 04:52 Sodium 134 L Potassium 3.3 L Chloride 94 L Carbon Dioxide 26 BUN 22 Creatinine 1.78 H Glucose 111 H Calcium 9.8 Consult Discharge Plan - Plan Referrals: Virginie Everett MD [Primary Care Provider] - 05/18/18 1:30 pm (Please follow up as schedule...) (1) CHF exacerbation Qualifiers: Heart failure type: systolic Qualified Code(s): I50.23 - Acute on chronic systolic (congestive) heart failure (2) COPD (chronic obstructive pulmonary disease) Qualifiers: COPD type: emphysema Emphysema type: panlobular Qualified Code(s): J43.1 - Panlobular emphysema (5) Acute on chronic renal failure Qualifiers: Acute renal failure type: unspecified Chronic kidney disease stage: stage 3 ( moderate) Qualified Code(s): N17.9 - Acute kidney failure, unspecified; N18.3 - Chronic kidney disease, stage 3 (moderate)
--- NOTE | 2018-05-15 11:48 | Cardiology Progress Note ---
Date of Encounter: 05/15/18 Time of Encounter: 11:46 Assessment and Plan (1) Systolic CHF, acute on chronic Current Visit: No Status: Acute Per cardiology: -Admitted with acute on chronic CHF, reports class III symptoms. Chest x-ray with pulmonary vascular congestion. BNP 1771. -Known NICM, LVEF 30%. Has AICD. On BB, has not previously been on rehana/arb due to hypotension, now with KAMERON on CKD. -Reports missed dose of aldactone at home. -Volume overloaded on exam, however patient reports about his baseline today. -On lasix and aldactone in outpatient setting. Was started on metalazone inpatient. However, renal function worse than baseline. -Currently net negative 3500ml. Weight down 7kg since admission. -reprots compliance with sodium, fluid restriction. -Of note, has been recommended for referral for advanced heart failure therapy in outpatient setting, and patient has historically declined. -Agree with IV diuresis. Almost baseline, should be ready for D/C tomorrow. Discussion w patient/family: The assessment and plan as outlined above was discussed with the patient and/or family members who expressed understanding and agreement. All questions were answered. Thank you for involving us in the care of your patient. Please call with any questions. Subjective Principal diagnosis: CHF Interval history: Significant diuresis yesterday, says he's better than baseline. Objective Vital Signs, Last 4 Hours Temp Pulse Resp BP Pulse Ox 05/15/18 11:36 97.9 F 111 20 117/76 93 05/15/18 11:14 97.9 F 111 20 117/76 93 05/15/18 10:53 95 05/15/18 08:03 97.6 F 50 19 101/76 94 General: Conversant, No Apparent Distress HEENT: Atraumatic, Normocephaly, Mucus Membranes Moist Neck: No JVD, Normal carotid pulses Cardiac: Reg Rate and Rhythm, Normal S1 and S2, No Murmur Lungs: Other (decreased at bases) Neuro: Alert and responsive, No focal deficits noted Abdomen: Soft, Non-Tender Skin: No rashes noted on visualized skin Results 05/14/18 05:42 05/15/18 04:52 Lab Results 05/15/18 04:52 Sodium 134 L Potassium 3.3 L Chloride 94 L Carbon Dioxide 26 BUN 22 Creatinine 1.78 H Glucose 111 H Calcium 9.8 Consult Discharge Plan - Plan Referrals: Virginie Everett MD [Primary Care Provider] - 05/18/18 1:30 pm (Please follow up as schedule...)
[2018-05-15] MEDS: Ipratropium/Albuterol Neb 3 ML IH PRN (21:48)
[2018-05-16] MEDS: *HR* Heparin 5,000 UNIT/ML VIAL SQ SCH (06:51)
[2018-05-16] MEDS: Budesonide/Formoterol 80/4.5 MDI IH SCH (08:10)
[2018-05-16] MEDS: Aspirin Enteric Coated 81 MG Tablet PO SCH (08:18)
[2018-05-16] MEDS: Loratadine 10 MG TABLET PO SCH (08:18)
[2018-05-16] MEDS: Furosemide 40 MG/4 ML VIAL IVP SCH (08:19)
[2018-05-16 08:27] VITALS: BP 114/93
[2018-05-16 09:50] LABS: Calcium 9.9 mg/dL (8.6-10.3); Potassium 3.5 mEq/L (3.5-5.1)
--- NOTE | 2018-05-16 10:54 | Discharge Summary ---
- NOTES TO OUTPATIENT PROVIDER Notes to Outpatient Provider: Patient with a history of cardiomyopathy and congestive heart failure was hospitalized here with acute congestive heart failure. He was treated with intravenous diuretics and his symptoms have slowly improved. He is now feeling much better and is clinically stable for discharge home. He will be discharged home on Lasix twice daily. He does have chronic kidney disease and his renal function has worsened on the past month most likely related to use of intravenous diuretic agents. This needs to be closely followed as outpatient. Date of Encounter: 05/16/18 Time of Encounter: 09:45 - Discharge Diagnosis (1) CHF exacerbation Priority: Primary Status: Acute Qualifiers: Heart failure type: systolic Qualified Code(s): I50.23 - Acute on chronic systolic (congestive) heart failure (2) COPD (chronic obstructive pulmonary disease) Priority: Secondary Status: Chronic Qualifiers: COPD type: emphysema Emphysema type: panlobular Qualified Code(s): J43.1 - Panlobular emphysema (3) DVT prophylaxis Priority: Secondary Status: Acute (4) Morbid obesity with BMI of 45.0-49.9, adult Priority: Secondary Status: Chronic (5) Acute on chronic renal failure Priority: Secondary Status: Acute Qualifiers: Acute renal failure type: unspecified Chronic kidney disease stage: stage 3 (moderate) Qualified Code(s): N17.9 - Acute kidney failure, unspecified; N18.3 - Chronic kidney disease, stage 3 (moderate) (6) Chronic respiratory failure with hypoxia Priority: Secondary Status: Chronic Hospital course: Mr. Gomez is a 63 year old male Patient with a history of cardiomyopathy and congestive heart failure was hospitalized here with acute congestive heart failure. He was treated with intravenous diuretics and his symptoms have slowly improved. He is now feeling much better and is clinically stable for discharge home. He will be discharged home on Lasix twice daily. He does have chronic kidney disease and his renal function has worsened on the past month most likely related to use of intravenous diuretic agents. This needs to be closely followed as outpatient. He was evaluated by cardiology here and they recommended increasing his beta munira dose. However patient has been having bradycardia and hypotension and so his dose has not been changed to discharge. He will also hold his spironolactone for 3 days and have his basic panel checked and follow-up with his PCP. Discharge discussed with: patient - Time Spent with Patient Total time spent providing and/or coordinating discharge services: Less than 30 minutes (25 min) - Discharge Medications Home Medications: Albuterol Sulfate [Albuterol Inhaler] 2 puff IH Q4HR PRN 01/17/18 [History] Aspirin [Adult Aspirin Regimen] 81 mg PO DAILY 01/17/18 [History] Atorvastatin [Lipitor] 40 mg PO HS 01/17/18 [History] Carvedilol 3.125 mg PO BID 01/17/18 [History] Fluticasone Propionate Nasal [Flonase] 2 spr NS DAILY PRN 01/17/18 [History] Fluticasone/Salmeterol [Advair Hfa 115-21 Mcg Inhaler] 2 puff IH BID 01/17/18 [ History] Loratadine [Allergy Relief] 10 mg PO DAILY 01/17/18 [History] Montelukast [Singulair] 10 mg PO HS 01/17/18 [History] Spironolactone [Aldactone] 50 mg PO DAILY #30 tablet 03/30/18 [Rx] Furosemide [Lasix] 40 mg PO BID 04/08/18 [History] Ipratropium/Albuterol Neb [Duoneb] 3 ml IH TID 04/08/18 [History] Escitalopram [Lexapro] 5 mg PO DAILY 05/12/18 [History] Allergies/Adverse Reactions: 3 Allergy/AdvReac Type Severity Reaction Status Date / Time penicillin V Allergy Severe See Verified 04/08/18 16:28 Comments Penicillins Allergy Severe Anaphylaxis Verified 04/08/18 16:28 Date of admission: 05/12/18 14:34 Primary care physician: Virginie Everett MD Consults: 05/12/18 17:24 Consult to Alliance Manager [CONS] Routine Reason for SW Consult: Family and patient would like assistance with advanced directives paperwork. 05/13/18 13:00 Consult to Cardiology [CONS] Routine Comment: Consulting Provider: Cardiology Gissell Reason for Consult: SOB , CHF with EF 10% Call Completed: Yes Discharging clinician: Kelly Merritt Anticipated date of discharge: 05/16/18 - Constitutional Vitals: Temp Pulse Resp BP Pulse Ox 98.0 F 50 18 114/93 93 05/16/18 08:26 05/16/18 08:26 05/16/18 08:26 05/16/18 08:26 05/16/18 08:26 General appearance: Present: A&O X 3, morbidly obese, no acute distress, answers questions appropriately Exam: . - Respiratory Respiratory exam: Present: CTAB. Absent: accessory muscle use, rales, rhonchi, wheezes - Cardiovascular Cardiovascular exam: Present: RRR, +S1, +S2. Absent: diastolic murmur, gallop, rubs, systolic murmur - GI/Abdominal GI/Abdominal exam: Present: normal bowel sounds, soft, no peritoneal signs. Absent: distended, tenderness - Extremities Exam Extremities exam: Present: pedal edema, warm, radial pulses palpable and symmetrical. Absent: calf tenderness, cyanotic - Neurological Exam Neurological exam: Present: CN II-XII intact, oriented X3, no focal deficits. Absent: facial droop, speech deficit - Patient Status Disposition: Home, Self-Care Condition: Good Functional capacity at discharge: independent ambulation Overall status at discharge: patient is progressing back to baseline - Ambulatory Orders Ambulatory Orders: Basic Metabolic Panel [CHEM] Time Frame: 2 Days, Facility: [facility], Location: Lab - Discharge Instructions Follow Up With: Virginie Everett MD [Primary Care Provider] - 05/18/18 1:30 pm (Please follow up as schedule...) Ricky Gonzales DO [Partnered Physician] - (in 1-2 weeks ) Additional Instructions: Hold spironolactone for 3 days - Diet and Activity Activity: increase activity as tolerated Diet: low fat, low cholesterol, low salt diet, other (Diet restriction to 1.5 L per day)
== END 2018-05-16 13:20 | disposition home or self-care (01) ==
LOC: EMEROOARM 10:57 → 2ANU 10:57 → SUATTDRO 14:34 → 2ANU 15:15
PROVIDERS: ADMIT Internal Medicine; ATTEND Internal Medicine